=== PATIENT | female | born 1990 | race Caucasian/White ===

== ENCOUNTER 2017-02-01 02:25 | Outpatient (CLI) | payer OTHER | END 2017-02-01 02:26 | disposition critical access hospital (66) | DX: M25.812 Other specified joint disorders, left shoulder (principal); M25.512 Pain in left shoulder | CPT/HCPCS: A0425; A0429 ==

== ENCOUNTER 2017-02-01 02:36 | Emergency (ER) | payer OTHER | END 2017-02-01 07:34 | disposition home or self-care (01) | DX: S49.92XA Unspecified injury of left shoulder and upper arm, initial encounter (principal); W50.0XXA Accidental hit or strike by another person, initial encounter; F10.129 Alcohol abuse with intoxication, unspecified ==

== ENCOUNTER 2017-05-28 21:56 | Outpatient (CLI) | payer OTHER | END 2017-05-28 21:57 | disposition critical access hospital (66) | LOC: EMS 21:56 | PROVIDERS: ATTEND Surgery | DX: R07.9 Chest pain, unspecified (principal); R42 Dizziness and giddiness | CPT/HCPCS: A0425; A0429 ==

== ENCOUNTER 2017-05-28 22:09 | Emergency (ER) | payer OTHER ==
--- NOTE | 2017-05-28 22:13 | ED Physician Documentation ---
PD HPI SYNCOPE - Stated complaint Stated Complaint: NEAR SYNCOPE - History obtained from History obtained from: Patient - History of Present Illness Witnessed: Witnessed Timing - onset: Today Preceding symptoms: Chest pain (she has been having some chest pain, sharp and central/left substernal. Was initially with activity earlier in the day, and then noted it at rest as well. Sharp pain radiating to back. 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 Got feeling very weak. Some dyspnea as well. Brought here to ED for evaluation. Medics noted HR in 40s , but BP was adequate. Patient says her resting HR is typically 45-55.) Associated symptoms: Chest pain, Dyspnea. No: Nausea / vomiting, Abdominal pain Contributing factors: Exertion. No: Recent med change, Decreased PO intake Injury occurred: No: Head injury, Neck injury Treatment RAFTSMAN: Fluids Similar symptoms before: Has not had sx before Recently seen: Not recently seen Review of Systems Constitutional: denies: Fever, Chills Nose: denies: Rhinorrhea / runny nose, Congestion Throat: denies: Sore throat Cardiac: reports: Chest pain / pressure. denies: Palpitations, Pedal edema, Calf pain Respiratory: reports: Dyspnea. 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 : None HEENT: None Psych: None Musculoskeletal: None Derm: None - Past Surgical History Past Surgical History: Yes General: Appendectomy, Other Ortho: Other /BEAM DYER OPERATOR: LEEP (Cervical surgery), Other HEENT: Tonsil/Adenoidectomy - Present Medications Home Medications: Ambulatory Orders Medication Instructions Recorded Confirmed Fluticasone [Flonase] 1 spray NS DAILY 04/17/16 04/17/16 Cetirizine [ZyrTEC] 02/01/17 Cholecalciferol (Vitamin D3) 2,000 unit PO DAILY 05/28/17 05/28/17 [Vitamin D] Epinephrine [Epipen 2-Michael] 0.3 mg IJ .FREQ 05/28/17 05/28/17 Omeprazole [PriLOSEC] 20 mg PO DAILY 05/28/17 05/28/17 Hydrocodone/Acetaminophen [[place] 1 each PO Q6H PRN #15 tablet 05/29/17 5-325 Tablet] Naproxen [Naprosyn] 500 mg PO BID PRN #20 tablet 05/29/17 - Allergies Allergies/Adverse Reactions: Allergies Allergy/AdvReac Type Severity Reaction Status Date / Time Latex, Natural Rubber AdvReac Rash Verified 02/01/17 02:39 sulfamethoxazole AdvReac Hives Verified 02/01/17 02:39 [From Bactrim] trimethoprim [From Bactrim] AdvReac Hives Verified 02/01/17 02:39 - Social History Does the pt smoke?: No Smoking Status: Never smoker Does the pt drink ETOH?: No Does the pt have substance abuse?: No - Family History Family history: denies: Sudden , Aortic aneursym, Aortic dissection - Immunizations Immunizations are current?: Yes - POLST Patient has POLST: No PD ED PE NORMAL - Vitals Vital signs reviewed: Yes - General General: Alert and oriented X 3, No acute distress, Well developed/nourished - HEENT HEENT: Moist mucous membranes, Pharynx benign - Neck Neck: Supple, no meningeal sign, No adenopathy - Cardiac Cardiac: RRR, No murmur - Respiratory Respiratory: No respiratory distress, Clear bilaterally, Other (no chestwall tenderness) - Abdomen Abdomen: Soft, Non tender - Female Female : Deferred - Rectal Rectal: Deferred - Back Back: No CVA TTP - Derm Derm: Normal color, Warm and dry, No rash - Extremities Extremities: No tenderness to palpate, Normal ROM s pain, No edema, No calf tenderness / cord - Neuro Neuro: Alert and oriented X 3, No motor deficit, Normal speech Results - Vitals Vitals: Vital Signs - 24 hr 05/29/17 05/29/17 00:14 01:28 Heart Rate 56 L 49 L Respiratory 16 18 Rate Blood Pressure 111/69 118/68 O2 Saturation 100 100 Oxygen O2 Source Room air - EKG (time done) 22:24 Rate: Rate (enter#) (49) Rhythm: Sinus bradycardia [place]: Normal Intervals: Normal [place] QRS: Normal Ischemia: Normal ST segments. No: ST elevation c/w ischemia, ST depression - Labs Labs: Laboratory Tests 05/28/17 05/28/17 05/28/17 22:37 22:37 22:37 WBC 12.8 H RBC 4.86 Hgb 14.3 Hct 43.2 MCV 89.0 MCH 29.5 MCHC 33.1 RDW 13.0 Plt Count 293 MPV 10.3 Neut # 8.4 H Lymph # 3.5 [place] # 0.6 Eos # 0.2 Baso # 0.2 H Absolute Nucleated RBC 0.00 Nucleated RBCs 0.0 ESR 4 Sodium 139 Potassium 3.5 Chloride 103 Carbon Dioxide 27 Anion Gap 9.0 BUN 12 Creatinine 0.9 Estimated GFR (MDRD) 74 L Glucose 94 Calcium 9.7 Total Bilirubin 0.3 AST 21 ALT 14 Alkaline Phosphatase 76 Troponin I Total Protein 7.5 Albumin 4.6 Globulin 2.9 Albumin/Globulin Ratio 1.6 Lipase 24 Serum HCG, Qual Ur Specific [place] Urine HCG, Qual 05/28/17 05/28/17 05/28/17 22:37 22:37 23:30 WBC RBC Hgb Hct MCV MCH MCHC RDW Plt Count MPV Neut # Lymph # [place] # Eos # Baso # Absolute Nucleated RBC Nucleated RBCs ESR Sodium Potassium Chloride Carbon Dioxide Anion Gap BUN Creatinine Estimated GFR (MDRD) Glucose Calcium Total Bilirubin AST ALT Alkaline Phosphatase Troponin I < 0.04 Total Protein Albumin Globulin Albumin/Globulin Ratio Lipase Serum HCG, Qual NEGATIVE Ur Specific [place] <=1.005 Urine HCG, Qual NEGATIVE - Rads (name of study) chest Radiology: Prelim report reviewed, EMP read contemporaneously (normal) aorta angio Radiology: Prelim report reviewed (normal) PD MEDICAL DECISION MAKING - ED course Complexity details: reviewed results, considered differential (She says her resting heart rate is commonly 45-55, so this is not new. She is having sharp knife-like pain in substernal area to the back and was asssoicated with near- syncope earlier. I felt concern for aortic dissection, violet as pain came on with some exertion. Got CT as well, which was normal. Presume musculoskeletal of some sort. ), d/w patient Departure - Departure Disposition: 01 Home, Self Care Clinical Impression: Near syncope Chest pain Qualifiers: Chest pain type: unspecified Qualified Code(s): R07.9 - Chest pain, unspecified Condition: Stable Record reviewed to determine appropriate education?: Yes Instructions: ED Chest Pain Atypical Unkn Cause Follow-Up: Sharri Muñoz PA-C [Primary Care Provider] - Prescriptions: Naproxen [Naprosyn] 500 mg PO BID PRN #20 tablet PRN Reason: Pain Hydrocodone/Acetaminophen [[place] 5-325 Tablet] 1 each PO Q6H PRN #15 tablet PRN Reason: Pain Forms: Activity restrictions Discharge Date/Time: 05/29/17 01:50
[2017-05-28] MEDS ORDERED: KETOROLAC 60 MG/2 ML VIAL IVP STA (22:24)
[2017-05-28] MEDS ORDERED: SODIUM CHLORIDE 0.9% 1,000 ML IV ONE (22:24)
[2017-05-28] MEDS ORDERED: MORPHINE 10 MG/ML VIAL IVP STA (22:25)
[2017-05-28] MEDS ORDERED: KETOROLAC 30 MG/ML VIAL ONE (22:44)
[2017-05-28 22:45] LABS: BASOPHILS # (AUTO) 0.2 10^3/uL (0.0-0.1); BASOPHILS % (AUTO) 1.3 %; EOSINOPHILS # (AUTO) 0.2 10^3/uL (0.0-0.7); EOSINOPHILS % (AUTO) 1.2 %; HCT - HEMATOCRIT 43.2 % (37.0-47.0); HGB - HEMOGLOBIN 14.3 g/dL (12.0-16.0); LYMPHOCYTES # (AUTO) 3.5 10^3/uL (1.5-3.5); LYMPHOCYTES % (AUTO) 27.3 %; MEAN CORPUSCULAR HEMOGLOBIN 29.5 pg (27.0-31.0); MEAN CORPUSCULAR HGB CONC 33.1 g/dL (32.0-36.0); MEAN PLATELET VOLUME 10.3 fL (7.9-10.8); MONOCYTES # (AUTO) 0.6 10^3/uL (0.0-1.0); MONOCYTES % (AUTO) 4.3 %; NEUTROPHILS # (AUTO) 8.4 10^3/uL (1.5-6.6); NEUTROPHILS % (AUTO) 65.9 %; RED BLOOD COUNT 4.86 10^6/uL (4.20-5.40); UNCORRECTED WHITE BLOOD COUNT 12.8 x10^3/uL; WHITE BLOOD COUNT 12.8 x10^3/uL (4.8-10.8)
[2017-05-28] MEDS ORDERED: MORPHINE 2 MG/ML SYRINGE ONE (22:45)
[2017-05-28] MEDS ORDERED: MORPHINE 10 MG/ML VIAL ONE (22:48)
[2017-05-28] MEDS ORDERED: ONDANSETRON 4 MG/2 ML VIAL IVP STA (22:58)
[2017-05-28] MEDS ORDERED: ONDANSETRON 4 MG/2 ML VIAL ONE (22:59)
[2017-05-28 23:13] LABS: ALBUMIN/GLOBULIN RATIO 1.6 (1.0-2.2); BILIRUBIN,TOTAL 0.3 mg/dL (0.2-1.0); CALCIUM 9.7 mg/dL (8.5-10.3); CREATININE 0.9 mg/dL (0.4-1.0); POTASSIUM 3.5 mmol/L (3.5-5.0); TOTAL PROTEIN 7.5 g/dL (6.7-8.2)
--- NOTE | 2017-05-28 23:28 | XRAY Preliminary Report ---
Exam: XR Chest 2 View PA/LAT IMPRESSION: Normal 2-view chest radiography. [facility] SITE ID: [id number]
--- NOTE | 2017-05-28 23:30 | XRAY Report ---
EXAM: CHEST RADIOGRAPHY EXAM DATE: 05/28/2017 11:20 PM. CLINICAL HISTORY: Anterior chest pain. COMPARISON: 04/17/2016. TECHNIQUE: 2 views. FINDINGS: Lungs/Pleura: No focal opacities evident. No pleural effusion. No pneumothorax. Normal volumes. Mediastinum: Heart and mediastinal contours are unremarkable. Other: None. IMPRESSION: Normal 2-view chest radiography. [facility] Referring Provider Line: [phone] SITE ID: [id number]
[2017-05-28] MEDS ORDERED: HYDROmorphone 1 MG/ML SYRINGE IVP STA (23:46)
[2017-05-29] MEDS ORDERED: HYDROmorphone 1 MG/ML SYRINGE ONE (00:11)
[2017-05-29 00:23] LABS: HCG UR QUAL NEGATIVE
[2017-05-29] MEDS ORDERED: IOPAMIDOL-300 100 ML VIAL IVP ONE (01:08)
--- NOTE | 2017-05-29 01:31 | CT Preliminary Report ---
Exam: CT Chest Angio (AORTA) IMPRESSION: 1. No aortic aneurysm or dissection. 2. No pulmonary emboli. [facility] SITE ID: [id number]
[2017-05-29 01:32] VITALS: BP 118/68
--- NOTE | 2017-05-29 01:34 | CT Report ---
EXAM: CT ANGIOGRAM CHEST EXAM DATE: 05/29/2017 01:07 AM. CLINICAL HISTORY: Chest pain. COMPARISON: None. TECHNIQUE: Routine helical imaging was performed through the chest in the arterial phase. IV contrast : Nonionic. Reconstructions: Coronal, sagittal, and 3D MIP reconstructions of the aorta. In accordance with CT protocol optimization, one or more of the following dose reduction techniques w ere utilized for this exam: automated exposure control, adjustment of mA and/or KV based on patient s ize, or use of iterative reconstructive technique. FINDINGS: Vascular Structures: No aneurysm, dissection, or significant atherosclerotic disease of the thoracic aorta. Arch vessels are unremarkable. Visualized portions of the celiac axis, superior mesenteric art vasile, and bilateral renal arteries are unremarkable. The visualized pulmonary arteries are within norm al limits. Lungs/Pleura: Mild bilateral atelectasis. No pleural effusion. No pneumothorax. Mediastinum: Normal. No cardiac enlargement or adenopathy. Upper Abdomen: Unremarkable. Other: None. IMPRESSION: 1. No aortic aneurysm or dissection. 2. No pulmonary emboli. [facility] Referring Provider Line: [phone] SITE ID: [id number]
[2017-05-29] MEDS ORDERED: HYDROcod/ACET 5/325 Prepack 6 PO ONE (01:47)
== END 2017-05-29 01:50 | disposition home or self-care (01) ==
LOC: EDUNIT# → ED 22:09
DX: R55 Syncope and collapse (principal); R07.9 Chest pain, unspecified; R06.00 Dyspnea, unspecified
CPT/HCPCS: 36415; 71020; 71275; 80053; 81025; 83690; 84484; 84703; 85025; 85651; 93005; 96374; 96375; 99284; J1170; Q9967

== ENCOUNTER 2017-08-22 21:07 | Outpatient (CLI) | payer OTHER | END 2017-08-22 21:08 | disposition short-term general hospital (02) | LOC: EMS 21:07 | PROVIDERS: ATTEND Surgery | DX: R07.9 Chest pain, unspecified (principal) | CPT/HCPCS: A0425; A0427 ==

== ENCOUNTER 2018-02-09 13:48 | Outpatient (CLI) | payer OTHER | END 2018-02-09 13:49 | disposition short-term general hospital (02) | LOC: EMS 13:48 | PROVIDERS: ATTEND Surgery | DX: T78.09XA Anaphylactic reaction due to other food products, initial encounter (principal) | CPT/HCPCS: A0425; A0427 ==

== ENCOUNTER 2018-02-21 19:49 | Emergency (ER) | payer OTHER ==
[2018-02-21] MEDS ORDERED: DEXAMETHASONE 10 MG/ML VIAL IM STA (21:09)
[2018-02-21] MEDS ORDERED: LORATADINE 10 MG TABLET PO STA (21:09)
--- NOTE | 2018-02-21 21:11 | ED Physician Documentation ---
PD HPI SKIN - Stated complaint Stated Complaint: POSS ALLERGIC REACTION - Chief complaint Chief Complaint: Wound - History obtained from History obtained from: Patient, Friend - History of Present Illness Timing - onset: Last night (28-year-old with history of food allergies, specifically wheat. Sounds like she has to use epi-pens fairly frequently. She inadvertently ate some week containing food about 7 PM last night and shortly thereafter developed hives and itching all over with mild shortness of breath. She had 2 EpiPen's last night and also self administered steroids and has been taking Benadryl ever since with occasional recurrences of rash and chest pain.) Review of Systems Constitutional: denies: Fever, Chills Nose: denies: Rhinorrhea / runny nose Cardiac: reports: Chest pain / pressure, Palpitations Respiratory: reports: Dyspnea. 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 : None HEENT: None Psych: None Musculoskeletal: None Derm: None - Past Surgical History Past Surgical History: Yes General: Appendectomy, Other Ortho: Other /BEHAVIORAL HEALTH ASSISTANT: LEEP (Cervical surgery), Other HEENT: Tonsil/Adenoidectomy - Present Medications Home Medications: Ambulatory Orders Medication Instructions Recorded Confirmed Fluticasone [Flonase] 1 spray NS DAILY 04/17/16 04/17/16 Cetirizine [ZyrTEC] 02/01/17 Cholecalciferol (Vitamin D3) 2,000 unit PO DAILY 05/28/17 05/28/17 [Vitamin D] Epinephrine [Epipen 2-Michael] 0.3 mg IJ .FREQ 05/28/17 05/28/17 Omeprazole [PriLOSEC] 20 mg PO DAILY 05/28/17 05/28/17 Hydrocodone/Acetaminophen [[place] 1 each PO Q6H PRN #15 tablet 05/29/17 5-325 Tablet] Naproxen [Naprosyn] 500 mg PO BID PRN #20 tablet 05/29/17 EPINEPHrine [Epinephrine] 0.3 mg IJ ONCE PRN #2 auto.injct 02/21/18 hydrOXYzine PAMOATE [Vistaril] 25 mg PO Q6H PRN #15 capsule 02/21/18 - Allergies Allergies/Adverse Reactions: Allergies Allergy/AdvReac Type Severity Reaction Status Date / Time Latex, Natural Rubber AdvReac Rash Verified 02/21/18 19:59 sulfamethoxazole AdvReac Hives Verified 02/21/18 19:59 [From Bactrim] trimethoprim [From Bactrim] AdvReac Hives Verified 02/21/18 19:59 - Social History Does the pt smoke?: No Smoking Status: Never smoker Does the pt drink ETOH?: No Does the pt have substance abuse?: No - Immunizations Immunizations are current?: Yes - POLST Patient has POLST: No PD ED PE NORMAL - Vitals Vital signs reviewed: Yes - General General: Alert and oriented X 3, No acute distress - HEENT HEENT: PERRL, Pharynx benign - Neck Neck: Supple, no meningeal sign, No bony TTP - Cardiac Cardiac: RRR, No murmur - Respiratory Respiratory: No respiratory distress, Clear bilaterally - Derm Derm: No rash - Neuro Neuro: Alert and oriented X 3, Normal speech Results - Vitals Vitals: Vital Signs - 24 hr 02/21/18 19:57 Temperature 36.0 C L Heart Rate 52 L Respiratory 18 Rate Blood Pressure 119/73 O2 Saturation 100 Oxygen O2 Source Room air - EKG (time done) 2113 Rate: Rate (enter#) (50) Rhythm: NSR [place]: Normal Intervals: Normal [place] QRS: Normal Ischemia: Normal ST segments Computer interpretation: Agree with computer PD MEDICAL DECISION MAKING - ED course ED course: She has symptoms of food allergy but no overt physical signs. I do not think she needs more epinephrine at this juncture, but I did add Pepcid and Claritin to decrease the amount of Benadryl she feels like she needs. Departure - Departure Disposition: 01 Home, Self Care Clinical Impression: Allergic reaction Qualifiers: Encounter type: initial encounter Qualified Code(s): T78.40XA - Allergy, unspecified, initial encounter Condition: Good Record reviewed to determine appropriate education?: Yes Instructions: ED Allergic Reaction General Other Prescriptions: EPINEPHrine [Epinephrine] 0.3 mg IJ ONCE PRN #2 auto.injct PRN Reason: Allergy Symptoms hydrOXYzine PAMOATE [Vistaril] 25 mg PO Q6H PRN #15 capsule PRN Reason: Itching Comments: Continue Pepcid and Claritin which are available [id number] in addition to the antihistamine and steroids. Return if worsening.
[2018-02-21] MEDS: FAMOTIDINE 20 MG TABLET PO STA ×2 (21:15→21:27)
[2018-02-21] MEDS ORDERED: hydrOXYzine PAMOATE 25 MG CAPSULE PO STA (21:19)
[2018-02-21 21:34] VITALS: BP 112/74
== END 2018-02-21 21:34 | disposition home or self-care (01) ==
LOC: ED 19:49
DX: T78.1XXA Other adverse food reactions, not elsewhere classified, initial encounter (principal); X58.XXXA Exposure to other specified factors, initial encounter
CPT/HCPCS: 93005; 96372; 99283; A9270

== ENCOUNTER 2018-08-02 23:16 | Emergency (ER) | payer OTHER ==
[2018-08-02 23:49] LABS: BASOPHILS # (AUTO) 0.1 10^3/uL (0.0-0.1); BASOPHILS % (AUTO) 1.2 %; EOSINOPHILS # (AUTO) 0.2 10^3/uL (0.0-0.7); EOSINOPHILS % (AUTO) 1.9 %; HGB - HEMOGLOBIN 13.8 g/dL (12.0-16.0); LYMPHOCYTES # (AUTO) 3.3 10^3/uL (1.5-3.5); LYMPHOCYTES % (AUTO) 32.9 %; MEAN CORPUSCULAR HEMOGLOBIN 29.9 pg (27.0-31.0); MEAN CORPUSCULAR HGB CONC 33.8 g/dL (32.0-36.0); MEAN CORPUSCULAR VOLUME 88.3 fL (81.0-99.0); MEAN PLATELET VOLUME 10.5 fL (7.9-10.8); MONOCYTES # (AUTO) 0.7 10^3/uL (0.0-1.0); MONOCYTES % (AUTO) 6.6 %; NEUTROPHILS # (AUTO) 5.8 10^3/uL (1.5-6.6); NEUTROPHILS % (AUTO) 57.4 %; PLT - PLATELET COUNT 283 10^3/uL (130-450); RED BLOOD COUNT 4.63 10^6/uL (4.20-5.40); RED CELL DISTRIBUTION WIDTH 13.3 % (12.0-15.0); WHITE BLOOD COUNT 10.2 x10^3/uL (4.8-10.8)
[2018-08-03 00:02] LABS: BILIRUBIN,URINE NEGATIVE (NEGATIVE); GLUCOSE, URINE (UA) NEGATIVE (NEGATIVE); KETONES,URINE (UA) TRACE mg/dL (NEGATIVE); LEUKOCYTE ESTERASE, URINE NEGATIVE (NEGATIVE); NITRITE,URINE NEGATIVE (NEGATIVE); OCCULT BLOOD,URINE NEGATIVE (NEGATIVE); PROTEIN,URINE NEGATIVE (NEGATIVE); UROBILINOGEN,URINE 0.2 (NORMAL) E.U./dL (NORMAL)
[2018-08-03 00:03] LABS: ALBUMIN 4.1 g/dL (3.2-5.5); ALBUMIN/GLOBULIN RATIO 1.4 (1.0-2.2); BILIRUBIN,TOTAL 0.2 mg/dL (0.2-1.0); CREATININE 0.9 mg/dL (0.4-1.0)
[2018-08-03 00:03] LABS: CLARITY,URINE CLEAR (CLEAR)
[2018-08-03 00:04] LABS: HCG UR QUAL NEGATIVE
--- NOTE | 2018-08-03 00:17 | ED Physician Documentation ---
PD HPI CHEST PAIN - Stated complaint Stated Complaint: A FIB,CHEST PAIN - Chief complaint Chief Complaint: Cardiac - History obtained from History obtained from: Patient - History of Present Illness Timing - onset: Today Timing - onset during: Rest Timing - details: Abrupt onset, Now resolved Location: Substernal Associated symptoms: Feeling faint / dizzy. No: Shortness of air, Diaphoresis, Nausea Similar symptoms before: Work up / diagnostics, Treatment Recently seen: Clinic - Additional information Additional information: Patient is a 28 year old female with a history of paroxysmal a fib who is presenting to the emergency department for a fib. patient states that she had to stay up for 24 hours so had been drinking coffee. Patient states that today she had an episode of a fib. Patient monitors it on her watch. patient has seen a drive in theater attendant and had heart rate monitors. patient is due to follow up in about 10 days. Upon initial evaluation in the emergency department patient's symptoms had improved. 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 : None HEENT: None Psych: None Musculoskeletal: None Derm: None - Past Surgical History Past Surgical History: Yes General: Appendectomy, Other Ortho: Other /MARKETING OPERATIONS SPECIALIST: LEEP (Cervical surgery), Other HEENT: Tonsil/Adenoidectomy - Present Medications Home Medications: Ambulatory Orders Medication Instructions Recorded Confirmed Fluticasone [Flonase] 1 spray NS DAILY 04/17/16 04/17/16 Cetirizine [ZyrTEC] 02/01/17 Cholecalciferol (Vitamin D3) 2,000 unit PO DAILY 05/28/17 05/28/17 [Vitamin D] Epinephrine [Epipen 2-Michael] 0.3 mg IJ .FREQ 05/28/17 05/28/17 Omeprazole [PriLOSEC] 20 mg PO DAILY 05/28/17 05/28/17 Hydrocodone/Acetaminophen [[place] 1 each PO Q6H PRN #15 tablet 05/29/17 5-325 Tablet] Naproxen [Naprosyn] 500 mg PO BID PRN #20 tablet 05/29/17 EPINEPHrine [Epinephrine] 0.3 mg IJ ONCE PRN #2 auto.injct 02/21/18 hydrOXYzine PAMOATE [Vistaril] 25 mg PO Q6H PRN #15 capsule 02/21/18 Epinephrine [Epipen 2-Michael] 0.3 mg IJ ONCE #1 auto.injct 08/03/18 - Allergies Allergies/Adverse Reactions: Allergies Allergy/AdvReac Type Severity Reaction Status Date / Time Latex, Natural Rubber AdvReac Rash Verified 08/02/18 23:34 sulfamethoxazole AdvReac Hives Verified 08/02/18 23:34 [From Bactrim] trimethoprim [From Bactrim] AdvReac Hives Verified 08/02/18 23:34 - Social History Does the pt smoke?: No Smoking Status: Never smoker Does the pt drink ETOH?: No Does the pt have substance abuse?: No - Immunizations Immunizations are current?: Yes - POLST Patient has POLST: No PD ED PE NORMAL - Vitals Vital signs reviewed: Yes - General General: Alert and oriented X 3, No acute distress, Well developed/nourished - HEENT HEENT: Atraumatic, Moist mucous membranes - Cardiac Cardiac: RRR, No murmur - Respiratory Respiratory: No respiratory distress, Clear bilaterally - Abdomen Abdomen: Soft, Non tender, Non distended - Derm Derm: Normal color, Warm and dry, No rash - Extremities Extremities: No deformity, No edema - Neuro Neuro: Alert and oriented X 3, No motor deficit, Normal speech Eye Opening: Spontaneous Motor: Obeys Commands Verbal: Oriented GCS Score: 15 Results - Vitals Vitals: Vital Signs - 24 hr 08/02/18 23:33 Heart Rate 67 Respiratory 14 Rate Blood Pressure 109/71 O2 Saturation 100 Oxygen O2 Source Room air - EKG (time done) 2330 Rate: Rate (enter#) (61) Rhythm: NSR [place]: Normal QRS: Normal Compare to prior EKG: Unchanged from prior EKG - Labs Labs: Laboratory Tests 08/02/18 08/02/18 08/02/18 23:00 23:00 23:00 WBC 10.2 RBC 4.63 Hgb 13.8 Hct 40.9 MCV 88.3 MCH 29.9 MCHC 33.8 RDW 13.3 Plt Count 283 MPV 10.5 Neut # (Auto) 5.8 Lymph # (Auto) 3.3 [place] # (Auto) 0.7 Eos # (Auto) 0.2 Baso # (Auto) 0.1 Absolute Nucleated RBC 0.00 Nucleated RBC % 0.0 Sodium 137 Potassium 3.7 Chloride 105 Carbon Dioxide 26 Anion Gap 6.0 BUN 12 Creatinine 0.9 Estimated GFR (MDRD) 74 L Glucose 92 Calcium 9.0 Total Bilirubin 0.2 AST 21 ALT 15 Alkaline Phosphatase 67 Troponin I < 0.04 Total Protein 7.0 Albumin 4.1 Globulin 2.9 Albumin/Globulin Ratio 1.4 Lipase 33 TSH Urine Color Urine Clarity Urine pH Ur Specific [place] Urine Protein Urine Glucose (UA) Urine Ketones Urine Occult Blood Urine Nitrite Urine Bilirubin Urine Urobilinogen Ur Leukocyte Esterase Ur Microscopic Review Urine Culture Comments Urine HCG, Qual 08/02/18 08/02/18 23:00 23:52 WBC RBC Hgb Hct MCV MCH MCHC RDW Plt Count MPV Neut # (Auto) Lymph # (Auto) [place] # (Auto) Eos # (Auto) Baso # (Auto) Absolute Nucleated RBC Nucleated RBC % Sodium Potassium Chloride Carbon Dioxide Anion Gap BUN Creatinine Estimated GFR (MDRD) Glucose Calcium Total Bilirubin AST ALT Alkaline Phosphatase Troponin I Total Protein Albumin Globulin Albumin/Globulin Ratio Lipase TSH 4.60 Urine Color YELLOW Urine Clarity CLEAR Urine pH 7.0 Ur Specific [place] 1.015 Urine Protein NEGATIVE Urine Glucose (UA) NEGATIVE Urine Ketones TRACE Urine Occult Blood NEGATIVE Urine Nitrite NEGATIVE Urine Bilirubin NEGATIVE Urine Urobilinogen 0.2 (NORMAL) Ur Leukocyte Esterase NEGATIVE Ur Microscopic Review NOT INDICATED Urine Culture Comments NOT INDICATED Urine HCG, Qual NEGATIVE PD MEDICAL DECISION MAKING - ED course Complexity details: reviewed old records, reviewed results, re-evaluated patient, considered differential, d/w patient, d/w family ED course: Patient was seen and examined at bedside. ekg was performed and showed a sinus rhythm. patient's labs were drawn and her diagnostics were all within normal limits. patient had no episodes of a-fib while in the emergency department. a discussion was had with the patient about started a beta roberto or calcium channel roberto but her resting heart rate is in the 40s. Patient has close cardiac follow up and was stable for discharge with outpatient follow up. - Sepsis Event Vital Signs: Vital Signs - 24 hr 08/02/18 23:33 Heart Rate 67 Respiratory 14 Rate Blood Pressure 109/71 O2 Saturation 100 Oxygen O2 Source Room air Departure - Departure Disposition: Home, Self Care Clinical Impression: Paroxysmal A-fib Condition: Good Instructions: ED Paroxysmal Atrial Flutter Follow-Up: primary,care provider [Other] - Within 3 Days Prescriptions: Epinephrine [Epipen 2-Michael] 0.3 mg IJ ONCE #1 auto.injct Comments: Your diagnostics today were within normal limits. You are likely going into and out of a fib. As you know you should avoid stressors, caffeine, alcohol or stimulants. You should talk with your doctor on sunday for follow up and definitive care. You may return to the emergency department at any time for new, worsening or uncontrollable symptoms. Forms: Activity restrictions
[2018-08-03 01:03] VITALS: BP 116/67
== END 2018-08-03 01:03 | disposition home or self-care (01) ==
LOC: ED 23:16
DX: I48.0 Paroxysmal atrial fibrillation (principal)
CPT/HCPCS: 36415; 80053; 81001; 81003; 81025; 83690; 84443; 84484; 85025; 87086; 93005; 99283; 99284

== ENCOUNTER 2019-03-25 15:10 | Emergency (ER) | payer OTHER ==
--- NOTE | 2019-03-25 15:25 | ED Physician Documentation ---
PD HPI FEMALE - Stated complaint Stated Complaint: FEMALE - History obtained from History obtained from: Patient - History of Present Illness Timing - onset: How many days ago (3) Timing - duration: Days (3) Timing - details: Gradual onset Pain level max: 4 Pain level max: 3 Associated symptoms: Vaginal bleeding. 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 : None HEENT: None Psych: None Musculoskeletal: None Derm: None - Past Surgical History Past Surgical History: Yes General: Appendectomy, Other Ortho: Other /PASTORAL COUNSELOR: LEEP (Cervical surgery), Other HEENT: Tonsil/Adenoidectomy - Present Medications Home Medications: Ambulatory Orders Medication Instructions Recorded Confirmed Fluticasone [Flonase] 1 spray NS DAILY 04/17/16 04/17/16 Cetirizine [ZyrTEC] 02/01/17 Cholecalciferol (Vitamin D3) 2,000 unit PO DAILY 05/28/17 05/28/17 [Vitamin D] EPINEPHrine [Epipen 2-Michael] 0.3 mg IJ .FREQ 05/28/17 05/28/17 Omeprazole [PriLOSEC] 20 mg PO DAILY 05/28/17 05/28/17 Hydrocodone/Acetaminophen [Mchenry 1 each PO Q6H PRN #15 tablet 05/29/17 5-325 Tablet] Naproxen [Naprosyn] 500 mg PO BID PRN #20 tablet 05/29/17 EPINEPHrine [Epinephrine] 0.3 mg IJ ONCE PRN #2 auto.injct 02/21/18 hydrOXYzine PAMOATE [Vistaril] 25 mg PO Q6H PRN #15 capsule 02/21/18 EPINEPHrine [Epipen 2-Michael] 0.3 mg IJ ONCE #1 auto.injct 08/03/18 Oxycodone HCl/Acetaminophen 1 - 2 each PO Q6H PRN #10 tablet 03/25/19 [Percocet 5-325 mg Tablet] - Allergies Allergies/Adverse Reactions: Allergies Allergy/AdvReac Type Severity Reaction Status Date / Time grass pollen Allergy Anaphylaxis Verified 03/25/19 15:25 wheat Allergy Anaphylaxis Verified 03/25/19 15:25 Latex, Natural Rubber AdvReac Rash Verified 03/25/19 15:25 sulfamethoxazole AdvReac Hives Verified 03/25/19 15:25 [From Bactrim] trimethoprim [From Bactrim] AdvReac Hives Verified 03/25/19 15:25 - Social History Does the pt smoke?: No Smoking Status: Never smoker Does the pt drink ETOH?: No Does the pt have substance abuse?: No - Immunizations Immunizations are current?: Yes - POLST Patient has POLST: No PD ED PE NORMAL - Vitals Vital signs reviewed: Yes - General General: Alert and oriented X 3, No acute distress - HEENT HEENT: Moist mucous membranes - Neck Neck: Supple, no meningeal sign - Cardiac Cardiac: RRR - Respiratory Respiratory: No respiratory distress, Clear bilaterally - Abdomen Abdomen: Soft, Non tender, Non distended - Back Back: No CVA TTP, No spinal TTP - Derm Derm: Warm and dry, No rash - Extremities Extremities: No edema - Neuro Neuro: Alert and oriented X 3 - Psych Psych: Normal mood, Normal affect Results - Vitals Vitals: Vital Signs - 24 hr 03/25/19 03/25/19 03/25/19 15:20 15:24 17:18 Temperature 36.8 C Heart Rate 86 77 52 L Respiratory 17 18 14 Rate Blood Pressure 147/80 H 147/80 H 109/61 O2 Saturation 100 100 98 03/25/19 18:08 Temperature Heart Rate 56 L Respiratory 14 Rate Blood Pressure 99/56 L O2 Saturation 99 Oxygen O2 Source Room air - Labs Labs: Laboratory Tests 03/25/19 03/25/19 03/25/19 15:40 15:40 15:40 WBC 8.8 RBC 4.71 Hgb 13.8 Hct 41.4 MCV 87.8 MCH 29.4 MCHC 33.5 RDW 13.3 Plt Count 271 MPV 10.4 Neut # (Auto) 5.7 Lymph # (Auto) 2.4 [place] # (Auto) 0.6 Eos # (Auto) 0.1 Baso # (Auto) 0.1 Absolute Nucleated RBC 0.00 Nucleated RBC % 0.1 PT 12.8 H INR 1.1 APTT 33.5 H Sodium 137 Potassium 3.9 Chloride 100 L Carbon Dioxide 25 Anion Gap 12.0 BUN 7 Creatinine 0.8 Estimated GFR (MDRD) 84 L Glucose 100 Calcium 9.4 Total Bilirubin 0.7 AST 22 ALT 16 Alkaline Phosphatase 56 Total Protein 7.1 Albumin 4.2 Globulin 2.9 Albumin/Globulin Ratio 1.4 Lipase 27 HCG, Quant Urine Color Urine Clarity Urine pH Ur Specific [place] Urine Protein Urine Glucose (UA) Urine Ketones Urine Occult Blood Urine Nitrite Urine Bilirubin Urine Urobilinogen Ur Leukocyte Esterase Urine RBC Urine WBC Ur Squamous Epith Cells Urine Bacteria Ur Microscopic Review Urine Culture Comments Blood Type Antibody Screen 03/25/19 03/25/19 03/25/19 15:40 15:40 16:13 WBC RBC Hgb Hct MCV MCH MCHC RDW Plt Count MPV Neut # (Auto) Lymph # (Auto) [place] # (Auto) Eos # (Auto) Baso # (Auto) Absolute Nucleated RBC Nucleated RBC % PT INR APTT Sodium Potassium Chloride Carbon Dioxide Anion Gap BUN Creatinine Estimated GFR (MDRD) Glucose Calcium Total Bilirubin AST ALT Alkaline Phosphatase Total Protein Albumin Globulin Albumin/Globulin Ratio Lipase HCG, Quant 60492.00 Urine Color RED/BLOODY Urine Clarity CLEAR Urine pH 7.0 Ur Specific [place] <=1.005 Urine Protein 100 H Urine Glucose (UA) NEGATIVE Urine Ketones NEGATIVE Urine Occult Blood LARGE H Urine Nitrite NEGATIVE Urine Bilirubin NEGATIVE Urine Urobilinogen 0.2 (NORMAL) Ur Leukocyte Esterase TRACE H Urine RBC TNTC H Urine WBC 0-3 Ur Squamous Epith Cells NONE SEEN Urine Bacteria None Seen Ur Microscopic Review INDICATED Urine Culture Comments INDICATED Blood Type O POSITIVE Antibody Screen NEGATIVE - Rads (name of study) OB ultrasound Radiology: Prelim report reviewed, EMP read contemporaneously, See rad report (Possible gestational sac at the lower uterine segment in the endometrium, a mean sac diameter measures 5.5 mm corresponding to 4 weeks 3 days, has irregular contour, could represent spontaneous in progress. See above. No embryo or yolk sac is seen. No definite intrauterine is seen. No evidence for an ectopic . An ectopic is not excluded. Follow-up is recommended. Correlate with serial beta hCGs. Posterior uterine intramural fibroid measuring 1.9 x 1.9 x 1.8 cm) PD MEDICAL DECISION MAKING - ED course Complexity details: reviewed old records, reviewed results, re-evaluated patient, considered differential, d/w patient ED course: Bleeding decreased in the emergency department. She appears to be having a spontaneous . This is consistent with the notes from her OB. Her hCG is stable. Her pain is well controlled. Will prescribe pain medication for home. Discussed the case with Dr. Brooks, OB from [facility] on-call who recommends follow-up with serial hCGs in the clinic. Patient counseled regarding signs and symptoms for which I believe and urgent re-evaluation would be necessary. Patient with good understanding of and agreement to plan and is comfortable going home at this time This document was made in part using voice recognition software. While efforts are made to proofread this document, sound alike and grammatical errors may occur. Departure - Departure Disposition: 01 Home, Self Care Clinical Impression: Spontaneous Condition: Good Instructions: ED Miscarriage Incom Follow-Up: Dylon Brooks MD [Physician No Access] - Within 3 Days Prescriptions: Oxycodone HCl/Acetaminophen [Percocet 5-325 mg Tablet] 1 - 2 each PO Q6H PRN #10 tablet PRN Reason: pain Comments: Follow up with OB within 3 days for serial HCG's. Your ultrasound does not show any evidence of an ectopic tonight. It appears that you are miscarrying. Your blood counts are normal. Your HCG level is 12,900. I spoke with Dr. Cecilia hill. Do not drink alcohol or drive while on narcotic pain medicine. Note that many narcotic pain relievers also contain tylenol/acetaminophen. Please ensure that your total dose of acetaminophen from all sources does not exceed 3 grams (3000mg) per day. You may constipated on this medication, take a stool softener such as "Colace" twice a day while you are on it. Also recommend a [id number] laxative such as senna or MiraLAX any day that you do not have a bowel movement. If you received narcotic pain medication in the emergency department, do not drive or operate machinery for the next 24 hours.
[2019-03-25] MEDS ORDERED: SODIUM CHLORIDE 0.9% 1,000 ML IV ONE ×2 (15:33)
[2019-03-25] MEDS ORDERED: ONDANSETRON 4 MG/2 ML VIAL IVP STA (15:43)
[2019-03-25] MEDS ORDERED: HYDROmorphone 1 MG/ML CARPUJECT IVP STA ×2 (15:43→16:50)
[2019-03-25 15:50] LABS: BASOPHILS # (AUTO) 0.1 10^3/uL (0.0-0.1); BASOPHILS % (AUTO) 0.7 %; EOSINOPHILS # (AUTO) 0.1 10^3/uL (0.0-0.7); EOSINOPHILS % (AUTO) 0.9 %; HGB - HEMOGLOBIN 13.8 g/dL (12.0-16.0); LYMPHOCYTES # (AUTO) 2.4 10^3/uL (1.5-3.5); LYMPHOCYTES % (AUTO) 27.6 %; MEAN CORPUSCULAR HEMOGLOBIN 29.4 pg (27.0-31.0); MEAN CORPUSCULAR HGB CONC 33.5 g/dL (32.0-36.0); MEAN CORPUSCULAR VOLUME 87.8 fL (81.0-99.0); MEAN PLATELET VOLUME 10.4 fL (7.9-10.8); MONOCYTES # (AUTO) 0.6 10^3/uL (0.0-1.0); MONOCYTES % (AUTO) 6.5 %; NEUTROPHILS # (AUTO) 5.7 10^3/uL (1.5-6.6); NEUTROPHILS % (AUTO) 64.3 %; PLT - PLATELET COUNT 271 10^3/uL (130-450); RED BLOOD COUNT 4.71 10^6/uL (4.20-5.40); RED CELL DISTRIBUTION WIDTH 13.3 % (12.0-15.0); WHITE BLOOD COUNT 8.8 x10^3/uL (4.8-10.8)
[2019-03-25 16:01] LABS: INR 1.1 (0.8-1.2); PT - PROTHROMBIN TIME 12.8 secs (9.9-12.6)
[2019-03-25 16:03] LABS: ALBUMIN 4.2 g/dL (3.2-5.5); ALBUMIN/GLOBULIN RATIO 1.4 (1.0-2.2); BILIRUBIN,TOTAL 0.7 mg/dL (0.2-1.0); CALCIUM 9.4 mg/dL (8.5-10.3); CREATININE 0.8 mg/dL (0.4-1.0); TOTAL PROTEIN 7.1 g/dL (6.7-8.2)
[2019-03-25 16:08] LABS: PARTIAL THROMBOPLASTIN TIME 33.5 secs (24.9-33.3)
[2019-03-25 16:20] LABS: BILIRUBIN,URINE NEGATIVE (NEGATIVE); GLUCOSE, URINE (UA) NEGATIVE (NEGATIVE); KETONES,URINE (UA) NEGATIVE (NEGATIVE); LEUKOCYTE ESTERASE, URINE TRACE (NEGATIVE); NITRITE,URINE NEGATIVE (NEGATIVE); OCCULT BLOOD,URINE LARGE (NEGATIVE); PROTEIN,URINE 100 mg/dL (NEGATIVE); UROBILINOGEN,URINE 0.2 (NORMAL) E.U./dL (NORMAL)
[2019-03-25 16:21] LABS: CLARITY,URINE CLEAR (CLEAR)
[2019-03-25 16:34] LABS: BACTERIA,URINE None Seen /HPF (None Seen); RBC,URINE TNTC /HPF (0-5); SQUAMOUS EPITHELIAL CELL,UR NONE SEEN (<= Few)
--- NOTE | 2019-03-25 17:22 | Ultrasound Report ---
Reason: 9 weeks EGA, VB Procedure Date: 03/25/2019 Accession Number: [id number] / [id number] Procedure: US - OB First Trimester CPT Code: FULL RESULT: EXAM: FIRST TRIMESTER OBSTETRIC ULTRASOUND ULTRASOUND OB TRANSVAGINAL (Less than 11 weeks) EXAM DATE: 03/25/2019 03:53 PM. CLINICAL HISTORY: 9 weeks EGA, vaginal bleeding. Positive hCG. Left lower quadrant pain. Heavy bleeding. LMP: 01/17/2019, EGA 9 weeks 4 days, GEETA 10/24/2019. COMPARISONS: None. TECHNIQUE: Transabdominal and transvaginal ultrasound examination with static image documentation. ASSESSMENT: Possible gestational sac at the lower uterine segment in the endometrium, a mean sac diameter measures 5.5 mm corresponding to 4 weeks 3 days, has irregular contour, could represent spontaneous in progress. No embryo or yolk sac is seen. No definite intrauterine is seen. The uterus was anteverted. Posterior uterine intramural fibroid measuring 1.9 x 1.9 x 1.8 cm. The cervix appears open with blood clots within it. The right ovary measures 2.8 x 1.3 x 2.4 cm, volume of 4.6 cc. Left ovary measures 2.9 x 1.3 x 2.6 cm with a volume of 5.1 cc. Both ovaries appear within normal limits. No adnexal mass is seen. No free fluid is seen. IMPRESSION: 1.Possible gestational sac at the lower uterine segment in the endometrium, a mean sac diameter measures 5.5 mm corresponding to 4 weeks 3 days, has irregular contour, could represent spontaneous in progress. See above. No embryo or yolk sac is seen. No definite intrauterine is seen. No evidence for an ectopic . An ectopic is not excluded. Follow-up is recommended. Correlate with serial beta hCGs. 2. Posterior uterine intramural fibroid measuring 1.9 x 1.9 x 1.8 cm. RADIA
--- NOTE | 2019-03-25 17:23 | Ultrasound Report ---
Reason: 9 weeks EGA, VB Procedure Date: 03/25/2019 Accession Number: [id number] / [id number] Procedure: US - OB Transvaginal CPT Code: FULL RESULT: EXAM: FIRST TRIMESTER OBSTETRIC ULTRASOUND ULTRASOUND OB TRANSVAGINAL (Less than 11 weeks) EXAM DATE: 03/25/2019 03:53 PM. CLINICAL HISTORY: 9 weeks EGA, vaginal bleeding. Positive hCG. Left lower quadrant pain. Heavy bleeding. LMP: 01/17/2019, EGA 9 weeks 4 days, GEETA 10/24/2019. COMPARISONS: None. TECHNIQUE: Transabdominal and transvaginal ultrasound examination with static image documentation. ASSESSMENT: Possible gestational sac at the lower uterine segment in the endometrium, a mean sac diameter measures 5.5 mm corresponding to 4 weeks 3 days, has irregular contour, could represent spontaneous in progress. No embryo or yolk sac is seen. No definite intrauterine is seen. The uterus was anteverted. Posterior uterine intramural fibroid measuring 1.9 x 1.9 x 1.8 cm. The cervix appears open with blood clots within it. The right ovary measures 2.8 x 1.3 x 2.4 cm, volume of 4.6 cc. Left ovary measures 2.9 x 1.3 x 2.6 cm with a volume of 5.1 cc. Both ovaries appear within normal limits. No adnexal mass is seen. No free fluid is seen. IMPRESSION: 1.Possible gestational sac at the lower uterine segment in the endometrium, a mean sac diameter measures 5.5 mm corresponding to 4 weeks 3 days, has irregular contour, could represent spontaneous in progress. See above. No embryo or yolk sac is seen. No definite intrauterine is seen. No evidence for an ectopic . An ectopic is not excluded. Follow-up is recommended. Correlate with serial beta hCGs. 2. Posterior uterine intramural fibroid measuring 1.9 x 1.9 x 1.8 cm. RADIA
[2019-03-25 18:09] VITALS: BP 99/56
== END 2019-03-25 18:45 | disposition home or self-care (01) ==
LOC: ED 15:10
DX: O20.0 Threatened abortion (principal); O34.11 Maternal care for benign tumor of corpus uteri, first trimester; D25.1 Intramural leiomyoma of uterus; Z3A.09 9 weeks gestation of pregnancy
CPT/HCPCS: 76801; 76817; 80053; 81001; 83690; 84702; 85025; 85610; 85730; 86850; 86900; 86901; 87086; 96361; 96374; 96376; 99283; 99284; J1170; 81003

== ENCOUNTER 2019-09-24 22:22 | Emergency (ER) | payer OTHER ==
--- NOTE | 2019-09-24 23:11 | ED Physician Documentation ---
PD HPI CHEST PAIN - Stated complaint Stated Complaint: CP/DIZZY - Chief complaint Chief Complaint: Cardiac - History obtained from History obtained from: Patient - History of Present Illness Timing - onset: Today Timing - onset during: Rest Timing - duration: Hours Timing - details: Gradual onset, Still present, Waxing and waning Quality: Sharp, Pain Location: Left chest Radiation: No: Jaw, Neck, Back, Abdominal, Left upper extremity, Right upper ext remity Improved by: Nothing Worsened by: Palpation Similar symptoms before: Has not had sx before Recently seen: Not recently seen - Additional information Additional information: 29-year-old female with a prior history of recurrent spontaneous has de veloped some pain in her anterior chest today over the past several hours it is been waxing and waning maximum pain of 8 now 5 and she has not had these symptoms previously. She does have some tenderness to her chest wall she denies any sobbing at night she denies any asthma symptoms. She denies any increase in her pain with exertion and she denies any radiation of the pain. Review of Systems Constitutional: denies: Fever Eyes: denies: Decreased vision Ears: denies: Ear pain Nose: denies: Rhinorrhea / runny nose, Congestion Throat: denies: Sore throat Cardiac: reports: Chest pain / pressure, Palpitations Respiratory: denies: Dyspnea, Cough GI: reports: Nausea Skin: denies: Rash Musculoskeletal: denies: Neck pain, Back pain Neurologic: denies: Generalized weakness, Focal weakness, Numbness PD PAST MEDICAL HISTORY - Past Medical History Past Medical History: Yes Cardiovascular: Atrial fibrillation, Other Respiratory: None Neuro: None Endocrine/Autoimmune: None GI: None 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 : None HEENT: None Psych: None Musculoskeletal: None Derm: None - Past Surgical History Past Surgical History: Yes General: Appendectomy, Other Ortho: Other /SENIOR QUALITATIVE RESEARCHER: LEEP (Cervical surgery), Other HEENT: Tonsil/Adenoidectomy - Present Medications Home Medications: Ambulatory Orders Medication Instructions Recorded Confirmed Fluticasone [Flonase] 1 spray NS DAILY 04/17/16 09/25/19 Cholecalciferol (Vitamin D3) 2,000 unit PO DAILY 05/28/17 09/25/19 [Vitamin D] EPINEPHrine [Epipen 2-Michael] 0.3 mg IJ ONCE #1 auto.injct 08/03/18 09/25/19 Esomeprazole Magnesium [Nexium] 20 mg PO DAILY 09/25/19 09/25/19 Propafenone HCl [Propafenone HCl 225 mg PO BID 09/25/19 09/25/19 ER] - Allergies Allergies/Adverse Reactions: Allergies Allergy/AdvReac Type Severity Reaction Status Date / Time bee venom protein (honey bee) Allergy Anaphylaxis Verified 09/24/19 22:27 grass pollen Allergy Anaphylaxis Verified 03/25/19 15:25 wheat Allergy Anaphylaxis Verified 03/25/19 15:25 Latex, Natural Rubber AdvReac Rash Verified 03/25/19 15:25 sulfamethoxazole AdvReac Hives Verified 03/25/19 15:25 [From Bactrim] trimethoprim [From Bactrim] AdvReac Hives Verified 03/25/19 15:25 - Social History Does the pt smoke?: No Smoking Status: Never smoker Does the pt drink ETOH?: No Does the pt have substance abuse?: No - Immunizations Immunizations are current?: Yes - POLST Patient has POLST: No PD ED PE NORMAL - Vitals Vital signs reviewed: Yes (hypertensive ) - General General: Alert and oriented X 3, No acute distress, Well developed/nourished - HEENT HEENT: Atraumatic, PERRL, EOMI - Neck Neck: Supple, no meningeal sign, No bony TTP - Cardiac Cardiac: RRR, No murmur - Respiratory Respiratory: No respiratory distress, Clear bilaterally, Other (There is tenderness to the anterior chest wall that reproduces the symptoms the patient is having) - Abdomen Abdomen: Soft, Non tender, No organomegaly - Back Back: No CVA TTP, No spinal TTP - Derm Derm: Normal color, Warm and dry, No rash - Extremities Extremities: No deformity, No edema - Neuro Neuro: Alert and oriented X 3, 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, No motor deficit, No sensory deficit, Normal speech Eye Opening: Spontaneous Motor: Obeys Commands Verbal: Oriented GCS Score: 15 - Psych Psych: Normal mood, Normal affect Results - Vitals Vitals: Oxygen O2 Source Room air - EKG (time done) 2229 Rate: Rate (enter#) (58) Rhythm: NSR Intervals: Prolonged MI QRS: Low voltage Compare to prior EKG: Unchanged from prior EKG (SPT 08-02-2018 no changes) Computer interpretation: Agree with computer - Labs Labs: Laboratory Tests 09/24/19 09/24/19 09/24/19 23:05 23:20 23:20 WBC 10.9 H RBC 4.76 Hgb 14.0 Hct 42.2 MCV 88.7 MCH 29.4 MCHC 33.2 RDW 12.5 Plt Count 301 MPV 11.7 H Neut # (Auto) 6.4 Lymph # (Auto) 3.5 [place] # (Auto) 0.7 Eos # (Auto) 0.2 Baso # (Auto) 0.1 Absolute Nucleated RBC 0.00 Nucleated RBC % 0.0 Sodium 139 Potassium 3.9 Chloride 104 Carbon Dioxide 27 Anion Gap 8.0 BUN 18 Creatinine 0.9 Estimated GFR (MDRD) 73 L Glucose 92 Calcium 9.2 Total Bilirubin 0.6 AST 18 ALT 15 Alkaline Phosphatase 66 Troponin I High Sens Total Protein 7.1 Albumin 4.3 Globulin 2.8 Albumin/Globulin Ratio 1.5 Lipase 29 Urine Color YELLOW Urine Clarity CLEAR Urine pH 6.5 Ur Specific [place] <=1.005 Urine Protein NEGATIVE Urine Glucose (UA) NEGATIVE Urine Ketones NEGATIVE Urine Occult Blood NEGATIVE Urine Nitrite NEGATIVE Urine Bilirubin NEGATIVE Urine Urobilinogen 0.2 (NORMAL) Ur Leukocyte Esterase NEGATIVE Ur Microscopic Review NOT INDICATED Urine Culture Comments NOT INDICATED Urine HCG, Qual NEGATIVE 09/24/19 23:20 WBC RBC Hgb Hct MCV MCH MCHC RDW Plt Count MPV Neut # (Auto) Lymph # (Auto) [place] # (Auto) Eos # (Auto) Baso # (Auto) Absolute Nucleated RBC Nucleated RBC % Sodium Potassium Chloride Carbon Dioxide Anion Gap BUN Creatinine Estimated GFR (MDRD) Glucose Calcium Total Bilirubin AST ALT Alkaline Phosphatase Troponin I High Sens < 2.3 L Total Protein Albumin Globulin Albumin/Globulin Ratio Lipase Urine Color Urine Clarity Urine pH Ur Specific [place] Urine Protein Urine Glucose (UA) Urine Ketones Urine Occult Blood Urine Nitrite Urine Bilirubin Urine Urobilinogen Ur Leukocyte Esterase Ur Microscopic Review Urine Culture Comments Urine HCG, Qual - Rads (name of study) chest Radiology: Prelim report reviewed (Impression: Normal two-view chest radiography.), EMP read indepedently, See rad report PD MEDICAL DECISION MAKING - ED course Complexity details: reviewed old records, reviewed results, re-evaluated patient, considered differential, d/w patient, d/w family ED course: 29-year-old female with left-sided parasternal chest pain on palpation has a negative diagnostic work-up including x-ray of the chest electrocardiogram and troponin. There are no other physical exam findings with the exception of the tenderness to the left parasternal area consistent with costochondritis. She indicates that she has had a prior rib injury to this area. I find no other signs of infection. The patient is treated with dexamethasone 10 mg orally and we will encourage the use of ibuprofen for treatment. Departure - Departure Disposition: 01 Home, Self Care Clinical Impression: Costochondritis, acute Condition: Stable Instructions: ED Chest Pain Costochondritis Follow-Up: ALEXSANDRA Morin [Provider Group] Discharge Date/Time: 09/25/19 00:18
[2019-09-24 23:22] LABS: BILIRUBIN,URINE NEGATIVE (NEGATIVE); GLUCOSE, URINE (UA) NEGATIVE (NEGATIVE); KETONES,URINE (UA) NEGATIVE (NEGATIVE); LEUKOCYTE ESTERASE, URINE NEGATIVE (NEGATIVE); NITRITE,URINE NEGATIVE (NEGATIVE); OCCULT BLOOD,URINE NEGATIVE (NEGATIVE); PH,URINE 6.5 PH (5.0-7.5); PROTEIN,URINE NEGATIVE (NEGATIVE); UROBILINOGEN,URINE 0.2 (NORMAL) E.U./dL (NORMAL)
[2019-09-24 23:24] LABS: CLARITY,URINE CLEAR (CLEAR); HCG UR QUAL NEGATIVE
[2019-09-24 23:29] LABS: BASOPHILS # (AUTO) 0.1 10^3/uL (0.0-0.1); EOSINOPHILS # (AUTO) 0.2 10^3/uL (0.0-0.7); EOSINOPHILS % (AUTO) 1.7 %; LYMPHOCYTES # (AUTO) 3.5 10^3/uL (1.5-3.5); LYMPHOCYTES % (AUTO) 32.1 %; MEAN CORPUSCULAR HEMOGLOBIN 29.4 pg (27.0-31.0); MEAN CORPUSCULAR HGB CONC 33.2 g/dL (32.0-36.0); MEAN CORPUSCULAR VOLUME 88.7 fL (81.0-99.0); MEAN PLATELET VOLUME 11.7 fL (7.9-10.8); MONOCYTES # (AUTO) 0.7 10^3/uL (0.0-1.0); MONOCYTES % (AUTO) 6.3 %; NEUTROPHILS # (AUTO) 6.4 10^3/uL (1.5-6.6); NEUTROPHILS % (AUTO) 58.5 %; PLT - PLATELET COUNT 301 10^3/uL (130-450); RED BLOOD COUNT 4.76 10^6/uL (4.20-5.40); RED CELL DISTRIBUTION WIDTH 12.5 % (12.0-15.0); WHITE BLOOD COUNT 10.9 x10^3/uL (4.8-10.8)
[2019-09-24] MEDS ORDERED: DEXAMETHASONE 10 MG/ML VIAL PO STA (23:31)
[2019-09-24] MEDS ORDERED: CHERRY SYRUP 10 ML UDC PO ONE (23:31)
[2019-09-24 23:40] LABS: ALBUMIN 4.3 g/dL (3.2-5.5); ALBUMIN/GLOBULIN RATIO 1.5 (1.0-2.2); BILIRUBIN,TOTAL 0.6 mg/dL (0.2-1.0); CALCIUM 9.2 mg/dL (8.5-10.3); CREATININE 0.9 mg/dL (0.4-1.0); TOTAL PROTEIN 7.1 g/dL (6.7-8.2)
[2019-09-25 00:12] VITALS: BP 98/63
--- NOTE | 2019-09-25 00:23 | XRAY Report ---
Reason: L chest pain Procedure Date: 09/24/2019 Accession Number: [id number] / [id number] Procedure: XR - Chest 2 View X-Ray CPT Code: 09209 Final Report FULL RESULT: EXAM: CHEST RADIOGRAPHY EXAM DATE: 09/24/2019 11:40 PM. CLINICAL HISTORY: L chest pain. COMPARISON: CHEST 2 VIEW PA/LAT 05/28/2017 10:43 PM. TECHNIQUE: 2 views. FINDINGS: Lungs/Pleura: No focal opacities evident. No pleural effusion. No pneumothorax. Normal volumes. Mediastinum: Heart and mediastinal contours are unremarkable. Other: None. IMPRESSION: Normal 2-view chest radiography. RADIA
== END 2019-09-25 00:18 | disposition home or self-care (01) ==
LOC: ED 22:22
DX: M94.0 Chondrocostal junction syndrome [Tietze] (principal)
CPT/HCPCS: 36415; 71046; 80053; 81003; 81025; 83690; 84484; 85025; 93005; 99284; A9270; 81001; 87086

== ENCOUNTER 2019-10-05 17:38 | Emergency (ER) | payer OTHER ==
--- NOTE | 2019-10-05 17:49 | ED Physician Documentation ---
PD HPI ABD PAIN - Stated complaint Stated Complaint: FGU - Chief complaint Chief Complaint: Abd Pain - History obtained from History obtained from: Patient (This is a G7, P0 with frequent miscarriages. She is at 5 weeks by dates and developed heavy vaginal bleeding. Minimal pain. 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 : None HEENT: None Psych: None Musculoskeletal: None Derm: None - Past Surgical History Past Surgical History: Yes General: Appendectomy, Other Ortho: Other /LOCK CORNER MACHINE OPERATOR: LEEP (Cervical surgery), Other HEENT: Tonsil/Adenoidectomy - Present Medications Home Medications: Ambulatory Orders Medication Instructions Recorded Confirmed Fluticasone [Flonase] 1 spray NS DAILY 04/17/16 09/25/19 Cholecalciferol (Vitamin D3) 2,000 unit PO DAILY 05/28/17 09/25/19 [Vitamin D] EPINEPHrine [Epipen 2-Michael] 0.3 mg IJ ONCE #1 auto.injct 08/03/18 09/25/19 Esomeprazole Magnesium [Nexium] 20 mg PO DAILY 09/25/19 09/25/19 Propafenone HCl [Propafenone HCl 225 mg PO BID 09/25/19 09/25/19 ER] Calcium Carbonate [Calcium] 600 mg PO 10/05/19 10/05/19 - Allergies Allergies/Adverse Reactions: Allergies Allergy/AdvReac Type Severity Reaction Status Date / Time bee venom protein (honey bee) Allergy Anaphylaxis Verified 10/05/19 17:42 grass pollen Allergy Anaphylaxis Verified 10/05/19 17:42 wheat Allergy Anaphylaxis Verified 10/05/19 17:42 Latex, Natural Rubber AdvReac Rash Verified 03/25/19 15:25 sulfamethoxazole AdvReac Hives Verified 10/05/19 17:42 [From Bactrim] trimethoprim [From Bactrim] AdvReac Hives Verified 03/25/19 15:25 - Social History Does the pt smoke?: No Smoking Status: Never smoker Does the pt drink ETOH?: No Does the pt have substance abuse?: No - Immunizations Immunizations are current?: Yes - POLST Patient has POLST: No PD ED PE NORMAL - Vitals Vital signs reviewed: Yes - General General: Alert and oriented X 3, No acute distress - Abdomen Abdomen: Soft, Non tender - Neuro Neuro: Alert and oriented X 3, Normal speech - Psych Psych: Normal mood, Normal affect Results - Vitals Vitals: Vital Signs - 24 hr 10/05/19 10/05/19 17:40 18:07 Temperature 37.1 C Heart Rate 58 L 77 Respiratory 18 18 Rate Blood Pressure 132/95 H 151/95 H O2 Saturation 100 98 Oxygen O2 Source Room air - Labs Labs: Laboratory Tests 10/05/19 10/05/19 10/05/19 18:00 18:00 18:00 WBC 9.4 RBC 4.49 Hgb 12.8 Hct 40.2 MCV 89.5 MCH 28.5 MCHC 31.8 L RDW 12.9 Plt Count 281 MPV 12.0 H Neut # (Auto) 6.1 Lymph # (Auto) 2.5 [place] # (Auto) 0.5 Eos # (Auto) 0.1 Baso # (Auto) 0.1 Absolute Nucleated RBC 0.00 Nucleated RBC % 0.0 Sodium 141 Potassium 4.1 Chloride 109 Carbon Dioxide 25 Anion Gap 7.0 BUN 14 Creatinine 1.0 Estimated GFR (MDRD) 65 L Glucose 106 H Calcium 8.9 Total Bilirubin 0.5 AST 18 ALT 14 Alkaline Phosphatase 54 Total Protein 6.9 Albumin 3.9 Globulin 3.0 Albumin/Globulin Ratio 1.3 Lipase 27 HCG, Quant 1.37 PD MEDICAL DECISION MAKING - ED course ED course: She presents with vaginal bleeding in early , however her test on the last visit was negative and serum hCG tonight is negative. Suspect her home test was false positive and she is now having a menses. Departure - Departure Disposition: 01 Home, Self Care Clinical Impression: Vagina bleeding Condition: Good Record reviewed to determine appropriate education?: Yes Instructions: ED Bleed Irregular Vaginal Discharge Date/Time: 10/05/19 19:03
[2019-10-05 18:08] VITALS: BP 151/95
[2019-10-05 18:21] LABS: BASOPHILS # (AUTO) 0.1 10^3/uL (0.0-0.1); BASOPHILS % (AUTO) 1.1 %; EOSINOPHILS # (AUTO) 0.1 10^3/uL (0.0-0.7); EOSINOPHILS % (AUTO) 1.5 %; HGB - HEMOGLOBIN 12.8 g/dL (12.0-16.0); LYMPHOCYTES # (AUTO) 2.5 10^3/uL (1.5-3.5); LYMPHOCYTES % (AUTO) 26.7 %; MEAN CORPUSCULAR HEMOGLOBIN 28.5 pg (27.0-31.0); MEAN CORPUSCULAR HGB CONC 31.8 g/dL (32.0-36.0); MEAN CORPUSCULAR VOLUME 89.5 fL (81.0-99.0); MONOCYTES # (AUTO) 0.5 10^3/uL (0.0-1.0); MONOCYTES % (AUTO) 5.4 %; NEUTROPHILS # (AUTO) 6.1 10^3/uL (1.5-6.6); PLT - PLATELET COUNT 281 10^3/uL (130-450); RED BLOOD COUNT 4.49 10^6/uL (4.20-5.40); RED CELL DISTRIBUTION WIDTH 12.9 % (12.0-15.0); WHITE BLOOD COUNT 9.4 x10^3/uL (4.8-10.8)
[2019-10-05 18:35] LABS: ALBUMIN 3.9 g/dL (3.2-5.5); ALBUMIN/GLOBULIN RATIO 1.3 (1.0-2.2); BILIRUBIN,TOTAL 0.5 mg/dL (0.2-1.0); CALCIUM 8.9 mg/dL (8.5-10.3); TOTAL PROTEIN 6.9 g/dL (6.7-8.2)
== END 2019-10-05 19:03 | disposition home or self-care (01) ==
LOC: ED 17:38
DX: N93.9 Abnormal uterine and vaginal bleeding, unspecified (principal); Z87.59 Personal history of other complications of pregnancy, childbirth and the puerperium; Z32.02 Encounter for pregnancy test, result negative
CPT/HCPCS: 36415; 80053; 83690; 84702; 85025; 99282; 99284

== ENCOUNTER 2019-11-05 19:02 | Emergency (ER) | payer OTHER ==
[2019-11-05 19:07] VITALS: BP 125/80
[2019-11-05] MEDS ORDERED: predniSONE 20 MG TABLET PO STA (19:29)
--- NOTE | 2019-11-05 19:29 | ED Physician Documentation ---
History of Present Illness - Stated complaint Stated Complaint: ALLERGIC REACTION - Chief complaint Chief Complaint: Allergic Rx - History obtained from History obtained from: Patient - History of Present Illness Timing: Today Pain level max: 0 Pain level now: 0 - Additonal information Additional information: 29-year-old female presents to the emergency department stating that she blew her nose, using a Kleenex and feels itching and a rash starting on the left side of her face. She has multiple allergies. Took Benadryl prior to arrival. No difficulty breathing, no tongue swelling. 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 : None HEENT: None Psych: None Musculoskeletal: None Derm: None - Past Surgical History Past Surgical History: Yes General: Appendectomy, Other Ortho: Other /HOME HEALTH BILLING SPECIALIST: LEEP (Cervical surgery), Other HEENT: Tonsil/Adenoidectomy - Present Medications Home Medications: Ambulatory Orders Medication Instructions Recorded Confirmed Fluticasone [Flonase] 1 spray NS DAILY 04/17/16 09/25/19 Cholecalciferol (Vitamin D3) 2,000 unit PO DAILY 05/28/17 09/25/19 [Vitamin D] EPINEPHrine [Epipen 2-Michael] 0.3 mg IJ ONCE #1 auto.injct 08/03/18 09/25/19 Esomeprazole Magnesium [Nexium] 20 mg PO DAILY 09/25/19 09/25/19 Propafenone HCl [Propafenone HCl 225 mg PO BID 09/25/19 09/25/19 ER] Calcium Carbonate [Calcium] 600 mg PO 10/05/19 10/05/19 - Allergies Allergies/Adverse Reactions: Allergies Allergy/AdvReac Type Severity Reaction Status Date / Time bee venom protein (honey bee) Allergy Anaphylaxis Verified 11/05/19 19:05 grass pollen Allergy Anaphylaxis Verified 11/05/19 19:05 wheat Allergy Anaphylaxis Verified 11/05/19 19:05 Latex, Natural Rubber AdvReac Rash Verified 11/05/19 19:05 sulfamethoxazole AdvReac Hives Verified 11/05/19 19:05 [From Bactrim] trimethoprim [From Bactrim] AdvReac Hives Verified 11/05/19 19:05 - Social History Does the pt smoke?: No Smoking Status: Never smoker Does the pt drink ETOH?: No Does the pt have substance abuse?: No - Immunizations Immunizations are current?: Yes - POLST Patient has POLST: No PD ED PE NORMAL - Vitals Vital signs reviewed: Yes - General General: Alert and oriented X 3, No acute distress - HEENT HEENT: PERRL, Ears normal, Moist mucous membranes, Pharynx benign, Other (No facial swelling. No visible rash. No angioedema) - Neck Neck: Supple, no meningeal sign - Cardiac Cardiac: RRR - Respiratory Respiratory: No respiratory distress, Clear bilaterally, Other (No stridor or wheezing) - Derm Derm: Warm and dry, No rash - Neuro Neuro: Alert and oriented X 3 - Psych Psych: Normal mood, Normal affect Results - Vitals Vitals: Vital Signs - 24 hr 11/05/19 19:05 Temperature 36.8 C Heart Rate 75 Respiratory 18 Rate Blood Pressure 125/80 O2 Saturation 100 Oxygen O2 Source Room air PD MEDICAL DECISION MAKING - ED course Complexity details: considered differential, d/w patient ED course: Patient with what appears to be a contact reaction to something, possibly on the Kleenex? She took Benadryl prior to arrival. We will give a dose of steroids here. Patient counseled regarding signs and symptoms for which I believe and urgent re-evaluation would be necessary. Patient with good understanding of and agreement to plan and is comfortable going home at this time This document was made in part using voice recognition software. While efforts are made to proofread this document, sound alike and grammatical errors may occur. Departure - Departure Disposition: 01 Home, Self Care Clinical Impression: Allergic reaction Qualifiers: Encounter type: initial encounter Qualified Code(s): T78.40XA - Allergy, unspecified, initial encounter Condition: Good Instructions: ED Allergic Reaction Local Other Follow-Up: Dylon Brooks MD [Physician No Access] - As Needed Comments: Return if you worsen. Follow-up with your doctor for further care. The cause of the allergic reaction is unclear today. Discharge Date/Time: 11/05/19 19:35
== END 2019-11-05 19:35 | disposition home or self-care (01) ==
LOC: ED 19:02
DX: T78.40XA Allergy, unspecified, initial encounter (principal); X58.XXXA Exposure to other specified factors, initial encounter
CPT/HCPCS: 99282; 99284; J7512

== ENCOUNTER 2019-12-09 20:26 | Emergency (ER) | payer BC, OTHER ==
[2019-12-09 20:48] LABS: BASOPHILS # (AUTO) 0.1 10^3/uL (0.0-0.1); BASOPHILS % (AUTO) 0.7 %; EOSINOPHILS # (AUTO) 0.1 10^3/uL (0.0-0.7); EOSINOPHILS % (AUTO) 0.8 %; HGB - HEMOGLOBIN 12.7 g/dL (12.0-16.0); LYMPHOCYTES % (AUTO) 29.3 %; MEAN CORPUSCULAR HEMOGLOBIN 29.4 pg (27.0-31.0); MEAN CORPUSCULAR HGB CONC 33.5 g/dL (32.0-36.0); MEAN CORPUSCULAR VOLUME 87.7 fL (81.0-99.0); MEAN PLATELET VOLUME 11.2 fL (7.9-10.8); MONOCYTES # (AUTO) 0.7 10^3/uL (0.0-1.0); MONOCYTES % (AUTO) 6.7 %; NEUTROPHILS # (AUTO) 6.3 10^3/uL (1.5-6.6); NEUTROPHILS % (AUTO) 62.2 %; PLT - PLATELET COUNT 273 10^3/uL (130-450); RED BLOOD COUNT 4.32 10^6/uL (4.20-5.40); RED CELL DISTRIBUTION WIDTH 12.9 % (12.0-15.0); WHITE BLOOD COUNT 10.1 x10^3/uL (4.8-10.8)
[2019-12-09 20:54] LABS: BILIRUBIN,URINE NEGATIVE (NEGATIVE); GLUCOSE, URINE (UA) NEGATIVE (NEGATIVE); KETONES,URINE (UA) NEGATIVE (NEGATIVE); LEUKOCYTE ESTERASE, URINE NEGATIVE (NEGATIVE); NITRITE,URINE NEGATIVE (NEGATIVE); OCCULT BLOOD,URINE NEGATIVE (NEGATIVE); PROTEIN,URINE NEGATIVE (NEGATIVE); UROBILINOGEN,URINE 0.2 (NORMAL) E.U./dL (NORMAL)
[2019-12-09 20:55] LABS: CLARITY,URINE CLEAR (CLEAR); HCG UR QUAL POSITIVE
--- NOTE | 2019-12-09 20:55 | ED Physician Documentation ---
PD HPI CHEST PAIN - Stated complaint Stated Complaint: CP - Chief complaint Chief Complaint: Cardiac - History obtained from History obtained from: Patient - History of Present Illness Timing - onset: Today (had feeling of lightheaded and flushed, with feeling of fast heart rate earlier. [place] c/w atrial fib she has had in the past. Feeling improved here. Having some mild pain in chest with movement. No change with eating. No cough, dyspnea, edema.) Timing - onset during: Light activity Timing - details: Abrupt onset, Now resolved (not feeling lightheaded, but still with mild chest pain feeling.). No: Still present Quality: Aching. No: Pressure, Tightness Location: Substernal, Epigastric Radiation: No: Neck, Back Improved by: Rest Worsened by: Movement. No: Inspiration, Eating, Palpation Associated symptoms: Shortness of air, Feeling faint / dizzy, Palpitations. No: Nausea, Vomiting, Cough Similar symptoms before: Diagnosis (had intermittent atrial fib in the past. Has had GERD as well, though feels different in the past.) Recently seen: Clinic (seen by SPANISH SPEAKING NANNY with normal U/S for IUP. Also saw Energy Infrastructure Engineer and was off Rhythmol due to . Not Rx beta roberto as yet.) Review of Systems Constitutional: denies: Fever, Chills Nose: denies: Rhinorrhea / runny nose, Congestion Throat: denies: Sore throat Cardiac: denies: Pedal edema, Calf pain Respiratory: denies: Dyspnea, Cough GI: reports: Nausea. 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: Endometriosis : None HEENT: None Psych: None Musculoskeletal: None Derm: None - Past Surgical History Past Surgical History: Yes General: Appendectomy, Other Ortho: Other /ENVIRONMENTAL SCIENCE PROFESSOR: LEEP (Cervical surgery), Other HEENT: Tonsil/Adenoidectomy - Present Medications Home Medications: Ambulatory Orders Medication Instructions Recorded Confirmed Fluticasone [Flonase] 1 spray NS DAILY 04/17/16 09/25/19 Cholecalciferol (Vitamin D3) 2,000 unit PO DAILY 05/28/17 09/25/19 [Vitamin D] EPINEPHrine [Epipen 2-Michael] 0.3 mg IJ ONCE #1 auto.injct 08/03/18 09/25/19 Esomeprazole Magnesium [Nexium] 20 mg PO DAILY 09/25/19 09/25/19 Propafenone HCl [Propafenone HCl 225 mg PO BID 09/25/19 09/25/19 ER] Calcium Carbonate [Calcium] 600 mg PO 10/05/19 10/05/19 Meclizine HCl [Motion Sickness 25 mg PO Q6H PRN #25 tablet 12/09/19 Relief] Metoprolol Tartrate [Lopressor] 12.5 mg PO DAILY #10 tablet 12/09/19 Naproxen 375 mg PO BID #20 tablet 12/09/19 Ondansetron Odt [Zofran] 4 mg TL Q6H PRN #20 tablet 12/09/19 Pyridoxine HCl (Vitamin B6) 25 mg PO BID #40 tablet 12/09/19 [Vitamin B-6] dexAMETHasone [Decadron] 4 mg PO DAILY #7 tablet 12/09/19 - Allergies Allergies/Adverse Reactions: Allergies Allergy/AdvReac Type Severity Reaction Status Date / Time bee venom protein (honey bee) Allergy Anaphylaxis Verified 12/09/19 20:32 grass pollen Allergy Anaphylaxis Verified 12/09/19 20:32 wheat Allergy Anaphylaxis Verified 12/09/19 20:32 adhesive AdvReac Rash Verified 12/09/19 20:32 Latex, Natural Rubber AdvReac Rash Verified 12/09/19 20:32 sulfamethoxazole AdvReac Hives Verified 12/09/19 20:32 [From Bactrim] trimethoprim [From Bactrim] AdvReac Hives Verified 12/09/19 20:32 - Social History Does the pt smoke?: No Smoking Status: Never smoker Does the pt drink ETOH?: No Does the pt have substance abuse?: No - Immunizations Immunizations are current?: Yes - POLST Patient has POLST: No PD ED PE NORMAL - Vitals Vital signs reviewed: Yes - General General: Alert and oriented X 3, No acute distress, Well developed/nourished - HEENT HEENT: Moist mucous membranes, Pharynx benign - Neck Neck: Supple, no meningeal sign, No adenopathy - Cardiac Cardiac: RRR, No murmur - Respiratory Respiratory: Clear bilaterally, Other (no chestwall tenderness. ) - Abdomen Abdomen: Normal bowel sounds, Soft, Non tender, Non distended - Derm Derm: Normal color, Warm and dry - Extremities Extremities: No tenderness to palpate, Normal ROM s pain, No edema, No calf tenderness / cord - Neuro Neuro: Alert and oriented X 3, No motor deficit, Normal speech Results - Vitals Vitals: Vital Signs - 24 hr 12/09/19 12/09/19 12/09/19 20:29 21:00 21:18 Temperature 36.5 C Heart Rate 58 L 71 Respiratory 17 16 16 Rate Blood Pressure 126/73 132/75 H O2 Saturation 100 100 12/09/19 12/09/19 12/09/19 22:01 22:15 22:38 Temperature Heart Rate 65 52 L Respiratory 16 17 17 Rate Blood Pressure 115/72 113/72 O2 Saturation 100 97 12/09/19 12/09/19 12/09/19 22:49 23:21 23:30 Temperature Heart Rate 55 L 55 L Respiratory 18 16 12 Rate Blood Pressure 120/67 O2 Saturation 100 100 Oxygen O2 Source Room air - EKG (time done) 20:20 Rate: Rate (enter#) (58) Rhythm: NSR Jessie: Normal Intervals: Normal [place] QRS: Normal Ischemia: Normal ST segments. No: ST elevation c/w ischemia, ST depression - Labs Labs: Laboratory Tests 12/09/19 12/09/19 12/09/19 20:39 20:39 20:39 WBC RBC Hgb Hct MCV MCH MCHC RDW Plt Count MPV Neut # (Auto) Lymph # (Auto) [place] # (Auto) Eos # (Auto) Baso # (Auto) Absolute Nucleated RBC Nucleated RBC % Sodium Potassium Chloride Carbon Dioxide Anion Gap BUN Creatinine Estimated GFR (MDRD) Glucose Calcium Magnesium 2.2 Total Bilirubin AST ALT Alkaline Phosphatase Troponin I High Sens Total Protein Albumin Globulin Albumin/Globulin Ratio Lipase TSH 1.33 Urine Color YELLOW Urine Clarity CLEAR Urine pH 6.0 Ur Specific [place] <=1.005 Urine Protein NEGATIVE Urine Glucose (UA) NEGATIVE Urine Ketones NEGATIVE Urine Occult Blood NEGATIVE Urine Nitrite NEGATIVE Urine Bilirubin NEGATIVE Urine Urobilinogen 0.2 (NORMAL) Ur Leukocyte Esterase NEGATIVE Ur Microscopic Review NOT INDICATED Urine Culture Comments NOT INDICATED Urine HCG, Qual POSITIVE 12/09/19 12/09/19 12/09/19 20:46 20:46 20:46 WBC 10.1 RBC 4.32 Hgb 12.7 Hct 37.9 MCV 87.7 MCH 29.4 MCHC 33.5 RDW 12.9 Plt Count 273 MPV 11.2 H Neut # (Auto) 6.3 Lymph # (Auto) 3.0 [place] # (Auto) 0.7 Eos # (Auto) 0.1 Baso # (Auto) 0.1 Absolute Nucleated RBC 0.00 Nucleated RBC % 0.0 Sodium 136 Potassium 3.4 L Chloride 102 Carbon Dioxide 24 Anion Gap 10.0 BUN 8 Creatinine 0.9 Estimated GFR (MDRD) 73 L Glucose 83 Calcium 8.7 Magnesium Total Bilirubin 0.4 AST 21 ALT 20 Alkaline Phosphatase 57 Troponin I High Sens 3.0 Total Protein 6.6 L Albumin 3.4 Globulin 3.2 Albumin/Globulin Ratio 1.1 Lipase 31 TSH Urine Color Urine Clarity Urine pH Ur Specific [place] Urine Protein Urine Glucose (UA) Urine Ketones Urine Occult Blood Urine Nitrite Urine Bilirubin Urine Urobilinogen Ur Leukocyte Esterase Ur Microscopic Review Urine Culture Comments Urine HCG, Qual PD MEDICAL DECISION MAKING - ED course Complexity details: reviewed results, re-evaluated patient (no change in discomfort with GI cocktail. Seems more likely musculoskeletal. ), considered differential (normal heart rhythm now. Symptoms could be c/w intermittent fib or fast heart rate. She says her OB and Cardiology had said she might need to be on beta blockers since off her Rhythmol due to . ), d/w patient Departure - Departure Disposition: 01 Home, Self Care Clinical Impression: Nausea, Dizziness Qualifiers: Weeks of gestation: 10 weeks Qualified Code(s): Z3A.10 - 10 weeks gestation of Chest pain Qualifiers: Chest pain type: unspecified Qualified Code(s): R07.9 - Chest pain, unspecified Condition: Stable Record reviewed to determine appropriate education?: Yes Instructions: ED Chest Pain Atypical Unkn Cause, ED Dizziness UKO Follow-Up: ROLANDO BROWN ARNP [Primary Care Provider] - Prescriptions: dexAMETHasone [Decadron] 4 mg PO DAILY #7 tablet Meclizine HCl [Motion Sickness Relief] 25 mg PO Q6H PRN #25 tablet PRN Reason: Vertigo Metoprolol Tartrate [Lopressor] 12.5 mg PO DAILY #10 tablet Naproxen 375 mg PO BID #20 tablet Ondansetron Odt [Zofran] 4 mg TL Q6H PRN #20 tablet PRN Reason: Nausea / Vomiting Pyridoxine HCl (Vitamin B6) [Vitamin B-6] 25 mg PO BID #40 tablet Comments: Continue current medications. Use Decadron daily for the next week. This can help with nausea and hopefully with any inner ear inflammation as well. Add meclizine every 6-8 hours if needed for dizziness or nausea. All you can still use these ondansetron for nausea as well as needed. Naproxen anti-inflammatory twice daily for the next 5 to 10 days to help with pains. Follow-up with your SPANISH SPEAKING NANNY and cardiology over the next few days. Call to talk with them. Return if worsening symptoms. Stay well-hydrated. Discharge Date/Time: 12/09/19 23:44
[2019-12-09 21:02] LABS: ALBUMIN 3.4 g/dL (3.2-5.5); ALBUMIN/GLOBULIN RATIO 1.1 (1.0-2.2); BILIRUBIN,TOTAL 0.4 mg/dL (0.2-1.0); CALCIUM 8.7 mg/dL (8.5-10.3); CREATININE 0.9 mg/dL (0.4-1.0); TOTAL PROTEIN 6.6 g/dL (6.7-8.2)
[2019-12-09] MEDS ORDERED: MAG HYDROX/AL HYDROX/SIMETH 30 ML UDC PO STA (21:31)
[2019-12-09] MEDS ORDERED: LIDOCAINE VISCOUS 2% 15 ML UDC MM STA (21:31)
[2019-12-09] MEDS ORDERED: METOPROLOL TARTRATE 50 MG TABLET PO STA (21:32)
[2019-12-09] MEDS ORDERED: METOPROLOL TARTRATE 25 MG TABLET ONE (21:41)
[2019-12-09] MEDS ORDERED: DEXAMETHASONE 10 MG/ML VIAL IVP STA (21:59)
[2019-12-09] MEDS ORDERED: DEXAMETHASONE 10 MG/ML VIAL PO STA (22:17)
[2019-12-09] MEDS ORDERED: CHERRY SYRUP 10 ML UDC PO ONE (22:17)
[2019-12-09] MEDS ORDERED: IBUPROFEN 600 MG TABLET PO STA (22:50)
[2019-12-09 23:39] VITALS: BP 120/67
== END 2019-12-09 23:44 | disposition home or self-care (01) ==
LOC: ED 20:26
DX: O99.89 Other specified diseases and conditions complicating pregnancy, childbirth and the puerperium (principal); R07.89 Other chest pain; R42 Dizziness and giddiness; R11.0 Nausea; Z3A.10 10 weeks gestation of pregnancy
CPT/HCPCS: 36415; 81003; 81025; 83690; 83735; 84484; 93005; 99284; 99285; A9270; 80053; 81001; 84443; 85025; 87086

== ENCOUNTER 2019-12-16 14:43 | Emergency (ER) | payer BC, OTHER ==
[2019-12-16 15:09] LABS: BASOPHILS # (AUTO) 0.1 10^3/uL (0.0-0.1); BASOPHILS % (AUTO) 0.6 %; EOSINOPHILS # (AUTO) 0.1 10^3/uL (0.0-0.7); EOSINOPHILS % (AUTO) 1.4 %; HGB - HEMOGLOBIN 13.2 g/dL (12.0-16.0); LYMPHOCYTES # (AUTO) 2.6 10^3/uL (1.5-3.5); LYMPHOCYTES % (AUTO) 24.9 %; MEAN CORPUSCULAR HEMOGLOBIN 29.5 pg (27.0-31.0); MEAN CORPUSCULAR HGB CONC 33.5 g/dL (32.0-36.0); MEAN CORPUSCULAR VOLUME 88.1 fL (81.0-99.0); MEAN PLATELET VOLUME 11.5 fL (7.9-10.8); MONOCYTES # (AUTO) 0.6 10^3/uL (0.0-1.0); NEUTROPHILS # (AUTO) 6.8 10^3/uL (1.5-6.6); NEUTROPHILS % (AUTO) 66.6 %; PLT - PLATELET COUNT 277 10^3/uL (130-450); RED BLOOD COUNT 4.47 10^6/uL (4.20-5.40); RED CELL DISTRIBUTION WIDTH 13.2 % (12.0-15.0); WHITE BLOOD COUNT 10.2 x10^3/uL (4.8-10.8)
[2019-12-16 15:21] LABS: BILIRUBIN,URINE NEGATIVE (NEGATIVE); GLUCOSE, URINE (UA) NEGATIVE (NEGATIVE); KETONES,URINE (UA) NEGATIVE (NEGATIVE); LEUKOCYTE ESTERASE, URINE NEGATIVE (NEGATIVE); NITRITE,URINE NEGATIVE (NEGATIVE); OCCULT BLOOD,URINE NEGATIVE (NEGATIVE); PH,URINE 6.5 PH (5.0-7.5); PROTEIN,URINE NEGATIVE (NEGATIVE); UROBILINOGEN,URINE 0.2 (NORMAL) E.U./dL (NORMAL)
[2019-12-16 15:22] LABS: CLARITY,URINE CLEAR (CLEAR)
[2019-12-16 15:22] LABS: ALBUMIN 3.5 g/dL (3.2-5.5); ALBUMIN/GLOBULIN RATIO 1.1 (1.0-2.2); BILIRUBIN,TOTAL 0.2 mg/dL (0.2-1.0); CREATININE 0.7 mg/dL (0.4-1.0); TOTAL PROTEIN 6.7 g/dL (6.7-8.2)
--- NOTE | 2019-12-16 16:57 | ED Physician Documentation ---
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 She is coming to the emergency department for evaluation. 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 : None HEENT: None Psych: None Musculoskeletal: None Derm: None - Past Surgical History Past Surgical History: Yes General: Appendectomy, Other Ortho: Other /SAIL MAKER: LEEP (Cervical surgery), Other HEENT: Tonsil/Adenoidectomy - Present Medications Home Medications: Ambulatory Orders Medication Instructions Recorded Confirmed Fluticasone [Flonase] 1 spray NS DAILY 04/17/16 09/25/19 Cholecalciferol (Vitamin D3) 2,000 unit PO DAILY 05/28/17 09/25/19 [Vitamin D] EPINEPHrine [Epipen 2-Michael] 0.3 mg IJ ONCE #1 auto.injct 08/03/18 09/25/19 Esomeprazole Magnesium [Nexium] 20 mg PO DAILY 09/25/19 09/25/19 Propafenone HCl [Propafenone HCl 225 mg PO BID 09/25/19 09/25/19 ER] Calcium Carbonate [Calcium] 600 mg PO 10/05/19 10/05/19 Meclizine HCl [Motion Sickness 25 mg PO Q6H PRN #25 tablet 12/09/19 Relief] Metoprolol Tartrate [Lopressor] 12.5 mg PO DAILY #10 tablet 12/09/19 Naproxen 375 mg PO BID #20 tablet 12/09/19 Ondansetron Odt [Zofran] 4 mg TL Q6H PRN #20 tablet 12/09/19 Pyridoxine HCl (Vitamin B6) 25 mg PO BID #40 tablet 12/09/19 [Vitamin B-6] dexAMETHasone [Decadron] 4 mg PO DAILY #7 tablet 12/09/19 - Allergies Allergies/Adverse Reactions: Allergies Allergy/AdvReac Type Severity Reaction Status Date / Time bee venom protein (honey bee) Allergy Anaphylaxis Verified 12/16/19 14:51 grass pollen Allergy Anaphylaxis Verified 12/16/19 14:51 wheat Allergy Anaphylaxis Verified 12/16/19 14:51 adhesive AdvReac Rash Verified 12/16/19 14:51 Latex, Natural Rubber AdvReac Rash Verified 12/16/19 14:51 sulfamethoxazole AdvReac Hives Verified 12/16/19 14:51 [From Bactrim] trimethoprim [From Bactrim] AdvReac Hives Verified 12/16/19 14:51 - Social History Does the pt smoke?: No Smoking Status: Never smoker Does the pt drink ETOH?: No Does the pt have substance abuse?: No - Immunizations Immunizations are current?: Yes - POLST Patient has POLST: No PD ED PE NORMAL - Vitals Vital signs reviewed: Yes (hypertnesive ) - General General: Alert and oriented X 3, No acute distress, Well developed/nourished - HEENT HEENT: Atraumatic, PERRL, EOMI - Neck Neck: Supple, no meningeal sign, No bony TTP - Cardiac Cardiac: RRR, No murmur - Respiratory Respiratory: No respiratory distress, Clear bilaterally - Abdomen Abdomen: Normal bowel sounds, Soft, Non distended, No organomegaly, Other (mild suprapubic tenderness) - Back Back: No CVA TTP, No spinal TTP - Derm Derm: Normal color, Warm and dry, No rash - Extremities Extremities: No deformity, No edema - Neuro Neuro: Alert and oriented X 3, cargo worker 2-12 intact, No motor deficit, No sensory deficit, Normal speech Eye Opening: Spontaneous Motor: Obeys Commands Verbal: Oriented GCS Score: 15 - Psych Psych: Normal mood, Normal affect Results - Vitals Vitals: Vital Signs - 24 hr 12/16/19 12/16/19 14:47 17:51 Temperature 36.2 C L 36.6 C Heart Rate 75 76 Respiratory 16 16 Rate Blood Pressure 141/93 H 112/77 O2 Saturation 99 99 Oxygen O2 Source Room air - Labs Labs: Laboratory Tests 12/16/19 12/16/19 12/16/19 14:55 15:02 15:02 WBC 10.2 RBC 4.47 Hgb 13.2 Hct 39.4 MCV 88.1 MCH 29.5 MCHC 33.5 RDW 13.2 Plt Count 277 MPV 11.5 H Neut # (Auto) 6.8 H Lymph # (Auto) 2.6 [place] # (Auto) 0.6 Eos # (Auto) 0.1 Baso # (Auto) 0.1 Absolute Nucleated RBC 0.00 Nucleated RBC % 0.0 Sodium 136 Potassium 3.4 L Chloride 102 Carbon Dioxide 22 Anion Gap 12.0 BUN 10 Creatinine 0.7 Estimated GFR (MDRD) 98 Glucose 106 H Calcium 9.0 Total Bilirubin 0.2 AST 18 ALT 19 Alkaline Phosphatase 56 Total Protein 6.7 Albumin 3.5 Globulin 3.2 Albumin/Globulin Ratio 1.1 Lipase 29 HCG, Quant Urine Color YELLOW Urine Clarity CLEAR Urine pH 6.5 Ur Specific [place] 1.010 Urine Protein NEGATIVE Urine Glucose (UA) NEGATIVE Urine Ketones NEGATIVE Urine Occult Blood NEGATIVE Urine Nitrite NEGATIVE Urine Bilirubin NEGATIVE Urine Urobilinogen 0.2 (NORMAL) Ur Leukocyte Esterase NEGATIVE Ur Microscopic Review NOT INDICATED Urine Culture Comments NOT INDICATED Blood Type 12/16/19 12/16/19 15:02 15:02 WBC RBC Hgb Hct MCV MCH MCHC RDW Plt Count MPV Neut # (Auto) Lymph # (Auto) [place] # (Auto) Eos # (Auto) Baso # (Auto) Absolute Nucleated RBC Nucleated RBC % Sodium Potassium Chloride Carbon Dioxide Anion Gap BUN Creatinine Estimated GFR (MDRD) Glucose Calcium Total Bilirubin AST ALT Alkaline Phosphatase Total Protein Albumin Globulin Albumin/Globulin Ratio Lipase HCG, Quant 728941.00 Urine Color Urine Clarity Urine pH Ur Specific [place] Urine Protein Urine Glucose (UA) Urine Ketones Urine Occult Blood Urine Nitrite Urine Bilirubin Urine Urobilinogen Ur Leukocyte Esterase Ur Microscopic Review Urine Culture Comments Blood Type O POSITIVE - Rads (name of study) u/s ob Radiology: Prelim report reviewed (Impression: 1. Single living intrauterine . 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 There is a small lewis-gestational bleed. She is at risk for miscarriage. Departure - Departure Disposition: 01 Home, Self Care Clinical Impression: Threatened miscarriage in early Condition: Stable Instructions: ED Miscarriage Poss Follow-Up: ROLANDO BROWN ARNP [Primary Care Provider] - Discharge Date/Time: 12/16/19 18:03
--- NOTE | 2019-12-16 17:01 | Ultrasound Report ---
Reason: pelvic pain, spotting Procedure Date: 12/16/2019 Accession Number: [id number] / [id number] Procedure: US - OB First Trimester CPT Code: Final Report FULL RESULT: EXAM: FIRST TRIMESTER OBSTETRIC ULTRASOUND (Less than 11 weeks) ULTRASOUND OB TRANSVAGINAL EXAM DATE: 12/16/2019 04:11 PM. CLINICAL HISTORY: Pelvic pain, spotting. COMPARISONS: None. TECHNIQUE: Transabdominal and transvaginal ultrasound examination with static image documentation. CLINICAL DATES: EGA 10 weeks 5 days with GEETA 07/08/2020 according to the patient. ASSESSMENT: Gestational Sac: Single intrauterine. Mean gestational sac diameter: 48 mm = EGA 10 weeks 3 days. Embryo: CRL (crown-rump length) 40 mm = EGA 10 weeks 6 days, GEETA 07/07/2020. Cardiac activity: 166 beats per minute. Yolk sac: 6 mm. Amniotic fluid: Not accurately assessed at this gestational age. Early placenta: Posterior. Low lying placenta. Other: Small lewis-gestational bleed seen at the inferior aspect measuring 1.3 x 1.3 cm. MATERNAL STRUCTURES: Uterus: Anteverted. Unremarkable. Cervix: Closed. Right Ovary/Adnexa: The ovary measures 2.6 x 2.4 x 3.1 cm, volume 10.2 cc. Unremarkable. Left Ovary/Adnexa: The ovary measures 2.4 x 1.5 x 1.9 cm, volume 3.4 cc. Unremarkable. Free Fluid: None. Limited visualization of the bilateral adnexal regions. IMPRESSION: 1. Single living intrauterine . Embryo: CRL (crown-rump length) 40 mm = EGA 10 weeks 6 days, GEETA 07/07/2020, concordant with dates. 2. Small lewis-gestational bleed seen at the inferior aspect measuring 1.3 x 1.3 cm. 3. See above. RADIA
[2019-12-16 17:51] VITALS: BP 112/77
== END 2019-12-16 18:03 | disposition home or self-care (01) ==
LOC: ED 14:43
DX: O20.0 Threatened abortion (principal); O09.291 Supervision of pregnancy with other poor reproductive or obstetric history, first trimester; Z3A.10 10 weeks gestation of pregnancy
CPT/HCPCS: 36415; 76801; 76817; 80053; 81001; 81003; 83690; 84702; 85025; 86900; 86901; 87086; 99284

== ENCOUNTER 2019-12-24 16:39 | Emergency (ER) | payer BC, OTHER ==
[2019-12-24 17:18] LABS: BILIRUBIN,URINE NEGATIVE (NEGATIVE); GLUCOSE, URINE (UA) NEGATIVE (NEGATIVE); KETONES,URINE (UA) 40 mg/dL (NEGATIVE); LEUKOCYTE ESTERASE, URINE NEGATIVE (NEGATIVE); NITRITE,URINE NEGATIVE (NEGATIVE); OCCULT BLOOD,URINE NEGATIVE (NEGATIVE); PROTEIN,URINE NEGATIVE (NEGATIVE); UROBILINOGEN,URINE 0.2 (NORMAL) E.U./dL (NORMAL)
[2019-12-24 17:20] LABS: CLARITY,URINE HAZY (CLEAR)
[2019-12-24 17:37] LABS: BACTERIA,URINE Rare /HPF (None Seen); RBC,URINE 0-5 /HPF (0-5); SQUAMOUS EPITHELIAL CELL,UR FEW Squamous (<= Few)
[2019-12-24 17:57] LABS: BASOPHILS % (AUTO) 0.2 %; EOSINOPHILS % (AUTO) 0.3 %; HGB - HEMOGLOBIN 13.3 g/dL (12.0-16.0); LYMPHOCYTES # (AUTO) 0.6 10^3/uL (1.5-3.5); LYMPHOCYTES % (AUTO) 6.5 %; MEAN CORPUSCULAR HEMOGLOBIN 29.6 pg (27.0-31.0); MEAN CORPUSCULAR HGB CONC 33.8 g/dL (32.0-36.0); MEAN CORPUSCULAR VOLUME 87.8 fL (81.0-99.0); MONOCYTES # (AUTO) 0.3 10^3/uL (0.0-1.0); MONOCYTES % (AUTO) 2.8 %; NEUTROPHILS # (AUTO) 7.9 10^3/uL (1.5-6.6); NEUTROPHILS % (AUTO) 89.7 %; PLT - PLATELET COUNT 239 10^3/uL (130-450); RED BLOOD COUNT 4.49 10^6/uL (4.20-5.40); RED CELL DISTRIBUTION WIDTH 13.1 % (12.0-15.0); WHITE BLOOD COUNT 8.8 x10^3/uL (4.8-10.8)
[2019-12-24] MEDS ORDERED: SODIUM CHLORIDE 0.9% 2,000 ML IV ONE (18:06)
[2019-12-24] MEDS ORDERED: METOCLOPRAMIDE 10 MG/2 ML VIAL IVP STA (18:07)
--- NOTE | 2019-12-24 18:11 | ED Physician Documentation ---
History of Present Illness - Stated complaint Stated Complaint: FEVER/CRAMPING/VOMITING - Chief complaint Chief Complaint: General - History obtained from History obtained from: Patient, Family - History of Present Illness Timing: Today Pain level max: 3 Pain level now: 2 - Additonal information Additional information: 29-year-old female states that she is approximately 13 weeks . She states that she had nausea and vomiting this morning. No vaginal bleeding. Occasional low back cramping. Took Zofran without relief. She states that her OB told her to come in for evaluation. No recent travel. No recent antibiotics. Subjective fevers at home. Worse with eating and drinking. Nothing makes it better. She spent all day yesterday in [place]. Review of Systems Ten Systems: 10 systems reviewed and negative Constitutional: reports: Fever. 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: Endometriosis : None HEENT: None Psych: None Musculoskeletal: None Derm: None - Past Surgical History Past Surgical History: Yes General: Appendectomy, Other Ortho: Other /FILTER TENDER JELLY: LEEP (Cervical surgery), Other HEENT: Tonsil/Adenoidectomy - Present Medications Home Medications: Ambulatory Orders Medication Instructions Recorded Confirmed Fluticasone [Flonase] 1 spray NS DAILY 04/17/16 09/25/19 Cholecalciferol (Vitamin D3) 2,000 unit PO DAILY 05/28/17 09/25/19 [Vitamin D] EPINEPHrine [Epipen 2-Michael] 0.3 mg IJ ONCE #1 auto.injct 08/03/18 09/25/19 Esomeprazole Magnesium [Nexium] 20 mg PO DAILY 09/25/19 09/25/19 Propafenone HCl [Propafenone HCl 225 mg PO BID 09/25/19 09/25/19 ER] Calcium Carbonate [Calcium] 600 mg PO 10/05/19 10/05/19 Meclizine HCl [Motion Sickness 25 mg PO Q6H PRN #25 tablet 01/21/20 Relief] Metoprolol Tartrate [Lopressor] 12.5 mg PO DAILY #10 tablet 12/09/19 Naproxen 375 mg PO BID #20 tablet 12/09/19 Ondansetron Odt [Zofran] 4 mg TL Q6H PRN #20 tablet 12/09/19 Pyridoxine HCl (Vitamin B6) 25 mg PO BID #40 tablet 12/09/19 [Vitamin B-6] dexAMETHasone [Decadron] 4 mg PO DAILY #7 tablet 12/09/19 Metoclopramide [Reglan] 10 mg PO Q6H PRN #20 tablet 12/24/19 - Allergies Allergies/Adverse Reactions: Allergies Allergy/AdvReac Type Severity Reaction Status Date / Time bee venom protein (honey bee) Allergy Anaphylaxis Verified 12/16/19 14:51 grass pollen Allergy Anaphylaxis Verified 12/16/19 14:51 wheat Allergy Anaphylaxis Verified 12/16/19 14:51 adhesive AdvReac Rash Verified 12/16/19 14:51 Latex, Natural Rubber AdvReac Rash Verified 12/16/19 14:51 sulfamethoxazole AdvReac Hives Verified 12/16/19 14:51 [From Bactrim] trimethoprim [From Bactrim] AdvReac Hives Verified 12/16/19 14:51 - Social History Does the pt smoke?: No Smoking Status: Never smoker Does the pt drink ETOH?: No Does the pt have substance abuse?: No - Immunizations Immunizations are current?: Yes - POLST Patient has POLST: No PD ED PE NORMAL - Vitals Vital signs reviewed: Yes - General General: Alert and oriented X 3, No acute distress - HEENT HEENT: PERRL, Ears normal, Moist mucous membranes, Pharynx benign - Neck Neck: Supple, no meningeal sign, No adenopathy - Cardiac Cardiac: RRR - Respiratory Respiratory: No respiratory distress, Clear bilaterally - Abdomen Abdomen: Soft, Non tender, Non distended - Back Back: No CVA TTP, No spinal TTP - Derm Derm: Warm and dry - Extremities Extremities: No edema - Neuro Neuro: Alert and oriented X 3 - Psych Psych: Normal mood, Normal affect Results - Vitals Vitals: Vital Signs - 24 hr 12/24/19 12/24/19 12/24/19 16:47 18:44 19:36 Temperature 37.6 C H Heart Rate 121 H 103 H 96 Respiratory 17 18 18 Rate Blood Pressure 114/69 126/67 111/61 O2 Saturation 98 96 95 Oxygen O2 Source Room air - Labs Labs: Laboratory Tests 12/24/19 12/24/19 12/24/19 17:00 17:53 17:53 WBC 8.8 RBC 4.49 Hgb 13.3 Hct 39.4 MCV 87.8 MCH 29.6 MCHC 33.8 RDW 13.1 Plt Count 239 MPV 11.0 H Neut # (Auto) 7.9 H Lymph # (Auto) 0.6 L [place] # (Auto) 0.3 Eos # (Auto) 0.0 Baso # (Auto) 0.0 Absolute Nucleated RBC 0.00 Nucleated RBC % 0.0 Sodium 137 Potassium 3.7 Chloride 103 Carbon Dioxide 22 Anion Gap 12.0 BUN 10 Creatinine 0.7 Estimated GFR (MDRD) 98 Glucose 109 H Calcium 8.6 Total Bilirubin 0.5 AST 18 ALT 16 Alkaline Phosphatase 48 Total Protein 6.3 L Albumin 3.2 Globulin 3.1 Albumin/Globulin Ratio 1.0 Lipase 20 L HCG, Quant Urine Color YELLOW Urine Clarity HAZY Urine pH 6.0 Ur Specific [place] 1.025 Urine Protein NEGATIVE Urine Glucose (UA) NEGATIVE Urine Ketones 40 H Urine Occult Blood NEGATIVE Urine Nitrite NEGATIVE Urine Bilirubin NEGATIVE Urine Urobilinogen 0.2 (NORMAL) Ur Leukocyte Esterase NEGATIVE Urine RBC 0-5 Urine WBC 0-3 Ur Squamous Epith Cells FEW Squamous Urine Bacteria Rare Ur Microscopic Review INDICATED Urine Culture Comments NOT INDICATED Influenza A (Rapid) Influenza B (Rapid) 12/24/19 12/24/19 17:53 18:00 WBC RBC Hgb Hct MCV MCH MCHC RDW Plt Count MPV Neut # (Auto) Lymph # (Auto) [place] # (Auto) Eos # (Auto) Baso # (Auto) Absolute Nucleated RBC Nucleated RBC % Sodium Potassium Chloride Carbon Dioxide Anion Gap BUN Creatinine Estimated GFR (MDRD) Glucose Calcium Total Bilirubin AST ALT Alkaline Phosphatase Total Protein Albumin Globulin Albumin/Globulin Ratio Lipase HCG, Quant 30937.00 Urine Color Urine Clarity Urine pH Ur Specific [place] Urine Protein Urine Glucose (UA) Urine Ketones Urine Occult Blood Urine Nitrite Urine Bilirubin Urine Urobilinogen Ur Leukocyte Esterase Urine RBC Urine WBC Ur Squamous Epith Cells Urine Bacteria Ur Microscopic Review Urine Culture Comments Influenza A (Rapid) Negative Influenza B (Rapid) Negative PD MEDICAL DECISION MAKING - ED course Complexity details: reviewed old records, reviewed results, re-evaluated patient, considered differential, d/w patient, d/w family ED course: Bedside ultrasound reveals an intrauterine with a heart rate of 171 bpm. Images were shown to the patient. movement present. Patient feels much better after IV fluids and Reglan. Likely viral syndrome. Tolerating p.o. without difficulty. We will have her follow-up with her doctor for further care. Abdomen is soft, nontender nondistended on serial exam. Patient counseled regarding signs and symptoms for which I believe and urgent re-evaluation would be necessary. Patient with good understanding of and agreement to plan and is comfortable going home at this time This document was made in part using voice recognition software. While efforts are made to proofread this document, sound alike and grammatical errors may occur. Departure - Departure Disposition: 01 Home, Self Care Clinical Impression: Viral syndrome Condition: Good Instructions: ED Viral Syndrome Follow-Up: ROLANDO BROWN ARNP [Primary Care Provider] - Within 3 Days Prescriptions: Metoclopramide [Reglan] 10 mg PO Q6H PRN #20 tablet PRN Reason: Nausea / Vomiting Comments: Drink plenty of fluids. Return if you worsen. Discharge Date/Time: 12/24/19 19:36
[2019-12-24 18:12] LABS: ALBUMIN 3.2 g/dL (3.2-5.5); BILIRUBIN,TOTAL 0.5 mg/dL (0.2-1.0); CALCIUM 8.6 mg/dL (8.5-10.3); CREATININE 0.7 mg/dL (0.4-1.0); TOTAL PROTEIN 6.3 g/dL (6.7-8.2)
[2019-12-24] MEDS ORDERED: ACETAMINOPHEN 325 MG TABLET PO STA (18:12)
[2019-12-24 19:37] VITALS: BP 111/61
== END 2019-12-24 19:36 | disposition home or self-care (01) ==
LOC: ED 16:39
DX: O98.511 Other viral diseases complicating pregnancy, first trimester (principal); B34.9 Viral infection, unspecified; Z3A.13 13 weeks gestation of pregnancy
CPT/HCPCS: 36415; 80053; 81001; 83690; 84702; 85025; 87275; 87276; 96374; 99283; 99284; A9270; J2765; 81003; 87086

== ENCOUNTER 2020-01-03 21:38 | Emergency (ER) | payer BC, OTHER ==
--- NOTE | 2020-01-03 21:54 | ED Physician Documentation ---
History of Present Illness - Stated complaint Stated Complaint: BLEED/CRAMPING - Chief complaint Chief Complaint: Abd Pain - History obtained from History obtained from: Patient (The patient is a 29-year-old female who states that she is approximately 14 weeks she started having vaginal cramping without bleeding today. She reports she is a G7, P0 at 14 weeks by last menstrual period.She reports her blood type is O+.She denies any dysuria or hematuria or flank pain or any fevers. She has had 3 previous D&Cs from 3 of her other miscarriages. she has had a total of 6 miscarriages. she is not on any fertility treatment she is followed by a high school biology teacher specialist.) Review of Systems Constitutional: reports: Reviewed and negative Eyes: reports: Reviewed and negative Ears: reports: Reviewed and negative Nose: reports: Reviewed and negative Throat: reports: Reviewed and negative Cardiac: reports: Reviewed and negative Respiratory: reports: Reviewed and negative GI: reports: Reviewed and negative : reports: Vaginal bleeding Skin: reports: Reviewed and negative Musculoskeletal: reports: Reviewed and negative Neurologic: reports: Reviewed and negative Psychiatric: reports: Reviewed and negative Endocrine: reports: Reviewed and negative Immunocompromised: reports: Reviewed and negative PD PAST MEDICAL HISTORY - Past Medical History Past Medical History: Yes Cardiovascular: Atrial fibrillation, Other Respiratory: None Neuro: None Endocrine/Autoimmune: None GI: None 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 : None HEENT: None Psych: None Musculoskeletal: None Derm: None - Past Surgical History Past Surgical History: Yes General: Appendectomy, Other Ortho: Other /TRANSFORMATION COACH: LEEP (Cervical surgery), Other HEENT: Tonsil/Adenoidectomy - Present Medications Home Medications: Ambulatory Orders Medication Instructions Recorded Confirmed Fluticasone [Flonase] 1 spray NS DAILY 04/17/16 09/25/19 Cholecalciferol (Vitamin D3) 2,000 unit PO DAILY 05/28/17 09/25/19 [Vitamin D] EPINEPHrine [Epipen 2-Michael] 0.3 mg IJ ONCE #1 auto.injct 08/03/18 09/25/19 Esomeprazole Magnesium [Nexium] 20 mg PO DAILY 09/25/19 09/25/19 Propafenone HCl [Propafenone HCl 225 mg PO BID 09/25/19 09/25/19 ER] Calcium Carbonate [Calcium] 600 mg PO 10/05/19 10/05/19 Meclizine HCl [Motion Sickness 25 mg PO Q6H PRN #25 tablet 12/09/19 Relief] Metoprolol Tartrate [Lopressor] 12.5 mg PO DAILY #10 tablet 12/09/19 Naproxen 375 mg PO BID #20 tablet 12/09/19 Ondansetron Odt [Zofran] 4 mg TL Q6H PRN #20 tablet 12/09/19 Pyridoxine HCl (Vitamin B6) 25 mg PO BID #40 tablet 12/09/19 [Vitamin B-6] dexAMETHasone [Decadron] 4 mg PO DAILY #7 tablet 12/09/19 Metoclopramide [Reglan] 10 mg PO Q6H PRN #20 tablet 12/24/19 - Allergies Allergies/Adverse Reactions: Allergies Allergy/AdvReac Type Severity Reaction Status Date / Time bee venom protein (honey bee) Allergy Anaphylaxis Verified 01/03/20 21:44 grass pollen Allergy Anaphylaxis Verified 01/03/20 21:44 wheat Allergy Anaphylaxis Verified 01/03/20 21:44 adhesive AdvReac Rash Verified 01/03/20 21:44 Latex, Natural Rubber AdvReac Rash Verified 01/03/20 21:44 sulfamethoxazole AdvReac Hives Verified 01/03/20 21:44 [From Bactrim] trimethoprim [From Bactrim] AdvReac Hives Verified 01/03/20 21:44 - Social History Does the pt smoke?: No Smoking Status: Never smoker Does the pt drink ETOH?: No Does the pt have substance abuse?: No - Immunizations Immunizations are current?: Yes - POLST Patient has POLST: No PD ED PE NORMAL - Vitals Vital signs reviewed: Yes - General General: Alert and oriented X 3, No acute distress - HEENT HEENT: PERRL - Neck Neck: Supple, no meningeal sign - Cardiac Cardiac: RRR, No murmur - Respiratory Respiratory: No respiratory distress, Clear bilaterally - Abdomen Abdomen: Normal bowel sounds, Soft, Non tender, Non distended - Female Female : Deferred - Rectal Rectal: Deferred - Derm Derm: Warm and dry - Extremities Extremities: No deformity - Neuro Neuro: Alert and oriented X 3 - Psych Psych: Normal mood, Normal affect Results - Vitals Vitals: Vital Signs - 24 hr 01/03/20 01/04/20 21:40 00:23 Temperature 37.1 C 37.1 C Heart Rate 70 50 L Respiratory 18 18 Rate Blood Pressure 121/64 115/60 O2 Saturation 100 100 Oxygen O2 Source Room air - Labs Labs: Laboratory Tests 01/03/20 01/03/20 01/03/20 21:55 22:15 22:15 WBC 9.9 RBC 4.20 Hgb 12.4 Hct 37.4 MCV 89.0 MCH 29.5 MCHC 33.2 RDW 13.1 Plt Count 287 MPV 11.1 H Neut # (Auto) 5.9 Lymph # (Auto) 3.0 [place] # (Auto) 0.7 Eos # (Auto) 0.2 Baso # (Auto) 0.1 Absolute Nucleated RBC 0.00 Nucleated RBC % 0.0 Sodium 139 Potassium 3.6 Chloride 105 Carbon Dioxide 25 Anion Gap 9.0 BUN 8 Creatinine 0.7 Estimated GFR (MDRD) 98 Glucose 81 Calcium 9.0 Total Bilirubin 0.3 AST 19 ALT 25 Alkaline Phosphatase 49 Total Protein 6.1 L Albumin 3.2 Globulin 2.9 Albumin/Globulin Ratio 1.1 Lipase 37 HCG, Quant Urine Color YELLOW Urine Clarity CLEAR Urine pH 6.5 Ur Specific [place] <=1.005 Urine Protein NEGATIVE Urine Glucose (UA) NEGATIVE Urine Ketones NEGATIVE Urine Occult Blood NEGATIVE Urine Nitrite NEGATIVE Urine Bilirubin NEGATIVE Urine Urobilinogen 0.2 (NORMAL) Ur Leukocyte Esterase NEGATIVE Ur Microscopic Review NOT INDICATED Urine Culture Comments NOT INDICATED 01/03/20 22:15 WBC RBC Hgb Hct MCV MCH MCHC RDW Plt Count MPV Neut # (Auto) Lymph # (Auto) [place] # (Auto) Eos # (Auto) Baso # (Auto) Absolute Nucleated RBC Nucleated RBC % Sodium Potassium Chloride Carbon Dioxide Anion Gap BUN Creatinine Estimated GFR (MDRD) Glucose Calcium Total Bilirubin AST ALT Alkaline Phosphatase Total Protein Albumin Globulin Albumin/Globulin Ratio Lipase HCG, Quant 73619.00 Urine Color Urine Clarity Urine pH Ur Specific [place] Urine Protein Urine Glucose (UA) Urine Ketones Urine Occult Blood Urine Nitrite Urine Bilirubin Urine Urobilinogen Ur Leukocyte Esterase Ur Microscopic Review Urine Culture Comments PD MEDICAL DECISION MAKING - ED course Complexity details: other (ultrasound is reassuring shows a single live IUP at 13 weeks 5 days. patient and updated. will have close f/u next week with OB provider, return to ed w any concerns. ) Departure - Departure Disposition: 01 Home, Self Care Clinical Impression: , high-risk Qualifiers: Trimester: second trimester Qualified Code(s): O09.92 - Supervision of high risk , unspecified, second trimester Qualifiers: Weeks of gestation: 13 weeks Qualified Code(s): Z3A.13 - 13 weeks gestation of Condition: Good Instructions: Care Follow-Up: ROLANDO BROWN ARNP [Primary Care Provider] - Comments: follow up with your OB provider this week. Discharge Date/Time: 01/04/20 01:04
[2020-01-03 22:03] LABS: BILIRUBIN,URINE NEGATIVE (NEGATIVE); GLUCOSE, URINE (UA) NEGATIVE (NEGATIVE); KETONES,URINE (UA) NEGATIVE (NEGATIVE); LEUKOCYTE ESTERASE, URINE NEGATIVE (NEGATIVE); NITRITE,URINE NEGATIVE (NEGATIVE); OCCULT BLOOD,URINE NEGATIVE (NEGATIVE); PH,URINE 6.5 PH (5.0-7.5); PROTEIN,URINE NEGATIVE (NEGATIVE); UROBILINOGEN,URINE 0.2 (NORMAL) E.U./dL (NORMAL)
[2020-01-03 22:05] LABS: CLARITY,URINE CLEAR (CLEAR)
[2020-01-03] MEDS ORDERED: fentaNYL 100 MCG/2 ML VIAL IVP STA (22:20)
[2020-01-03] MEDS ORDERED: ONDANSETRON 4 MG/2 ML VIAL IVP STA (22:20)
[2020-01-03 22:29] LABS: BASOPHILS # (AUTO) 0.1 10^3/uL (0.0-0.1); BASOPHILS % (AUTO) 0.6 %; EOSINOPHILS # (AUTO) 0.2 10^3/uL (0.0-0.7); EOSINOPHILS % (AUTO) 1.5 %; HGB - HEMOGLOBIN 12.4 g/dL (12.0-16.0); LYMPHOCYTES % (AUTO) 30.7 %; MEAN CORPUSCULAR HEMOGLOBIN 29.5 pg (27.0-31.0); MEAN CORPUSCULAR HGB CONC 33.2 g/dL (32.0-36.0); MEAN PLATELET VOLUME 11.1 fL (7.9-10.8); MONOCYTES # (AUTO) 0.7 10^3/uL (0.0-1.0); MONOCYTES % (AUTO) 7.1 %; NEUTROPHILS # (AUTO) 5.9 10^3/uL (1.5-6.6); NEUTROPHILS % (AUTO) 59.3 %; PLT - PLATELET COUNT 287 10^3/uL (130-450); RED CELL DISTRIBUTION WIDTH 13.1 % (12.0-15.0); WHITE BLOOD COUNT 9.9 x10^3/uL (4.8-10.8)
[2020-01-03 22:46] LABS: ALBUMIN 3.2 g/dL (3.2-5.5); ALBUMIN/GLOBULIN RATIO 1.1 (1.0-2.2); BILIRUBIN,TOTAL 0.3 mg/dL (0.2-1.0); CREATININE 0.7 mg/dL (0.4-1.0); TOTAL PROTEIN 6.1 g/dL (6.7-8.2)
--- NOTE | 2020-01-03 23:56 | Ultrasound Report ---
Reason: 14 weeks preg, vag bleed Procedure Date: 01/03/2020 Accession Number: [id number] / [id number] Procedure: US - OB First Trimester CPT Code: Final Report FULL RESULT: EXAM: FIRST TRIMESTER OBSTETRIC ULTRASOUND (Less than 11 weeks) EXAM DATE: 01/03/2020 11:04 PM. CLINICAL HISTORY: 14 weeks preg, vag bleed. LMP: Unknown. COMPARISONS: OB FIRST TRIMESTER 12/16/2019 4:11 PM. TECHNIQUE: Transabdominal and transvaginal ultrasound examination with static image documentation. CLINICAL DATES: EGA 13 weeks and 3 days with GEETA 07/07/2020 based on prior ultrasound. ASSESSMENT: Gestational Sac: Single intrauterine. Mean gestational sac diameter: 73 mm = 14 weeks and 1 day. Embryo: CRL (crown-rump length) 77 mm = 13 weeks and 5 days. Cardiac activity: 155 beats per minute. Yolk sac: Not seen. Amniotic fluid: Not accurately assessed at this gestational age. Early placenta: Posterior. Other: No perigestational fluid collection demonstrated. MATERNAL STRUCTURES: Uterus: Anteverted. Unremarkable. Cervix: Closed. Right Ovary/Adnexa: The ovary measures 3.4 x 2.5 x 1.7 cm, volume 7.6 cc. Unremarkable. Left Ovary/Adnexa:Left ovary is not seen. The left adnexa is unremarkable. Free Fluid: None. Other: None. IMPRESSION: 1. Single viable intrauterine at EGA 13 weeks and 5 days with GEETA 07/07/2020 based on crown-rump length, which is concordant with clinical dates. RADIA
[2020-01-04 00:23] VITALS: BP 115/60
== END 2020-01-04 01:04 | disposition home or self-care (01) ==
LOC: ED 21:38
DX: O99.89 Other specified diseases and conditions complicating pregnancy, childbirth and the puerperium (principal); R10.2 Pelvic and perineal pain; Z3A.13 13 weeks gestation of pregnancy
CPT/HCPCS: 36415; 76801; 76817; 80053; 81001; 81003; 83690; 84702; 85025; 87086; 96374; 99284

== ENCOUNTER 2020-01-13 14:17 | Emergency (ER) | payer BC, OTHER ==
--- NOTE | 2020-01-13 15:48 | ED Physician Documentation ---
PD HPI SKIN - Stated complaint Stated Complaint: ALLERGIC REACTION - Chief complaint Chief Complaint: Allergic Rx - History obtained from History obtained from: Patient - History of Present Illness Timing - onset: How many hours ago (2) Timing - duration: Minutes Timing - details: Gradual onset. No: Still present (improving after having taken Benadryl 1/2 hour ago.) Location: [place] Quality / character: Itchy Improved by: Benadryl Associated symptoms: Myalgias. 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 She took first tab (same mg) today and about 1 1/2-2 hours after, noted onset of hives/itching and feeling lightheaded with nausea. Symptoms similar to other allergic reactions to other things in the past.) Similar symptoms before: Diagnosis (allergic reactions to other things felt similar.) Recently seen: Clinic Review of Systems Constitutional: denies: Fever Nose: denies: Rhinorrhea / runny nose, Congestion Throat: denies: Oral lesions / sores, Sore throat Respiratory: denies: Cough GI: reports: Nausea. denies: Abdominal Pain, Vomiting, Diarrhea : denies: Dysuria, Frequency Skin: reports: Rash Musculoskeletal: denies: Extremity swelling Neurologic: reports: Generalized weakness. 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 : None HEENT: None Psych: None Musculoskeletal: None Derm: None - Past Surgical History Past Surgical History: Yes General: Appendectomy, Other Ortho: Other /MEAT LUGGER: LEEP (Cervical surgery), Other HEENT: Tonsil/Adenoidectomy - Present Medications Home Medications: Ambulatory Orders Medication Instructions Recorded Confirmed Fluticasone [Flonase] 1 spray NS DAILY 04/17/16 09/25/19 Cholecalciferol (Vitamin D3) 2,000 unit PO DAILY 05/28/17 09/25/19 [Vitamin D] EPINEPHrine [Epipen 2-Michael] 0.3 mg IJ ONCE #1 auto.injct 08/03/18 09/25/19 Esomeprazole Magnesium [Nexium] 20 mg PO DAILY 09/25/19 09/25/19 Propafenone HCl [Propafenone HCl 225 mg PO BID 09/25/19 09/25/19 ER] Calcium Carbonate [Calcium] 600 mg PO 10/05/19 10/05/19 Meclizine HCl [Motion Sickness 25 mg PO Q6H PRN #25 tablet 12/09/19 Relief] Metoprolol Tartrate [Lopressor] 12.5 mg PO DAILY #10 tablet 12/09/19 Naproxen 375 mg PO BID #20 tablet 12/09/19 Ondansetron Odt [Zofran] 4 mg TL Q6H PRN #20 tablet 12/09/19 Pyridoxine HCl (Vitamin B6) 25 mg PO BID #40 tablet 12/09/19 [Vitamin B-6] dexAMETHasone [Decadron] 4 mg PO DAILY #7 tablet 12/09/19 Metoclopramide [Reglan] 10 mg PO Q6H PRN #20 tablet 12/24/19 Cetirizine [ZyrTEC] 10 mg PO DAILY #15 tablet 01/13/20 Naproxen 375 mg PO BID #20 tablet 01/13/20 - Allergies Allergies/Adverse Reactions: Allergies Allergy/AdvReac Type Severity Reaction Status Date / Time bee venom protein (honey bee) Allergy Anaphylaxis Verified 01/13/20 14:20 grass pollen Allergy Anaphylaxis Verified 01/13/20 14:20 wheat Allergy Anaphylaxis Verified 01/13/20 14:20 adhesive AdvReac Rash Verified 01/13/20 14:20 Latex, Natural Rubber AdvReac Rash Verified 01/13/20 14:20 sulfamethoxazole AdvReac Hives Verified 01/13/20 14:20 [From Bactrim] trimethoprim [From Bactrim] AdvReac Hives Verified 01/13/20 14:20 - Social History Does the pt smoke?: No Smoking Status: Never smoker Does the pt drink ETOH?: No Does the pt have substance abuse?: No - Immunizations Immunizations are current?: Yes - POLST Patient has POLST: No PD ED PE NORMAL - Vitals Vital signs reviewed: Yes - General General: Alert and oriented X 3, No acute distress, Well developed/nourished - HEENT HEENT: Ears normal, Moist mucous membranes, Pharynx benign (no noted edema) - Neck Neck: Supple, no meningeal sign, No adenopathy - Cardiac Cardiac: RRR, No murmur - Respiratory Respiratory: Clear bilaterally - Derm Derm: Normal color, Warm and dry - Extremities Extremities: Normal ROM s pain, No edema, No calf tenderness / cord - Neuro Neuro: Alert and oriented X 3, No motor deficit, Normal speech Results - Vitals Vitals: Vital Signs - 24 hr 01/13/20 01/13/20 01/13/20 14:20 16:01 16:44 Temperature 36.5 C 36.7 C 36.5 C Heart Rate 60 67 59 L Respiratory 14 16 16 Rate Blood Pressure 128/88 H 116/76 124/60 O2 Saturation 100 98 99 Oxygen O2 Source Room air - Labs Labs: Laboratory Tests 01/13/20 16:40 POC Whole Bld Glucose 66 L PD MEDICAL DECISION MAKING - ED course Complexity details: reviewed results, considered differential (symptoms of some itching/hives, lightheaded and aches, onset couple hours after new medication, seems most likely causative. ), d/w patient Departure - Departure Disposition: Home, Self Care Clinical Impression: Allergic reaction to drug Qualifiers: Encounter type: initial encounter Qualified Code(s): T78.40XA - Allergy, unspecified, initial encounter Condition: Stable Record reviewed to determine appropriate education?: Yes Instructions: ED Drug React Allergic Follow-Up: ROLANDO BROWN ARNP [Primary Care Provider] - Prescriptions: Cetirizine [ZyrTEC] 10 mg PO DAILY #15 tablet Naproxen 375 mg PO BID #20 tablet Comments: For now we will presume your symptoms are related to the new medication. Resume your prior metoprolol medication instead. Stay well-hydrated. Use cetirizine antihistamine daily for the next several days to week. Add Benadryl if needed for itchiness or hives. You could use naproxen anti-inflammatory twice daily for pains. Add Tylenol if needed. Recheck if not improved over the next couple of days and return sooner if worsening. Tomorrow call your garbage worker about the symptoms and to discuss the medication regimens. Discharge Date/Time: 01/13/20 17:21
[2020-01-13] MEDS ORDERED: IBUPROFEN 600 MG TABLET PO STA (16:11)
[2020-01-13] MEDS ORDERED: CHERRY SYRUP 10 ML UDC PO ONE (16:13)
[2020-01-13] MEDS ORDERED: DEXAMETHASONE 10 MG/ML VIAL PO STA (16:13)
[2020-01-13] MEDS ORDERED: CETIRIZINE 10 MG TABLET PO STA (16:13)
[2020-01-13] MEDS ORDERED: IBUPROFEN 600 MG TABLET PO ONE (16:38)
[2020-01-13 16:46] VITALS: BP 124/60
== END 2020-01-13 17:21 | disposition home or self-care (01) ==
LOC: ED 14:17
DX: O99.89 Other specified diseases and conditions complicating pregnancy, childbirth and the puerperium (principal); L50.0 Allergic urticaria; R11.0 Nausea; R42 Dizziness and giddiness; T44.7X5A Adverse effect of beta-adrenoreceptor antagonists, initial encounter; Z3A.00 Weeks of gestation of pregnancy not specified
CPT/HCPCS: 93005; 99283; 99284; A9270

== ENCOUNTER 2020-01-27 10:26 | Emergency (ER) | payer BC, OTHER ==
[2020-01-27] MEDS ORDERED: ALBUTEROL NEB 2.5 MG/3 ML INH STA (12:28)
--- NOTE | 2020-01-27 12:34 | ED Physician Documentation ---
PD HPI URI - Stated complaint Stated Complaint: THAI EAR PX, SOA - Chief complaint Chief Complaint: Resp - History obtained from History obtained from: Patient (30 yr old daryl, 17 weeks gestation first , comes in today with complaints of bilateral ear pain and shortness of breath. onset two days now, she has tried to use her albuterol MDI at home this morning with some releif of the shortness of breath, but she continues to have m id chest burning sensation. she denies having GERD from her . she denies fevers, chills, nausea, vomiting, diarrhea, headache. she did have a sick coworker who was not seen nor treated for any illness and did not miss any work. The pt suspects this is how she obtained her illness. She deneis any other sick contacts. She has tried no ibuprofen or tylenol for pain control.) Review of Systems Constitutional: reports: Fatigue. denies: Fever, Chills, Myalgias Ears: reports: Ear pain. denies: Loss of hearing, Drainage/discharge, Tinnitus/ringing Nose: reports: Reviewed and negative Throat: reports: Sore throat. 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: Endometriosis : None HEENT: None Psych: None Musculoskeletal: None Derm: None - Past Surgical History Past Surgical History: Yes General: Appendectomy, Other Ortho: Other /INDEPENDENT TRADER: LEEP (Cervical surgery), Other HEENT: Tonsil/Adenoidectomy - Present Medications Home Medications: Ambulatory Orders Medication Instructions Recorded Confirmed Fluticasone [Flonase] 1 spray NS DAILY 04/17/16 09/25/19 Cholecalciferol (Vitamin D3) 2,000 unit PO DAILY 05/28/17 09/25/19 [Vitamin D] EPINEPHrine [Epipen 2-Michael] 0.3 mg IJ ONCE #1 auto.injct 08/03/18 09/25/19 Esomeprazole Magnesium [Nexium] 20 mg PO DAILY 09/25/19 09/25/19 Propafenone HCl [Propafenone HCl 225 mg PO BID 09/25/19 09/25/19 ER] Calcium Carbonate [Calcium] 600 mg PO 10/05/19 10/05/19 Meclizine HCl [Motion Sickness 25 mg PO Q6H PRN #25 tablet 12/09/19 Relief] Metoprolol Tartrate [Lopressor] 12.5 mg PO DAILY #10 tablet 12/09/19 Naproxen 375 mg PO BID #20 tablet 12/09/19 Ondansetron Odt [Zofran] 4 mg TL Q6H PRN #20 tablet 12/09/19 Pyridoxine HCl (Vitamin B6) 25 mg PO BID #40 tablet 12/09/19 [Vitamin B-6] dexAMETHasone [Decadron] 4 mg PO DAILY #7 tablet 12/09/19 Metoclopramide [Reglan] 10 mg PO Q6H PRN #20 tablet 12/24/19 Cetirizine [ZyrTEC] 10 mg PO DAILY #15 tablet 01/13/20 Naproxen 375 mg PO BID #20 tablet 01/13/20 - Allergies Allergies/Adverse Reactions: Allergies Allergy/AdvReac Type Severity Reaction Status Date / Time bee venom protein (honey bee) Allergy Anaphylaxis Verified 01/27/20 10:46 grass pollen Allergy Anaphylaxis Verified 01/27/20 10:46 wheat Allergy Anaphylaxis Verified 01/27/20 10:46 adhesive AdvReac Rash Verified 01/27/20 10:46 Latex, Natural Rubber AdvReac Rash Verified 01/27/20 10:46 sulfamethoxazole AdvReac Hives Verified 01/27/20 10:46 [From Bactrim] trimethoprim [From Bactrim] AdvReac Hives Verified 01/27/20 10:46 - Living Situation Living Situation: reports: With spouse/s.o. - Social History Does the pt smoke?: No Smoking Status: Never smoker Does the pt drink ETOH?: No Does the pt have substance abuse?: No - Immunizations Immunizations are current?: Yes - POLST Patient has POLST: No PD ED PE NORMAL - General General: Alert and oriented X 3 - HEENT HEENT: PERRL, EOMI, Ears normal, Moist mucous membranes, Pharynx benign - Neck Neck: No adenopathy - Cardiac Cardiac: RRR, No murmur - Respiratory Respiratory: Other (slight wheezing noted) - Female Female : Deferred - Psych Psych: Normal mood, Normal affect Results - Vitals Vitals: Vital Signs - 24 hr 01/27/20 01/27/20 01/27/20 10:46 12:14 12:28 Temperature 37.4 C 36.3 C L Heart Rate 98 76 86 Respiratory 22 16 20 Rate Blood Pressure 118/74 112/65 O2 Saturation 99 99 01/27/20 13:38 Temperature 36.7 C Heart Rate 72 Respiratory 16 Rate Blood Pressure 112/60 O2 Saturation 98 Oxygen O2 Source Room air PD MEDICAL DECISION MAKING - ED course Complexity details: reviewed old records, d/w patient Departure - Departure Disposition: Home, Self Care Clinical Impression: Upper respiratory tract infection Qualifiers: URI type: unspecified URI Qualified Code(s): J06.9 - Acute upper respiratory infection, unspecified Condition: Good Instructions: ED Viral Syndrome Comments: Suspect viral URI symptoms, expect the illness to last 3-5 days. The patient is encouraged to continue using her Albuterol MDI PRN for shortness of breath. You can take tylenol or ibuprofen for ear pain. Encourage plenty of clear fluids intake. follow up with her PCP in 3-5 days if no signs of improvement. Forms: Activity restrictions Discharge Date/Time: 01/27/20 13:39
[2020-01-27 13:39] VITALS: BP 112/60
== END 2020-01-27 13:39 | disposition home or self-care (01) ==
LOC: ED 10:26
DX: O99.512 Diseases of the respiratory system complicating pregnancy, second trimester (principal); J06.9 Acute upper respiratory infection, unspecified; Z3A.17 17 weeks gestation of pregnancy
CPT/HCPCS: 99283; 99284

== ENCOUNTER 2020-02-07 13:15 | Emergency (ER) | payer BC, OTHER ==
--- NOTE | 2020-02-07 13:40 | ED Physician Documentation ---
PD HPI DYSPNEA - Stated complaint Stated Complaint: SOA,RASH - Chief complaint Chief Complaint: Resp - History obtained from History obtained from: Patient - History of Present Illness Timing - onset: Today Timing - onset during: Other (At work) Timing - duration: Minutes Timing - details: Abrupt onset Inciting event(s): Allergic rxn/anaphylaxis Improved by: Inhaler/neb, Benadryl Associated symptoms: Cough, Chest pain / discomfort. 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 She started work approximately an hour and a half prior to presentation and suddenly got onset of tightness across her chest felt short of breath and broke out in a rash on her chest and her arms and legs.It seems similar to allergic reactions that she has had in the past but she cannot think of anything that she was exposed to today. She did eat a brownie that she had made at home on her way to work and she has a wheat allergy with anaphylaxis but she says she used a gluten-free flour that she has baked with in the past. There were no nuts. She also ate steak and [place] sprouts this morning that she made at home. She not really feeling itchy. She developed a bit of a cough. She immediately took 50 mg of Benadryl and used her inhaler and is feeling little bit better although she is lightheaded. She is having sharp chest pain in the middle of her chest. Is not radiating to her back. She does not have any nausea or vomiting. She is 19 weeks seen at the electrical high tension tester at [facility] because she is 7 para 0 with 6 prior miscarriages 1 at 26 weeks. She did have some vaginal bleeding early in this at 10 weeks and she has been having some cramping through this week but no associated vaginal spotting. She is O+. She has been having a headache but she is lightheaded has not passed out. No nausea or vomiting. No fever. No history of diabetes. She did have a dry cough last week but that seems to be resolving and she did not take any medications for it. She was seen here in the emergency department for that was given a nebulizer treatment but not placed on any steroid medications. She has her next OB appointment on 10 days from now. Denies history of blood clots. Review of Systems Constitutional: denies: Fever Nose: denies: Rhinorrhea / runny nose, Congestion Throat: denies: Sore throat Cardiac: reports: Chest pain / pressure Respiratory: reports: Dyspnea, Cough GI: denies: Abdominal Pain, Nausea, Vomiting : reports: Now EGA (19 weeks). 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 : None HEENT: None Psych: None Musculoskeletal: None Derm: None - Past Surgical History Past Surgical History: Yes General: Appendectomy, Other Ortho: Other /STRAW BOSS: LEEP (Cervical surgery), Other HEENT: Tonsil/Adenoidectomy - Present Medications Home Medications: Ambulatory Orders Medication Instructions Recorded Confirmed Fluticasone [Flonase] 1 spray NS DAILY 04/17/16 09/25/19 Cholecalciferol (Vitamin D3) 2,000 unit PO DAILY 05/28/17 09/25/19 [Vitamin D] EPINEPHrine [Epipen 2-Michael] 0.3 mg IJ ONCE #1 auto.injct 08/03/18 09/25/19 Esomeprazole Magnesium [Nexium] 20 mg PO DAILY 09/25/19 09/25/19 Propafenone HCl [Propafenone HCl 225 mg PO BID 09/25/19 09/25/19 ER] Calcium Carbonate [Calcium] 600 mg PO 10/05/19 10/05/19 Meclizine HCl [Motion Sickness 25 mg PO Q6H PRN #25 tablet 12/09/19 Relief] Metoprolol Tartrate [Lopressor] 12.5 mg PO DAILY #10 tablet 12/09/19 Naproxen 375 mg PO BID #20 tablet 12/09/19 Ondansetron Odt [Zofran] 4 mg TL Q6H PRN #20 tablet 12/09/19 Pyridoxine HCl (Vitamin B6) 25 mg PO BID #40 tablet 12/09/19 [Vitamin B-6] dexAMETHasone [Decadron] 4 mg PO DAILY #7 tablet 12/09/19 Metoclopramide [Reglan] 10 mg PO Q6H PRN #20 tablet 12/24/19 Cetirizine [ZyrTEC] 10 mg PO DAILY #15 tablet 01/13/20 Naproxen 375 mg PO BID #20 tablet 01/13/20 predniSONE [Prednisone] 60 mg PO DAILY #9 tablet 02/07/20 - Allergies Allergies/Adverse Reactions: Allergies Allergy/AdvReac Type Severity Reaction Status Date / Time bee venom protein (honey bee) Allergy Anaphylaxis Verified 02/07/20 13:21 grass pollen Allergy Anaphylaxis Verified 02/07/20 13:21 wheat Allergy Anaphylaxis Verified 02/07/20 13:21 adhesive AdvReac Rash Verified 02/07/20 13:21 Latex, Natural Rubber AdvReac Rash Verified 02/07/20 13:21 metoprolol AdvReac Rash Verified 02/07/20 13:30 sulfamethoxazole AdvReac Hives Verified 02/07/20 13:21 [From Bactrim] trimethoprim [From Bactrim] AdvReac Hives Verified 02/07/20 13:21 - Social History Does the pt smoke?: No Smoking Status: Never smoker Does the pt drink ETOH?: No Does the pt have substance abuse?: No - Immunizations Immunizations are current?: Yes - POLST Patient has POLST: No PD ED PE NORMAL - Vitals Vital signs reviewed: Yes - General General: Alert and oriented X 3, No acute distress, Well developed/nourished - HEENT HEENT: Atraumatic, PERRL, EOMI, Moist mucous membranes, Other (No intraoral edema) - Neck Neck: No adenopathy, Thyroid normal - Cardiac Cardiac: RRR, No murmur, Strong equal pulses - Respiratory Respiratory: No respiratory distress, Clear bilaterally - Abdomen Abdomen: Normal bowel sounds, Soft, Non tender - Female Female : Other ( heart tones 144-153) - Derm Derm: Normal color, Warm and dry, Other (There was some blotchy areas of erythema on her chest and scattered on her upper extremities when I initially went in the room but by the end of the exam I looked again and these had resolved except for 1 or 2 on her left arm.) - Extremities Extremities: No edema - Neuro Neuro: Alert and oriented X 3, No motor deficit, No sensory deficit, Normal speech Results - Vitals Vitals: Vital Signs - 24 hr 02/07/20 02/07/20 02/07/20 13:21 13:24 14:23 Temperature 36.6 C Heart Rate 64 65 62 Respiratory 20 16 16 Rate Blood Pressure 120/68 120/70 132/72 H O2 Saturation 99 99 99 Oxygen O2 Source Room air PD MEDICAL DECISION MAKING - ED course Complexity details: re-evaluated patient, d/w patient ED course: 1420: Patient had an IV started she was given Pepcid 10 mg and Solu-Medrol 125 mg IV. On reevaluation she looked like she was breathing much easier. All of the red spots that I had initially seen when I examined her are gone. She has an EpiPen at home. We discussed again what could have set this off and whether there was some cross-contamination when she ate the brownie. She said it is possible that she even had something on her hands because she did wash her hands before she ate it. She will be discharged with 3 days of prednisone 60 mg. Continue with the Benadryl at home and add Pepcid twice daily. She does have an EpiPen at home if needed. Follow-up with the OB as scheduled and return to the emergency department if she has any worsening symptoms, vaginal bleeding or increasing abdominal cramping. Departure - Departure Disposition: Home, Self Care Clinical Impression: Hives Allergic reaction Qualifiers: Encounter type: initial encounter Qualified Code(s): T78.40XA - Allergy, unspecified, initial encounter Condition: Good Instructions: ED Urticaria Follow-Up: ROLANDO BROWN ARNP [Primary Care Provider] - ,electrical high tension tester [Other] Prescriptions: predniSONE [Prednisone] 60 mg PO DAILY #9 tablet Comments: Take Benadryl every 4-6 hours for the next 2 to 3 days. Take Pepcid twice a day for the next 3 days. Take the prednisone 60 mg daily for the next 3 days. You should start the prednisone tonight. Make sure you have access to your EpiPen in case you have worsening symptoms. Follow-up with the OB as scheduled in 10 days. Return to the emergency department if the rash is worsening, you develop or shortness of breath, increased pelvic cramping or vaginal bleeding. Forms: Activity restrictions Discharge Date/Time: 02/07/20 14:38
[2020-02-07] MEDS ORDERED: methylPREDNISolone SUCCINATE 125 MG/2 ML VIAL IVP STA (13:41)
[2020-02-07] MEDS ORDERED: FAMOTIDINE 20 MG/2 ML VIAL IVP STA (13:41)
[2020-02-07 14:24] VITALS: BP 132/72
== END 2020-02-07 14:38 | disposition home or self-care (01) ==
LOC: ED 13:15
DX: O99.89 Other specified diseases and conditions complicating pregnancy, childbirth and the puerperium (principal); T78.40XA Allergy, unspecified, initial encounter; Z3A.19 19 weeks gestation of pregnancy
CPT/HCPCS: 96374; 99284

== ENCOUNTER 2020-02-26 13:38 | Emergency (ER) | payer BC, OTHER ==
--- NOTE | 2020-02-26 14:02 | ED Physician Documentation ---
PD HPI CHEST PAIN - Stated complaint Stated Complaint: DIZZY/HEART RACING - Chief complaint Chief Complaint: Cardiac - History obtained from History obtained from: Patient (Clotilde is a 30 yo F @ 21+4 who presents with a brief episode of chest pain and dyspnea. 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 She takes metoprolol daily and she took 2 nitro after sx started. Sx lasted a few minutes and resolved after nitro. She is currently asymptomatic. + movement, no lof/vb. No abd pain, n/v, dysuria.) Review of Systems Constitutional: reports: Reviewed and negative Eyes: reports: Reviewed and negative Ears: reports: Reviewed and negative Throat: reports: Reviewed and negative Cardiac: reports: Chest pain / pressure, Palpitations. denies: Pedal edema, Calf pain Respiratory: reports: Dyspnea. denies: Cough, Hemoptysis, Wheezing GI: reports: Reviewed and negative : reports: Reviewed and negative Neurologic: reports: Reviewed and negative PD PAST MEDICAL HISTORY - Past Medical History Cardiovascular: Atrial fibrillation, Other Respiratory: None Neuro: None Endocrine/Autoimmune: None GI: None [employer]: Endometriosis : None HEENT: None Psych: None Musculoskeletal: None Derm: None - Past Surgical History Past Surgical History: Yes General: Appendectomy, Other Ortho: Other /[employer]: LEEP (Cervical surgery), Other HEENT: Tonsil/Adenoidectomy - Present Medications Home Medications: Ambulatory Orders Medication Instructions Recorded Confirmed Fluticasone [Flonase] 1 spray NS DAILY 04/17/16 09/25/19 Cholecalciferol (Vitamin D3) 2,000 unit PO DAILY 05/28/17 09/25/19 [Vitamin D] EPINEPHrine [Epipen 2-Michael] 0.3 mg IJ ONCE #1 auto.injct 08/03/18 09/25/19 Esomeprazole Magnesium [Nexium] 20 mg PO DAILY 09/25/19 09/25/19 Propafenone HCl [Propafenone HCl 225 mg PO BID 09/25/19 09/25/19 ER] Calcium Carbonate [Calcium] 600 mg PO 10/05/19 10/05/19 Meclizine HCl [Motion Sickness 25 mg PO Q6H PRN #25 tablet 12/09/19 Relief] Metoprolol Tartrate [Lopressor] 12.5 mg PO DAILY #10 tablet 12/09/19 Naproxen 375 mg PO BID #20 tablet 12/09/19 Ondansetron Odt [Zofran] 4 mg TL Q6H PRN #20 tablet 12/09/19 Pyridoxine HCl (Vitamin B6) 25 mg PO BID #40 tablet 12/09/19 [Vitamin B-6] dexAMETHasone [Decadron] 4 mg PO DAILY #7 tablet 12/09/19 Metoclopramide [Reglan] 10 mg PO Q6H PRN #20 tablet 12/24/19 Cetirizine [ZyrTEC] 10 mg PO DAILY #15 tablet 01/13/20 Naproxen 375 mg PO BID #20 tablet 01/13/20 predniSONE [Prednisone] 60 mg PO DAILY #9 tablet 02/07/20 - Allergies Allergies/Adverse Reactions: Allergies Allergy/AdvReac Type Severity Reaction Status Date / Time bee venom protein (honey bee) Allergy Anaphylaxis Verified 02/07/20 13:21 grass pollen Allergy Anaphylaxis Verified 02/07/20 13:21 wheat Allergy Anaphylaxis Verified 02/07/20 13:21 adhesive AdvReac Rash Verified 02/07/20 13:21 Latex, Natural Rubber AdvReac Rash Verified 02/07/20 13:21 metoprolol AdvReac Rash Verified 02/07/20 13:30 sulfamethoxazole AdvReac Hives Verified 02/07/20 13:21 [From Bactrim] trimethoprim [From Bactrim] AdvReac Hives Verified 02/07/20 13:21 - Social History Does the pt smoke?: No Smoking Status: Never smoker Does the pt drink ETOH?: No Does the pt have substance abuse?: No - Immunizations Immunizations are current?: Yes - POLST Patient has POLST: No PD ED PE NORMAL - Vitals Vital signs reviewed: Yes - General General: Alert and oriented X 3, No acute distress, Well developed/nourished - HEENT HEENT: Atraumatic, Moist mucous membranes, Pharynx benign - Cardiac Cardiac: RRR, No murmur, No gallop, No rub, Strong equal pulses - Respiratory Respiratory: No respiratory distress, Clear bilaterally - Abdomen Abdomen: Normal bowel sounds, Soft, Non tender, Non distended, Other (Gravid abdomen, fundus 2cm above the umbilicus. active heart tones at 147 bpm per doppler. ) - Female Female : Deferred - Derm Derm: Normal color, Warm and dry - Neuro Neuro: Alert and oriented X 3 Eye Opening: Spontaneous Motor: Obeys Commands Verbal: Oriented GCS Score: 15 - Psych Psych: Normal mood, Normal affect Results - Vitals Vitals: Vital Signs - 24 hr 02/26/20 02/26/20 02/26/20 13:46 14:03 15:08 Temperature 36.7 C 37.2 C Heart Rate 70 69 60 Respiratory 16 15 14 Rate Blood Pressure 113/73 106/72 121/60 O2 Saturation 99 100 100 Oxygen O2 Source Room air - Labs Labs: Laboratory Tests 02/26/20 02/26/20 02/26/20 14:11 14:11 14:11 WBC 9.6 RBC 3.92 L Hgb 11.6 L Hct 34.9 L MCV 89.0 MCH 29.6 MCHC 33.2 RDW 13.6 Plt Count 258 MPV 11.2 H Neut # (Auto) 6.7 H Lymph # (Auto) 2.2 [place] # (Auto) 0.5 Eos # (Auto) 0.1 Baso # (Auto) 0.1 Absolute Nucleated RBC 0.00 Nucleated RBC % 0.0 Sodium 134 L Potassium 3.7 Chloride 105 Carbon Dioxide 20 L Anion Gap 9.0 BUN 6 Creatinine 0.6 Estimated GFR (MDRD) 116 Glucose 121 H Calcium 9.0 Total Bilirubin 0.3 AST 22 ALT 29 Alkaline Phosphatase 59 Troponin I High Sens < 2.3 L Total Protein 6.3 L Albumin 2.9 L Globulin 3.4 Albumin/Globulin Ratio 0.9 L Lipase 24 Urine Color Urine Clarity Urine pH Ur Specific [place] Urine Protein Urine Glucose (UA) Urine Ketones Urine Occult Blood Urine Nitrite Urine Bilirubin Urine Urobilinogen Ur Leukocyte Esterase Ur Microscopic Review Urine Culture Comments 02/26/20 15:20 WBC RBC Hgb Hct MCV MCH MCHC RDW Plt Count MPV Neut # (Auto) Lymph # (Auto) [place] # (Auto) Eos # (Auto) Baso # (Auto) Absolute Nucleated RBC Nucleated RBC % Sodium Potassium Chloride Carbon Dioxide Anion Gap BUN Creatinine Estimated GFR (MDRD) Glucose Calcium Total Bilirubin AST ALT Alkaline Phosphatase Troponin I High Sens Total Protein Albumin Globulin Albumin/Globulin Ratio Lipase Urine Color YELLOW Urine Clarity CLEAR Urine pH 7.0 Ur Specific [place] <=1.005 Urine Protein NEGATIVE Urine Glucose (UA) NEGATIVE Urine Ketones NEGATIVE Urine Occult Blood NEGATIVE Urine Nitrite NEGATIVE Urine Bilirubin NEGATIVE Urine Urobilinogen 0.2 (NORMAL) Ur Leukocyte Esterase NEGATIVE Ur Microscopic Review NOT INDICATED Urine Culture Comments NOT INDICATED Departure - Departure Disposition: 01 Home, Self Care Clinical Impression: Atypical chest pain Dyspnea Qualifiers: Dyspnea type: shortness of breath Qualified Code(s): R06.02 - Shortness of breath; R06.00 - Dyspnea, unspecified; R06.01 - Orthopnea Condition: Good Instructions: ED Dyspnea Shortness of Breath, ED Chest Pain Atypical Unkn Cause Comments: Please continue your regular medication and follow ups w/ cardiology and high- risk OB. Return if you have worsening symptoms or not relieved with your regular medications. Stay well hydrated. Return at anytime if you have abdominal cramping, vaginal bleeding or water leakage, or decreased movement.
[2020-02-26 14:19] LABS: BASOPHILS # (AUTO) 0.1 10^3/uL (0.0-0.1); BASOPHILS % (AUTO) 0.5 %; EOSINOPHILS # (AUTO) 0.1 10^3/uL (0.0-0.7); EOSINOPHILS % (AUTO) 1.1 %; HGB - HEMOGLOBIN 11.6 g/dL (12.0-16.0); LYMPHOCYTES # (AUTO) 2.2 10^3/uL (1.5-3.5); LYMPHOCYTES % (AUTO) 22.5 %; MEAN CORPUSCULAR HEMOGLOBIN 29.6 pg (27.0-31.0); MEAN CORPUSCULAR HGB CONC 33.2 g/dL (32.0-36.0); MEAN PLATELET VOLUME 11.2 fL (7.9-10.8); MONOCYTES # (AUTO) 0.5 10^3/uL (0.0-1.0); MONOCYTES % (AUTO) 5.3 %; NEUTROPHILS # (AUTO) 6.7 10^3/uL (1.5-6.6); NEUTROPHILS % (AUTO) 69.9 %; PLT - PLATELET COUNT 258 10^3/uL (130-450); RED BLOOD COUNT 3.92 10^6/uL (4.20-5.40); RED CELL DISTRIBUTION WIDTH 13.6 % (12.0-15.0); WHITE BLOOD COUNT 9.6 x10^3/uL (4.8-10.8)
[2020-02-26 14:30] LABS: ALBUMIN 2.9 g/dL (3.2-5.5); ALBUMIN/GLOBULIN RATIO 0.9 (1.0-2.2); BILIRUBIN,TOTAL 0.3 mg/dL (0.2-1.0); CREATININE 0.6 mg/dL (0.4-1.0); TOTAL PROTEIN 6.3 g/dL (6.7-8.2)
[2020-02-26 15:33] LABS: BILIRUBIN,URINE NEGATIVE (NEGATIVE); GLUCOSE, URINE (UA) NEGATIVE (NEGATIVE); KETONES,URINE (UA) NEGATIVE (NEGATIVE); LEUKOCYTE ESTERASE, URINE NEGATIVE (NEGATIVE); NITRITE,URINE NEGATIVE (NEGATIVE); OCCULT BLOOD,URINE NEGATIVE (NEGATIVE); PROTEIN,URINE NEGATIVE (NEGATIVE); UROBILINOGEN,URINE 0.2 (NORMAL) E.U./dL (NORMAL)
[2020-02-26 15:36] LABS: CLARITY,URINE CLEAR (CLEAR)
[2020-02-26 15:49] VITALS: BP 125/71
== END 2020-02-26 16:17 | disposition home or self-care (01) ==
LOC: ED 13:38
DX: O99.89 Other specified diseases and conditions complicating pregnancy, childbirth and the puerperium (principal); R07.89 Other chest pain; R06.01 Orthopnea
CPT/HCPCS: 36415; 80053; 81001; 81003; 83690; 84484; 85025; 87086; 93005; 99284

== ENCOUNTER 2020-03-18 18:40 | Emergency (ER) | payer BC, OTHER ==
[2020-03-18 19:06] LABS: BASOPHILS # (AUTO) 0.1 10^3/uL (0.0-0.1); BASOPHILS % (AUTO) 0.4 %; EOSINOPHILS # (AUTO) 0.1 10^3/uL (0.0-0.7); EOSINOPHILS % (AUTO) 0.9 %; HGB - HEMOGLOBIN 11.5 g/dL (12.0-16.0); LYMPHOCYTES # (AUTO) 2.6 10^3/uL (1.5-3.5); MEAN CORPUSCULAR HEMOGLOBIN 29.7 pg (27.0-31.0); MEAN CORPUSCULAR HGB CONC 33.1 g/dL (32.0-36.0); MEAN CORPUSCULAR VOLUME 89.7 fL (81.0-99.0); MEAN PLATELET VOLUME 11.1 fL (7.9-10.8); MONOCYTES # (AUTO) 0.6 10^3/uL (0.0-1.0); MONOCYTES % (AUTO) 5.4 %; NEUTROPHILS # (AUTO) 7.8 10^3/uL (1.5-6.6); NEUTROPHILS % (AUTO) 69.7 %; PLT - PLATELET COUNT 259 10^3/uL (130-450); RED BLOOD COUNT 3.87 10^6/uL (4.20-5.40); RED CELL DISTRIBUTION WIDTH 14.3 % (12.0-15.0); WHITE BLOOD COUNT 11.2 x10^3/uL (4.8-10.8)
--- NOTE | 2020-03-18 19:07 | ED Physician Documentation ---
PD HPI CHEST PAIN - Stated complaint Stated Complaint: HEART Palpitations - Chief complaint Chief Complaint: Cardiac - History obtained from History obtained from: Patient (Pt is a 30 yo at 25 wga who has a hx/o heart palpitations and chest pain. She is followed by cardiology and has a visit tomorrow. She is on metoprolol. Today after work she felt an episode of heart palpitations and contacted her OB who advised her to be evaluated in the ED. She had no chest pain or dyspnea with this episode. She denies any fever/chills, cough or URI sx, abd pain, n/v/d. No vaginal bleeding or loss of fluid. Feeling baby move regularly. Reports having some caffeinated beverages today but not more so than normal. No new meds. No new stressors. Feeling well otherwise.) Review of Systems Constitutional: reports: Reviewed and negative Eyes: reports: Reviewed and negative Ears: reports: Reviewed and negative Throat: reports: Reviewed and negative Cardiac: reports: Palpitations, Pedal edema. denies: Chest pain / pressure, Calf pain Respiratory: denies: Dyspnea, Cough, Hemoptysis, Wheezing GI: reports: Hematemesis. 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 : None HEENT: None Psych: None Musculoskeletal: None Derm: None - Past Surgical History Past Surgical History: Yes General: Appendectomy, Other Ortho: Other /HOSPITAL INSURANCE REPRESENTATIVE: LEEP (Cervical surgery), Other HEENT: Tonsil/Adenoidectomy - Present Medications Home Medications: Ambulatory Orders Medication Instructions Recorded Confirmed Fluticasone [Flonase] 1 spray NS DAILY 04/17/16 09/25/19 Cholecalciferol (Vitamin D3) 2,000 unit PO DAILY 05/28/17 09/25/19 [Vitamin D] EPINEPHrine [Epipen 2-Michael] 0.3 mg IJ ONCE #1 auto.injct 08/03/18 09/25/19 Esomeprazole Magnesium [Nexium] 20 mg PO DAILY 09/25/19 09/25/19 Propafenone HCl [Propafenone HCl 225 mg PO BID 09/25/19 09/25/19 ER] Calcium Carbonate [Calcium] 600 mg PO 10/05/19 10/05/19 Meclizine HCl [Motion Sickness 25 mg PO Q6H PRN #25 tablet 12/09/19 Relief] Metoprolol Tartrate [Lopressor] 12.5 mg PO DAILY #10 tablet 12/09/19 Naproxen 375 mg PO BID #20 tablet 12/09/19 Ondansetron Odt [Zofran] 4 mg TL Q6H PRN #20 tablet 12/09/19 Pyridoxine HCl (Vitamin B6) 25 mg PO BID #40 tablet 12/09/19 [Vitamin B-6] dexAMETHasone [Decadron] 4 mg PO DAILY #7 tablet 12/09/19 Metoclopramide [Reglan] 10 mg PO Q6H PRN #20 tablet 12/24/19 Cetirizine [ZyrTEC] 10 mg PO DAILY #15 tablet 01/13/20 Naproxen 375 mg PO BID #20 tablet 01/13/20 predniSONE [Prednisone] 60 mg PO DAILY #9 tablet 02/07/20 - Allergies Allergies/Adverse Reactions: Allergies Allergy/AdvReac Type Severity Reaction Status Date / Time bee venom protein (honey bee) Allergy Anaphylaxis Verified 03/18/20 18:48 grass pollen Allergy Anaphylaxis Verified 03/18/20 18:48 wheat Allergy Anaphylaxis Verified 03/18/20 18:48 adhesive AdvReac Rash Verified 03/18/20 18:48 Latex, Natural Rubber AdvReac Rash Verified 03/18/20 18:48 metoprolol AdvReac Rash Verified 03/18/20 18:48 sulfamethoxazole AdvReac Hives Verified 03/18/20 18:48 [From Bactrim] trimethoprim [From Bactrim] AdvReac Hives Verified 03/18/20 18:48 - Social History Does the pt smoke?: No Smoking Status: Never smoker Does the pt drink ETOH?: No Does the pt have substance abuse?: No - Immunizations Immunizations are current?: Yes - POLST Patient has POLST: No PD ED PE NORMAL - Vitals Vital signs reviewed: Yes - General General: Alert and oriented X 3, No acute distress, Well developed/nourished - HEENT HEENT: Atraumatic, Moist mucous membranes, Pharynx benign - Neck Neck: Supple, no meningeal sign, No JVD - Cardiac Cardiac: RRR, No murmur, No gallop, No rub, Strong equal pulses - Respiratory Respiratory: No respiratory distress, Clear bilaterally - Abdomen Abdomen: Normal bowel sounds, Soft, Non tender, Non distended, Other (gravid abdomen) - Derm Derm: Normal color, Warm and dry, No rash - Extremities Extremities: No deformity, Other (moderate pedeal edema bilat, no calf pain or fullness. no erythema. ) - Neuro Neuro: Alert and oriented X 3 Eye Opening: Spontaneous Motor: Obeys Commands Verbal: Oriented GCS Score: 15 - Psych Psych: Normal mood, Normal affect Results - Vitals Vitals: Vital Signs - 24 hr 03/18/20 03/18/20 18:48 19:49 Temperature 36.8 C 98.2 C H Heart Rate 75 73 Respiratory 16 15 Rate Blood Pressure 142/79 H 113/72 O2 Saturation 100 97 Oxygen O2 Source Room air - Labs Labs: Laboratory Tests 03/18/20 03/18/20 03/18/20 18:59 18:59 18:59 WBC 11.2 H RBC 3.87 L Hgb 11.5 L Hct 34.7 L MCV 89.7 MCH 29.7 MCHC 33.1 RDW 14.3 Plt Count 259 MPV 11.1 H Neut # (Auto) 7.8 H Lymph # (Auto) 2.6 Moore # (Auto) 0.6 Eos # (Auto) 0.1 Baso # (Auto) 0.1 Absolute Nucleated RBC 0.00 Nucleated RBC % 0.0 Sodium 136 Potassium 3.6 Chloride 106 Carbon Dioxide 22 Anion Gap 8.0 BUN 7 Creatinine 0.7 Estimated GFR (MDRD) 97 Glucose 115 H Calcium 8.8 Total Bilirubin 0.3 AST 27 ALT 24 Alkaline Phosphatase 64 Troponin I High Sens < 2.3 L Total Protein 6.3 L Albumin 3.1 L Globulin 3.2 Albumin/Globulin Ratio 1.0 Lipase 28 PD MEDICAL DECISION MAKING - ED course Complexity details: reviewed results, re-evaluated patient, considered differential, d/w patient ED course: Pt has a hx/o heart palpitations and presented today with an episode of heart palpitations. EKG showed a sinus arrythmia which she has had in the past, no acute st/t changes. Her rate remained in the 70s throughout her ER stay. Her triage BP was slightly elevated for but subsequent BPs within normal range. She had no chest pain or dyspnea. Feels regular baby movement and has not had dysuria, lof, or vaginal bleeding. She does have some pedal edema bilat which has been present the last few weeks. Improves with elevation. No headaches or vision changes, no RUQ pain to suggest concern for pre-eclampsia. 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 Continue to keep feet elevated, return to the ER or fup with OB if swelling worsens or develops neural sx. Departure - Departure Disposition: 01 Home, Self Care Clinical Impression: Sinus arrhythmia Condition: Good Instructions: ED Dysrhythmia Unspecified Comments: You presented today with heart palpitations. Your heart rhythm here has been normal and there are no acute findings on the EKG. Your labs are reassuring and there are no electrolyte abnormalities or evidence of heart damage. Please cont inue your medication as prescribed and discuss with your subwarehouse supervisor tomorrow during scheduled visit. Return at anytime if worsening symptoms. Discharge Date/Time: 03/18/20 19:48
[2020-03-18 19:20] LABS: ALBUMIN 3.1 g/dL (3.2-5.5); BILIRUBIN,TOTAL 0.3 mg/dL (0.2-1.0); CALCIUM 8.8 mg/dL (8.5-10.3); CREATININE 0.7 mg/dL (0.4-1.0); TOTAL PROTEIN 6.3 g/dL (6.7-8.2)
[2020-03-18 19:53] VITALS: BP 113/72
== END 2020-03-18 19:48 | disposition home or self-care (01) ==
LOC: ED 18:40
DX: O99.89 Other specified diseases and conditions complicating pregnancy, childbirth and the puerperium (principal); I49.8 Other specified cardiac arrhythmias; Z3A.25 25 weeks gestation of pregnancy
CPT/HCPCS: 36415; 80053; 83690; 84484; 85025; 93005; 99283; 99284

== ENCOUNTER 2020-03-21 15:30 | Outpatient (CLI) | payer BC, OTHER ==
[2020-03-21 16:15] LABS: BILIRUBIN,URINE NEGATIVE (NEGATIVE); GLUCOSE, URINE (UA) NEGATIVE (NEGATIVE); KETONES,URINE (UA) NEGATIVE (NEGATIVE); LEUKOCYTE ESTERASE, URINE NEGATIVE (NEGATIVE); NITRITE,URINE NEGATIVE (NEGATIVE); OCCULT BLOOD,URINE NEGATIVE (NEGATIVE); PROTEIN,URINE NEGATIVE (NEGATIVE); UROBILINOGEN,URINE 0.2 (NORMAL) E.U./dL (NORMAL)
[2020-03-21 16:27] LABS: BACTERIA,URINE None Seen /HPF (None Seen); CLARITY,URINE CLEAR (CLEAR); RBC,URINE None Seen /HPF (0-5); SQUAMOUS EPITHELIAL CELL,UR RARE Squamous (<= Few)
[2020-03-21 16:40] LABS: RUPTURE OF MEMBRANES PLUS NEGATIVE (NEGATIVE)
[2020-03-21 16:43] VITALS: BP 115/58
--- NOTE | 2020-03-21 17:23 | PROVIDER PROGRESS NOTE ---
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 Patient reports that she was at work when she experienced a small gush of fluid. No VB. Endorses FM. Feels some cramping that localizes to the left side.) Current : Current EDU 07/06/20 Gestation 24 Weeks and 5 Days 7 Para 1 Vital Signs Heart Rate 67 03/21/20 15:48 Respiratory Rate 18 03/21/20 15:48 Blood Pressure 115/58 L 03/21/20 15:48 O2 Saturation 100 03/21/20 15:48 Temperature 98.6 F 03/21/20 16:41 Heart Rate 64 03/21/20 16:41 Respiratory Rate 18 03/21/20 16:41 Blood Pressure 115/58 L 03/21/20 15:48 O2 Saturation 100 03/21/20 15:48 - Exam GEN: NAD CV: RR RESP: nl effort ABD: gravid, S&NT SSE: visually long and closed per RN report EXT: WWP EFM - Procedures OB Procedure Performed: NST NST Procedure: 140 mod danielle 10x10 accels occ decels--> AGA TOCO: quiet Service Date of procedure: 03/21/20 Findings: FFN neg ROM+ Neg TVCL 6.9 cm DEIRDRE 11.3 GCCT/vaginitis panel pending UA wnl - Plan Plan: 30 yo at 24+5 here with gush of fluid Neg ROM+ Reassuring exam TVCL 6.9 cm FFN neg EFM AGA/reassuring TOCO: no sgins of labor Remaining labs pending Patient reassured regarding PPROM/early labor Warning wigns reviewed Counseled to obtain helicopter insurance. FU with primary OB
--- NOTE | 2020-03-21 17:23 | Ultrasound Report ---
Reason: Cramping, Possible PROM, GEETA 07/06/2020 Procedure Date: 03/21/2020 Accession Number: [id number] / [id number] Procedure: US - OB Limited CPT Code: Final Report FULL RESULT: EXAM: LIMITED OBSTETRICAL ULTRASOUND EXAM DATE: 03/21/2020 04:16 PM. CLINICAL HISTORY: Cramping, possible PROM, GEETA 07/06/2020. COMPARISON: None. TECHNIQUE: Real-time sonographic evaluation of the fetus performed by the medical physicist. Multiple residential sales representative static images were saved for review. Additional transvaginal imaging to more accurately evaluate cervical length/placental position/etc. DATING: Established EGA 24 weeks 5 days with GEETA 07/06/2020. GENERAL EVALUATION Matthews . Cardiac activity: 146 bpm. Presentation: Cephalic. Placenta: Posterior fundal position. No previa or abruption. Amniotic fluid: DEIRDRE 11.3 cm. MVP 3.7 cm. MATERNAL STRUCTURES The maternal cervix is closed measuring 6.9 cm in length. IMPRESSION: 1. Matthews live intrauterine with gestational age 24 weeks 5 days based on established EGA. 2. DEIRDRE 11.3 cm. 3. The cervix is closed measuring 6.9 cm in length. RADIA
[2020-03-21 18:04] LABS: CANDIDA GROUP DNA NEGATIVE (NEGATIVE); CANDIDA KRUSEI DNA NEGATIVE (NEGATIVE); TRICHOMONAS VAGINALIS DNA NEGATIVE (NEGATIVE)
[2020-03-21 19:25] LABS: TRICHOMONAS VAGINALIS DNA NEGATIVE (NEGATIVE)
== END 2020-03-21 16:20 | disposition home or self-care (01) ==
LOC: WFO 15:30 → FBP 15:32 → WFO 16:20
PROVIDERS: ATTEND Obstetrics & Gynecology
DX: O09.292 Supervision of pregnancy with other poor reproductive or obstetric history, second trimester (principal); Z3A.24 24 weeks gestation of pregnancy
CPT/HCPCS: 76815; 76817; 81001; 82731; 84112; 87086; 87491; 87591; 87661; 87797; 87801; 99214

== ENCOUNTER 2020-04-23 22:19 | Outpatient (CLI) | payer BC, OTHER ==
[2020-04-23 22:45] VITALS: BP 112/65
[2020-04-23 23:01] LABS: BILIRUBIN,URINE NEGATIVE (NEGATIVE); GLUCOSE, URINE (UA) NEGATIVE (NEGATIVE); KETONES,URINE (UA) NEGATIVE (NEGATIVE); LEUKOCYTE ESTERASE, URINE NEGATIVE (NEGATIVE); NITRITE,URINE NEGATIVE (NEGATIVE); OCCULT BLOOD,URINE NEGATIVE (NEGATIVE); PROTEIN,URINE NEGATIVE (NEGATIVE); UROBILINOGEN,URINE 0.2 (NORMAL) E.U./dL (NORMAL)
[2020-04-23 23:20] LABS: BACTERIA,URINE None Seen /HPF (None Seen); CLARITY,URINE CLEAR (CLEAR); RBC,URINE None Seen /HPF (0-5); SQUAMOUS EPITHELIAL CELL,UR RARE Squamous (<= Few)
--- NOTE | 2020-04-24 02:57 | HISTORY & PHYSICAL EXAMINATION ---
DATE OF SERVICE: 04/23/2020 Physician: Dylon Owens MD IDENTIFICATION: A 30-year-old G7, P 1, AB5 female with no surviving infants. She is currently due 07/06/2020. She is 29 weeks EGA. CHIEF COMPLAINT: Contractions. HISTORY OF PRESENT ILLNESS: The patient roughly 7:00 after work developed contractions which were occurring every 15 minutes. She has a history of having early deliveries and thus was very concerned. She had some intercourse this morning. 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 PAST MEDICAL HISTORY: Supraventricular tachycardia, atrial fibrillation, endometriosis, cervical dysplasia. PAST SURGICAL HISTORY: LEEP in 2005, tonsillectomy, wisdom teeth, appendectomy, laparoscopy x3 for endometriosis as well as 1 left ovarian cyst. HABITS: The patient denies use of alcohol, tobacco, street or addictive drugs. ALLERGIES: SULFA. CURRENT MEDICATIONS 1. Metoprolol. 2. vitamins. 3. Zyrtec. HABITS: The patient is to active [employer]. 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 PHYSICAL EXAMINATION GENERAL: Well-developed, well-nourished white female in no acute distress. She is not showing any contractions on the monitor strip at this time. HEENT: Pupils are equal, round. Extraocular muscles are intact. Thyroid is not palpably enlarged. HEART: Regular rate and rhythm without murmurs. LUNGS: Lung rankin are clear without rales or wheezes. BACK: No spinal or CVA tenderness. ABDOMEN: Uterus is nontender. PELVIC: Speculum examination, FFN was obtained. Digital exam shows a cervix which is long and closed, presenting part is high. if this is positive, we will attribute it to the recent intercourse. IMPRESSION: A 30-year-old G7, P1 with no living infants at 29 weeks EGA with poor obstetrical history. She does not show evidence of any cervical change. She is currently not radha and she has a reactive nonstress test. PLAN: At this particular time, we will send the patient home and have her restrict her activities as needed. She is instructed that should contractions return, she should come back again. She is also encouraged to continue to follow up with her OB appointment with [facility]. TD: 04/23/2020 23:48 [facility]
== END 2020-04-23 23:44 | disposition home or self-care (01) ==
LOC: WFO 22:19 → FBP 22:22 → WFO 23:44
PROVIDERS: ATTEND Obstetrics & Gynecology
DX: O09.293 Supervision of pregnancy with other poor reproductive or obstetric history, third trimester (principal); O99.413 Diseases of the circulatory system complicating pregnancy, third trimester; I48.91 Unspecified atrial fibrillation; I47.1 Supraventricular tachycardia; Z79.899 Other long term (current) drug therapy; Z3A.29 29 weeks gestation of pregnancy
CPT/HCPCS: 59025; 81001; 82731; 87086; 99213

== ENCOUNTER 2020-05-10 20:56 | Outpatient (CLI) | payer BC, OTHER ==
[2020-05-10 21:14] VITALS: BP 119/68
--- NOTE | 2020-05-12 15:45 | PROVIDER PROGRESS NOTE ---
- HPI Chief Complaint: Other Current : Current EDU 07/06/20 Gestation 31 Weeks and 6 Days 7 Para 0 Vital Signs Temperature 97.8 F 05/10/20 21:12 Heart Rate 77 05/10/20 21:12 Respiratory Rate 16 05/10/20 21:12 Blood Pressure 119/68 05/10/20 21:12 O2 Saturation 100 05/10/20 21:12 Temperature 97.8 F 05/10/20 21:12 Heart Rate 77 05/10/20 21:12 Respiratory Rate 16 05/10/20 21:12 Blood Pressure 119/68 05/10/20 21:12 O2 Saturation 100 05/10/20 21:12 - Exam 30 yo at 31+6 wgapresented with abdominal pain and then noted substernal chest pain with known hx of arrythmia. NST was performed to confirm lack of contractions EFM 135 mod danielle 15x15 accels no decels TOCO: quiet - Procedures OB Procedure Performed: NST NST Procedure: NST Procedure Start Time 22:34 Stop Time 23:20 Service Date of procedure: 05/10/20 Procedure Details: Cat I tracing - Plan Plan: Cat I tracing [place] quiet, low concern for labor Sent to ER for CP evaluation
== END 2020-05-10 21:30 | disposition home or self-care (01) ==
LOC: WFO 20:56 → FBP 20:57 → WFO 21:30
PROVIDERS: ATTEND Obstetrics & Gynecology
DX: O99.89 Other specified diseases and conditions complicating pregnancy, childbirth and the puerperium (principal); R10.9 Unspecified abdominal pain; R07.2 Precordial pain; Z86.79 Personal history of other diseases of the circulatory system; Z3A.31 31 weeks gestation of pregnancy
CPT/HCPCS: 99212

== ENCOUNTER 2020-05-10 21:32 | Emergency (ER) | payer BC, OTHER ==
--- NOTE | 2020-05-10 22:11 | ED Physician Documentation ---
PD HPI CHEST PAIN - Stated complaint Stated Complaint: CP/32WK PREG - Chief complaint Chief Complaint: Cardiac - History obtained from History obtained from: Patient - History of Present Illness Timing - onset: How many hours ago (2) Timing - onset during: Rest Timing - duration: Hours (2) Timing - details: Gradual onset, Now resolved Pain level max: 8 Pain level now: 0 Quality: Pressure Location: Substernal Radiation: No: Jaw, Neck, Back, Abdominal, Left upper extremity, Right upper extremity Improved by: Rest Associated symptoms: Nausea, Other (bernie nunez contractions). No: Shortness of air, Diaphoresis, Vomiting, Feeling faint / dizzy, General Weakness, Palpitations, Cough Similar symptoms before: Diagnosis (SVT) Recently seen: Other - Additional information Additional information: 30 y/o female who is 32 weeks began to experience frequent contractions today and was seen in the obstetrical unit with Bernie Nunez contractions and these resolved. She developed chest pain while she was there and she has been sent to the emergency department for evaluation of her chest pain. She states that she has had this similar chest pain previously with SVT. She noted that today the highest her heart rate got to was 100. She has had more heartburn than usual and her symptoms have now resolved. Review of Systems Constitutional: denies: Fever, Myalgias, Fatigue Eyes: denies: Decreased vision Ears: denies: Ear pain Nose: denies: Rhinorrhea / runny nose, Congestion Throat: denies: Sore throat Cardiac: reports: Chest pain / pressure. denies: Palpitations, Pedal edema, Calf pain Respiratory: denies: Dyspnea, Cough GI: reports: Abdominal Pain, Nausea. denies: Vomiting, Constipation, Diarrhea : reports: Frequency. 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 : None HEENT: None Psych: None Musculoskeletal: None Derm: None Other Past Medical History: SVT - Past Surgical History Past Surgical History: Yes General: Appendectomy, Other Ortho: Other /INTERNATIONAL EDITORIAL PRODUCER: LEEP (Cervical surgery), Other HEENT: Tonsil/Adenoidectomy - Present Medications Home Medications: Ambulatory Orders Medication Instructions Recorded Confirmed Fluticasone [Flonase] 1 spray NS DAILY 04/17/16 09/25/19 EPINEPHrine [Epipen 2-Michael] 0.3 mg IJ ONCE #1 auto.injct 08/03/18 09/25/19 Esomeprazole Magnesium [Nexium] 20 mg PO DAILY 09/25/19 09/25/19 Metoprolol Tartrate [Lopressor] 25 mg PO BID 05/10/20 No122/Iron/Folic Acid 1 each PO DAILY 05/10/20 05/10/20 [ Multi Tablet] - Allergies Allergies/Adverse Reactions: Allergies Allergy/AdvReac Type Severity Reaction Status Date / Time bee venom protein (honey bee) Allergy Anaphylaxis Verified 05/10/20 21:52 grass pollen Allergy Anaphylaxis Verified 05/10/20 21:52 wheat Allergy Anaphylaxis Verified 05/10/20 21:52 adhesive AdvReac Rash Verified 05/10/20 21:52 Latex, Natural Rubber AdvReac Rash Verified 05/10/20 21:52 metoprolol AdvReac Rash Verified 05/10/20 21:52 sulfamethoxazole AdvReac Hives Verified 05/10/20 21:52 [From Bactrim] trimethoprim [From Bactrim] AdvReac Hives Verified 05/10/20 21:52 - Social History Does the pt smoke?: No Smoking Status: Never smoker Does the pt drink ETOH?: No Does the pt have substance abuse?: No - Immunizations Immunizations are current?: Yes - POLST Patient has POLST: No PD ED PE NORMAL - Vitals Vital signs reviewed: Yes (normal ) - General General: Alert and oriented X 3, No acute distress, Well developed/nourished - HEENT HEENT: Atraumatic, PERRL, EOMI - Neck Neck: Supple, no meningeal sign, No bony TTP - Cardiac Cardiac: RRR, No murmur - Respiratory Respiratory: No respiratory distress, Clear bilaterally - Abdomen Abdomen: Soft, Non tender, Other (gravid uterus one hand breath below xyphoid) - Back Back: No CVA TTP, No spinal TTP - Derm Derm: Normal color, Warm and dry, No rash - Extremities Extremities: No deformity, No edema - Neuro Neuro: Alert and oriented X 3, 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, No motor deficit, No sensory deficit, Normal speech Eye Opening: Spontaneous Motor: Obeys Commands Verbal: Oriented GCS Score: 15 - Psych Psych: Normal mood, Normal affect Results - Vitals Vitals: Vital Signs - 24 hr 05/10/20 05/10/20 21:35 22:00 Temperature 36.6 C Heart Rate 77 81 Respiratory 16 17 Rate Blood Pressure 110/72 113/74 O2 Saturation 97 97 Oxygen O2 Source Room air - EKG (time done) 7 Rate: Rate (enter#) (69) Rhythm: NSR Ischemia: Normal ST segments Compare to prior EKG: Unchanged from prior EKG (SPT 03-18-2020 no changes) Computer interpretation: Agree with computer - Labs Labs: Laboratory Tests 05/10/20 05/10/20 05/10/20 22:12 22:15 22:15 WBC 12.1 H RBC 3.69 L Hgb 10.7 L Hct 32.3 L MCV 87.5 MCH 29.0 MCHC 33.1 RDW 14.2 Plt Count 282 MPV 11.2 H Neut # (Auto) 8.2 H Lymph # (Auto) 2.8 Wilbarger # (Auto) 0.7 Eos # (Auto) 0.2 Baso # (Auto) 0.1 Absolute Nucleated RBC 0.00 Nucleated RBC % 0.0 Sodium 137 Potassium 3.6 Chloride 105 Carbon Dioxide 22 Anion Gap 10.0 BUN 9 Creatinine 0.6 Estimated GFR (MDRD) 116 Glucose 93 Calcium 9.2 Total Bilirubin 0.4 AST 19 ALT 19 Alkaline Phosphatase 75 Troponin I High Sens Total Protein 6.2 L Albumin 2.8 L Globulin 3.4 Albumin/Globulin Ratio 0.8 L Lipase 30 Urine Color YELLOW Urine Clarity CLEAR Urine pH 7.0 Ur Specific Booker 1.010 Urine Protein NEGATIVE Urine Glucose (UA) NEGATIVE Urine Ketones NEGATIVE Urine Occult Blood NEGATIVE Urine Nitrite NEGATIVE Urine Bilirubin NEGATIVE Urine Urobilinogen 0.2 (NORMAL) Ur Leukocyte Esterase NEGATIVE Ur Microscopic Review NOT INDICATED Urine Culture Comments NOT INDICATED 05/10/20 22:15 WBC RBC Hgb Hct MCV MCH MCHC RDW Plt Count MPV Neut # (Auto) Lymph # (Auto) Wilbarger # (Auto) Eos # (Auto) Baso # (Auto) Absolute Nucleated RBC Nucleated RBC % Sodium Potassium Chloride Carbon Dioxide Anion Gap BUN Creatinine Estimated GFR (MDRD) Glucose Calcium Total Bilirubin AST ALT Alkaline Phosphatase Troponin I High Sens 2.7 Total Protein Albumin Globulin Albumin/Globulin Ratio Lipase Urine Color Urine Clarity Urine pH Ur Specific Booker Urine Protein Urine Glucose (UA) Urine Ketones Urine Occult Blood Urine Nitrite Urine Bilirubin Urine Urobilinogen Ur Leukocyte Esterase Ur Microscopic Review Urine Culture Comments PD MEDICAL DECISION MAKING - ED course Complexity details: reviewed old records, reviewed results, re-evaluated patient, considered differential, d/w patient ED course: 28-year-old female with excessive Bernie Nunez contractions today has developed some chest pain while she was undergoing evaluation for the contractions. This occurred without elevated heart rate and the patient was asked to come to the emergency department for evaluation. The patient herself did not seem concerned about the pain in her chest and after arrival to the emergency department her pain resolved. We were unable to interrogate it with the use of a GI cocktail her electrocardiogram was normal and unchanged from prior troponin was negative and the remainder of her work-up was unremarkable with the exception of leukocytosis with a white blood cell count 12.1.The patient felt that the work- up of chest pain was unnecessary to begin with and asked to go home. 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 Departure - Departure Disposition: 01 Home, Self Care Clinical Impression: Atypical chest pain Condition: Stable Instructions: ED Chest Pain Atypical Unkn Cause Follow-Up: ROLANDO BROWN ARNP [Primary Care Provider] -
[2020-05-10 22:22] LABS: BILIRUBIN,URINE NEGATIVE (NEGATIVE); GLUCOSE, URINE (UA) NEGATIVE (NEGATIVE); KETONES,URINE (UA) NEGATIVE (NEGATIVE); LEUKOCYTE ESTERASE, URINE NEGATIVE (NEGATIVE); NITRITE,URINE NEGATIVE (NEGATIVE); OCCULT BLOOD,URINE NEGATIVE (NEGATIVE); PROTEIN,URINE NEGATIVE (NEGATIVE); UROBILINOGEN,URINE 0.2 (NORMAL) E.U./dL (NORMAL)
[2020-05-10 22:23] LABS: BASOPHILS # (AUTO) 0.1 10^3/uL (0.0-0.1); BASOPHILS % (AUTO) 0.6 %; EOSINOPHILS # (AUTO) 0.2 10^3/uL (0.0-0.7); EOSINOPHILS % (AUTO) 1.3 %; HGB - HEMOGLOBIN 10.7 g/dL (12.0-16.0); LYMPHOCYTES # (AUTO) 2.8 10^3/uL (1.5-3.5); LYMPHOCYTES % (AUTO) 23.3 %; MEAN CORPUSCULAR HGB CONC 33.1 g/dL (32.0-36.0); MEAN CORPUSCULAR VOLUME 87.5 fL (81.0-99.0); MEAN PLATELET VOLUME 11.2 fL (7.9-10.8); MONOCYTES # (AUTO) 0.7 10^3/uL (0.0-1.0); MONOCYTES % (AUTO) 6.1 %; NEUTROPHILS # (AUTO) 8.2 10^3/uL (1.5-6.6); NEUTROPHILS % (AUTO) 67.9 %; PLT - PLATELET COUNT 282 10^3/uL (130-450); RED BLOOD COUNT 3.69 10^6/uL (4.20-5.40); RED CELL DISTRIBUTION WIDTH 14.2 % (12.0-15.0); WHITE BLOOD COUNT 12.1 x10^3/uL (4.8-10.8)
[2020-05-10 22:23] LABS: CLARITY,URINE CLEAR (CLEAR)
[2020-05-10 22:36] LABS: ALBUMIN 2.8 g/dL (3.2-5.5); ALBUMIN/GLOBULIN RATIO 0.8 (1.0-2.2); BILIRUBIN,TOTAL 0.4 mg/dL (0.2-1.0); CALCIUM 9.2 mg/dL (8.5-10.3); CREATININE 0.6 mg/dL (0.4-1.0); TOTAL PROTEIN 6.2 g/dL (6.7-8.2)
[2020-05-10 22:51] VITALS: BP 103/70
== END 2020-05-10 22:54 | disposition home or self-care (01) ==
LOC: ED 21:32
DX: O99.89 Other specified diseases and conditions complicating pregnancy, childbirth and the puerperium (principal); R07.89 Other chest pain; R10.9 Unspecified abdominal pain; R07.2 Precordial pain; Z86.79 Personal history of other diseases of the circulatory system; Z3A.31 31 weeks gestation of pregnancy
CPT/HCPCS: 36415; 80053; 81001; 81003; 83690; 84484; 85025; 87086; 93005; 99212; 99283; 99284

== ENCOUNTER 2020-05-19 09:50 | Outpatient (CLI) | payer BC, OTHER ==
[2020-05-19 10:08] VITALS: BP 105/58
--- NOTE | 2020-05-19 18:04 | PROCEDURE REPORT ---
- HPI Diagnosis/Indication for NST: Other (heart condition and recurrent loss) Current EDU 07/06/20 Gestation 33 Weeks and 1 Days 7 Para 0 Vital Signs Temperature 97.9 F 05/19/20 10:07 Heart Rate 76 05/19/20 10:07 Respiratory Rate 16 05/19/20 10:07 Blood Pressure 105/58 L 05/19/20 10:07 O2 Saturation 69 L 05/19/20 10:07 Temperature 97.9 F 05/19/20 10:07 Heart Rate 76 05/19/20 10:07 Respiratory Rate 16 05/19/20 10:07 Blood Pressure 105/58 L 05/19/20 10:07 O2 Saturation 69 L 05/19/20 10:07 - NST Procedure NST Procedure Start Date 05/19/20 Start Time 10:00 Stop Time 10:24 Vibroacoustic Stimulation Used No Patient States Movement Yes EFM 135 mod danielle 15x15 accels no decels TOCO quiet - Results and Plan Plan: Cat I tracing Cont with routine OB care and twice weekly NST
== END 2020-05-19 10:35 | disposition home or self-care (01) ==
LOC: WFO 09:50 → FBP 09:51 → WFO 10:35
PROVIDERS: ATTEND Obstetrics & Gynecology
DX: O09.293 Supervision of pregnancy with other poor reproductive or obstetric history, third trimester (principal); O26.23 Pregnancy care for patient with recurrent pregnancy loss, third trimester; O99.413 Diseases of the circulatory system complicating pregnancy, third trimester; I51.9 Heart disease, unspecified; Z3A.33 33 weeks gestation of pregnancy
CPT/HCPCS: 59025

== ENCOUNTER 2020-05-30 20:10 | Outpatient (CLI) | payer BC, OTHER ==
[2020-05-30 20:40] VITALS: BP 105/59
--- NOTE | 2020-05-30 21:52 | PROCEDURE REPORT ---
- HPI Diagnosis/Indication for NST: labor Vital Signs Temperature 98.2 F 05/30/20 20:25 Respiratory Rate 18 05/30/20 20:25 Blood Pressure 105/59 L 05/30/20 20:25 O2 Saturation 98 05/30/20 20:25 Temperature 98.2 F 05/30/20 20:25 Heart Rate Respiratory Rate 18 05/30/20 20:25 Blood Pressure 105/59 L 05/30/20 20:25 O2 Saturation 98 05/30/20 20:25 - NST Procedure NST Procedure Start Time 10:00 Stop Time 10:24 EFM 155 mod danielle 15x15 accels no decels TOCO: Quiet - Results and Plan Findings/Impression: 30 yo at 34+5 wga here wfor labor assessment Reporting intermittent back pain. No LOF or VB. +FM CAT I tracing No evidence of contractions on monitor. DC to home with warning signs Fu with routine OB care Final DX: False labor
== END 2020-05-30 20:55 | disposition home or self-care (01) ==
LOC: WFO 20:10 → FBP 20:12 → WFO 20:55
PROVIDERS: ATTEND Obstetrics & Gynecology
DX: O47.03 False labor before 37 completed weeks of gestation, third trimester (principal); Z3A.34 34 weeks gestation of pregnancy
CPT/HCPCS: 59025; 99211

== ENCOUNTER 2020-06-04 11:05 | Outpatient (CLI) | payer BC, OTHER ==
[2020-06-04 11:21] VITALS: BP 100/58
--- NOTE | 2020-06-04 13:22 | PROCEDURE REPORT ---
- HPI Diagnosis/Indication for NST: Other (Cardiac condition) Current EDU 07/06/20 Gestation 35 Weeks and 3 Days 7 Para 0 Vital Signs Temperature 97.9 F 06/04/20 11:19 Heart Rate 76 06/04/20 11:19 Respiratory Rate 18 06/04/20 11:19 Blood Pressure 100/58 L 06/04/20 11:19 O2 Saturation 100 06/04/20 11:19 Temperature 97.9 F 06/04/20 11:19 Heart Rate 76 06/04/20 11:19 Respiratory Rate 18 06/04/20 11:19 Blood Pressure 100/58 L 06/04/20 11:19 O2 Saturation 100 06/04/20 11:19 - NST Procedure NST Procedure Start Date 06/04/20 Start Time 11:18 Stop Time 11:48 Vibroacoustic Stimulation Used No Patient States Movement Yes - Results and Plan Findings/Impression: Category 1 NST Plan: Routine per her OB provider
== END 2020-06-04 11:45 | disposition home or self-care (01) ==
LOC: WFO 11:05 → FBP 11:06 → WFO 11:45
PROVIDERS: ATTEND Obstetrics & Gynecology
DX: O99.413 Diseases of the circulatory system complicating pregnancy, third trimester (principal); I51.9 Heart disease, unspecified; Z3A.35 35 weeks gestation of pregnancy
CPT/HCPCS: 59025

== ENCOUNTER 2020-06-07 13:42 | Outpatient (CLI) | payer BC, OTHER ==
[2020-06-07 15:14] LABS: HGB - HEMOGLOBIN 10.4 g/dL (12.0-16.0); MEAN CORPUSCULAR VOLUME 87.6 fL (81.0-99.0); MEAN PLATELET VOLUME 11.3 fL (7.9-10.8); RED BLOOD COUNT 3.71 10^6/uL (4.20-5.40); RED CELL DISTRIBUTION WIDTH 14.3 % (12.0-15.0); WHITE BLOOD COUNT 9.2 x10^3/uL (4.8-10.8)
[2020-06-07 15:20] LABS: ALBUMIN 2.8 g/dL (3.2-5.5); ALBUMIN/GLOBULIN RATIO 0.8 (1.0-2.2); BILIRUBIN,TOTAL 0.3 mg/dL (0.2-1.0); CALCIUM 9.6 mg/dL (8.5-10.3); CREATININE 0.7 mg/dL (0.4-1.0); TOTAL PROTEIN 6.3 g/dL (6.7-8.2)
[2020-06-07 15:24] VITALS: BP 104/53
--- NOTE | 2020-06-07 16:54 | Ultrasound Report ---
PROCEDURE: OB Limited INDICATIONS: Decreased movement OUTSIDE/PRIOR DATING DATA: Last menstrual period (LMP): Not available. LMP-based estimated date of delivery (GEETA): Not available. First dating scan (date and location): 12/16/2019. Estimated date of delivery (GEETA) from first dating scan: 07/07/2020. TECHNIQUE: Real-time scanning was performed of the fetus, with image documentation. Endovaginal scanning: Not needed for this study. COMPARISON: Prior OB ultrasound 03/31/2020, 03/21/2020, 01/03/2020 FINDINGS: A single living intrauterine gestation is present. Presentation: Transverse head maternal right, spine up. Placenta: Placental position is posterior, without previa. Amniotic fluid index: 10.7 cm, 21.3 percentile for gestational age. heart rate: 162 beats per minutes. Maternal cervical canal: 5.4 cm long; normal length is 2.5 cm or more. Estimated gestational age from initial scan: 35 weeks 5 days. IMPRESSION: Single living intrauterine gestation in transverse presentation at this time, with poste rior placenta and normal amniotic fluid volume of 10.9 cm. Reviewed by: Ricardo Quinonez MD on 06/07/2020 4:53 PM PDT Approved by: Ricadro Quinonez MD on 06/07/2020 4:53 PM PDT Station ID: [id number]
--- NOTE | 2020-06-07 17:30 | PROCEDURE REPORT ---
- HPI Diagnosis/Indication for NST: Decreased movement Current EDU 07/07/20 Gestation 35 Weeks and 5 Days 7 Para 1 Vital Signs Temperature 98.2 F 06/07/20 13:53 Heart Rate 54 L 06/07/20 13:53 Respiratory Rate 19 06/07/20 13:53 Blood Pressure 102/63 06/07/20 13:53 O2 Saturation 100 06/07/20 13:53 Temperature 98.2 F 06/07/20 13:53 Heart Rate 42 L 06/07/20 15:18 Respiratory Rate 16 06/07/20 15:18 Blood Pressure 104/53 L 06/07/20 15:18 O2 Saturation 100 06/07/20 15:18 - NST Procedure NST Procedure Start Date 06/07/20 Start Time 13:47 Stop Time 14:47 Vibroacoustic Stimulation Used No Patient States Movement No: no movement the lasst 12 hours - Results and Plan Findings/Impression: CC: decreased movement HPI: decreased FM today. NO VB, no LOF, no UC. Having intermittent stabbing chest pain, shortness of breath, and feeling faint while walking and sitting. PMH: A.fib, obesity, history of SVT, recurrent loss (normal karyotype and hypercoag panel) , hx of placental abruption in prior preg, hx of JOSE 3 PSH: LEEP 2006, LSC for endo x2 Allergies: multiple see list Meds: metroprolol 25mg tid, melatonian, zyrtec, pepcid, flonase, nexium OB: care at , delivery planned there for 39w IOL. Normal anatomy and growth. GEETA 07/07/20 SH: no t/e/d. FOB is [place] O: Sat 99% on RA, RR 14, HR 40-50s, BP 100/60s NST: 130, mod LTV, accels present, one small variable. [place] neg. EKG sinus arrhythmia read by ER Dr. Mendes Tele: HR 40s-50s CMP: normal CBC: Hct 32 Troponin: normal DEIRDRE: 10 Transverse presentation A/P:30yo at 35w5d, care at the , here for decreased momement. Normal NST and DEIRDRE and pt feeling normal movement now. Reassured. Continue FKC. Chest pain, SOB, and feeling faint: has had persistent intermittent sx this entire and this episode feels the same as others. Bradycardia and borderline hypotension are present. D/w [facility], will drop metoprolol from tid to q12h. She has had HR there in high 40s to 50s during her routine OB visits. EKG normal, lytes normal, troponin neg, pt without current CP or SOB. Pt will check and log HR until her visit. F/u PRN worsening or different symptoms. Anemia Hct 32, advised Fe qo day Transverse presentation: pt to let her primary OB know this week. Has been vertex in the past.
== END 2020-06-07 15:57 | disposition home or self-care (01) ==
LOC: WFO 13:42 → FBP 13:44 → WFO 15:57
PROVIDERS: ATTEND Obstetrics & Gynecology
DX: O36.8130 Decreased fetal movements, third trimester, not applicable or unspecified (principal); Z3A.35 35 weeks gestation of pregnancy; O99.013 Anemia complicating pregnancy, third trimester; D64.9 Anemia, unspecified; O32.2XX0 Maternal care for transverse and oblique lie, not applicable or unspecified; O99.89 Other specified diseases and conditions complicating pregnancy, childbirth and the puerperium; R07.9 Chest pain, unspecified; R06.02 Shortness of breath; R00.1 Bradycardia, unspecified; I95.9 Hypotension, unspecified; O09.293 Supervision of pregnancy with other poor reproductive or obstetric history, third trimester; O26.23 Pregnancy care for patient with recurrent pregnancy loss, third trimester
CPT/HCPCS: 59025; 76815; 80053; 84484; 85027; 93005; 93041; 99214

== ENCOUNTER 2020-11-07 19:25 | Emergency (ER) | payer BC, OTHER ==
--- NOTE | 2020-11-07 19:47 | ED Physician Documentation ---
PD HPI ABD PAIN - Stated complaint Stated Complaint: FEMALE - Chief complaint Chief Complaint: Abd Pain - History obtained from History obtained from: Patient - Additional information Additional information: This young lady with history of kidney stones x2, conservatively managed and tubal ligation presents with waxing and waning left flank pain for a month which tonight is associated with dysuria and burning. No fevers. No nausea. Declines pain medication on initial evaluation. 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 : None HEENT: None Psych: None Musculoskeletal: None Derm: None - Past Surgical History Past Surgical History: Yes General: Appendectomy, Other Ortho: Other /VALIDATION ANALYST: LEEP (Cervical surgery), Other HEENT: Tonsil/Adenoidectomy - Present Medications Home Medications: Ambulatory Orders Medication Instructions Recorded Confirmed EPINEPHrine [Epipen 2-Michael] 0.3 mg IJ ONCE #1 auto.injct 08/03/18 11/07/20 Esomeprazole Magnesium [Nexium] 20 mg PO DAILY 09/25/19 11/07/20 - Allergies Allergies/Adverse Reactions: Allergies Allergy/AdvReac Type Severity Reaction Status Date / Time bee venom protein (honey bee) Allergy Anaphylaxis Verified 05/10/20 21:52 grass pollen Allergy Anaphylaxis Verified 05/10/20 21:52 wheat Allergy Anaphylaxis Verified 05/10/20 21:52 adhesive AdvReac Rash Verified 05/10/20 21:52 Latex, Natural Rubber AdvReac Rash Verified 05/10/20 21:52 metoprolol AdvReac Rash Verified 05/10/20 21:52 sulfamethoxazole AdvReac Hives Verified 05/10/20 21:52 [From Bactrim] trimethoprim [From Bactrim] AdvReac Hives Verified 05/10/20 21:52 - Social History Does the pt smoke?: No Smoking Status: Never smoker Does the pt drink ETOH?: No Does the pt have substance abuse?: No - Immunizations Immunizations are current?: Yes - POLST Patient has POLST: No PD ED PE NORMAL - Vitals Vital signs reviewed: Yes - General General: Alert and oriented X 3, No acute distress - HEENT HEENT: PERRL, EOMI - Neck Neck: Supple, no meningeal sign, No bony TTP - Cardiac Cardiac: RRR, No murmur - Respiratory Respiratory: No respiratory distress, Clear bilaterally - Abdomen Abdomen: Soft, Non tender - Back Back: No spinal TTP, Other (Very mild left CVA tenderness) - Derm Derm: No rash - Extremities Extremities: No edema, No calf tenderness / cord - Neuro Neuro: Alert and oriented X 3, Normal speech Results - Vitals Vitals: Vital Signs - 24 hr 11/07/20 11/07/20 19:35 19:49 Temperature 36.5 C Heart Rate 51 L 60 Respiratory 18 16 Rate Blood Pressure 137/86 H 114/88 H O2 Saturation 98 100 Oxygen O2 Source Room air - Labs Labs: Laboratory Tests 11/07/20 19:50 Urine Color YELLOW Urine Clarity CLEAR Urine pH 5.5 Ur Specific [place] <=1.005 Urine Protein NEGATIVE Urine Glucose (UA) NEGATIVE Urine Ketones NEGATIVE Urine Occult Blood NEGATIVE Urine Nitrite NEGATIVE Urine Bilirubin NEGATIVE Urine Urobilinogen 0.2 (NORMAL) Ur Leukocyte Esterase NEGATIVE Ur Microscopic Review NOT INDICATED Urine Culture Comments NOT INDICATED Urine HCG, Qual NEGATIVE PD MEDICAL DECISION MAKING - ED course ED course: 30-year-old woman with subacute flank pain, history of renal colic and now some symptoms concerning for infection in the setting of a completely normal urine. Discussed CT scanning and she declined preferring watchful waiting. Departure - Departure Disposition: 01 Home, Self Care Clinical Impression: Flank pain Condition: Good Record reviewed to determine appropriate education?: Yes Instructions: ED Abdominal Pain Unkn Cause Comments: Your urine was normal today without evidence of any infection or blood. Return for new or worsening symptoms or if the pain is uncontrolled with [id number] medications. Follow-up with your doctor, regardless of improvement or not.
[2020-11-07 19:58] LABS: BILIRUBIN,URINE NEGATIVE (NEGATIVE); GLUCOSE, URINE (UA) NEGATIVE (NEGATIVE); KETONES,URINE (UA) NEGATIVE (NEGATIVE); LEUKOCYTE ESTERASE, URINE NEGATIVE (NEGATIVE); NITRITE,URINE NEGATIVE (NEGATIVE); OCCULT BLOOD,URINE NEGATIVE (NEGATIVE); PH,URINE 5.5 PH (5.0-7.5); PROTEIN,URINE NEGATIVE (NEGATIVE); UROBILINOGEN,URINE 0.2 (NORMAL) E.U./dL (NORMAL)
[2020-11-07 20:02] LABS: CLARITY,URINE CLEAR (CLEAR); HCG UR QUAL NEGATIVE
[2020-11-07 20:45] VITALS: BP 108/76
== END 2020-11-07 21:00 | disposition home or self-care (01) ==
LOC: ED 19:25
DX: R10.32 Left lower quadrant pain (principal)
CPT/HCPCS: 81001; 81003; 81025; 87086; 99283; 99284

== ENCOUNTER 2021-02-18 21:00 | Emergency (ER) | payer BC, OTHER ==
[2021-02-18 21:23] LABS: BILIRUBIN,URINE NEGATIVE (NEGATIVE); GLUCOSE, URINE (UA) NEGATIVE (NEGATIVE); KETONES,URINE (UA) NEGATIVE (NEGATIVE); LEUKOCYTE ESTERASE, URINE NEGATIVE (NEGATIVE); NITRITE,URINE NEGATIVE (NEGATIVE); OCCULT BLOOD,URINE NEGATIVE (NEGATIVE); PH,URINE 6.5 PH (5.0-7.5); PROTEIN,URINE NEGATIVE (NEGATIVE); UROBILINOGEN,URINE 0.2 (NORMAL) E.U./dL (NORMAL)
[2021-02-18 21:24] LABS: CLARITY,URINE CLEAR (CLEAR); HCG UR QUAL NEGATIVE
[2021-02-18 21:26] LABS: BASOPHILS # (AUTO) 0.2 10^3/uL (0.0-0.1); BASOPHILS % (AUTO) 1.2 %; EOSINOPHILS # (AUTO) 0.1 10^3/uL (0.0-0.7); EOSINOPHILS % (AUTO) 1.1 %; HCT - HEMATOCRIT 41.2 % (37.0-47.0); HGB - HEMOGLOBIN 13.4 g/dL (12.0-16.0); LYMPHOCYTES # (AUTO) 3.6 10^3/uL (1.5-3.5); LYMPHOCYTES % (AUTO) 29.8 %; MEAN CORPUSCULAR HEMOGLOBIN 27.8 pg (27.0-31.0); MEAN CORPUSCULAR HGB CONC 32.5 g/dL (32.0-36.0); MEAN CORPUSCULAR VOLUME 85.5 fL (81.0-99.0); MEAN PLATELET VOLUME 11.3 fL (7.9-10.8); MONOCYTES # (AUTO) 0.8 10^3/uL (0.0-1.0); MONOCYTES % (AUTO) 6.2 %; NEUTROPHILS # (AUTO) 7.4 10^3/uL (1.5-6.6); NEUTROPHILS % (AUTO) 61.3 %; PLT - PLATELET COUNT 353 10^3/uL (130-450); RED BLOOD COUNT 4.82 10^6/uL (4.20-5.40); RED CELL DISTRIBUTION WIDTH 13.5 % (12.0-15.0); WHITE BLOOD COUNT 12.1 x10^3/uL (4.8-10.8)
[2021-02-18 21:33] LABS: ALBUMIN 4.4 g/dL (3.2-5.5); ALBUMIN/GLOBULIN RATIO 1.5 (1.0-2.2); BILIRUBIN,TOTAL 0.5 mg/dL (0.2-1.0); TOTAL PROTEIN 7.4 g/dL (6.7-8.2)
--- NOTE | 2021-02-18 21:42 | ED Physician Documentation ---
PD HPI ABD PAIN - Stated complaint Stated Complaint: L SIDE PX - Chief complaint Chief Complaint: Abd Pain - History obtained from History obtained from: Patient - History of Present Illness Timing - onset: Enter time (17:00), Today Timing - details: Abrupt onset Pain level now: 1 Quality: Pain Location: LUQ Radiation: Left flank Improved by: Other (no ameliorating factors) Worsened by: Other (no exacerbating factors) Associated symptoms: Nausea, Melena (dark black stool x 1 week). No: Fever, Vomiting, Diarrhea, Constipation Recently seen: Not recently seen - Additional information Additional information: patient c/o LUQ abdominal pain radiating to left flank, onset 5 pm today while at rest at work. Nausea but no vomiting. She also notes 1 week of dark black stool. She feels these symptoms are similar to previous history of bleeding gastric ulcer Review of Systems Constitutional: denies: Fever, Chills, Sweats Cardiac: reports: Reviewed and negative Respiratory: reports: Reviewed and negative GI: reports: Abdominal Pain, Nausea, Bloody / black stool. 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 : None HEENT: None Psych: None Musculoskeletal: None Derm: None - Past Surgical History Past Surgical History: Yes General: Appendectomy, Other Ortho: Other /VALET CASHIER: LEEP (Cervical surgery), Other HEENT: Tonsil/Adenoidectomy - Present Medications Home Medications: Ambulatory Orders Medication Instructions Recorded Confirmed EPINEPHrine [Epipen 2-Michael] 0.3 mg IJ ONCE #1 auto.injct 08/03/18 02/18/21 Esomeprazole Magnesium [Nexium] 20 mg PO DAILY 09/25/19 02/18/21 Lidocaine Viscous 2% [Xylocaine 5 - 10 ml MM Q4H PRN #100 ml 02/18/21 Viscous 2%] Sucralfate [Carafate] 1 gm PO ACHS #60 tablet 02/18/21 - Allergies Allergies/Adverse Reactions: Allergies Allergy/AdvReac Type Severity Reaction Status Date / Time bee venom protein (honey bee) Allergy Anaphylaxis Verified 02/18/21 21:03 grass pollen Allergy Anaphylaxis Verified 02/18/21 21:03 wheat Allergy Anaphylaxis Verified 02/18/21 21:03 adhesive AdvReac Rash Verified 02/18/21 21:03 Latex, Natural Rubber AdvReac Rash Verified 02/18/21 21:03 metoprolol AdvReac Rash Verified 02/18/21 21:03 sulfamethoxazole AdvReac Hives Verified 02/18/21 21:03 [From Bactrim] trimethoprim [From Bactrim] AdvReac Hives Verified 02/18/21 21:03 - Social History Does the pt smoke?: No Smoking Status: Never smoker Does the pt drink ETOH?: No Does the pt have substance abuse?: No - Immunizations Immunizations are current?: Yes - POLST Patient has POLST: No PD ED PE NORMAL - Vitals Vital signs reviewed: Yes - General General: Alert and oriented X 3, No acute distress, Well developed/nourished - Cardiac Cardiac: RRR, No murmur - Respiratory Respiratory: No respiratory distress, Clear bilaterally - Abdomen Abdomen: Normal bowel sounds, Soft, Non tender, Non distended - Back Back: No CVA TTP - Derm Derm: Normal color, Warm and dry, No rash Results - Vitals Vitals: Vital Signs - 24 hr 02/18/21 02/18/21 02/18/21 21:04 21:18 21:59 Temperature 36.8 C Heart Rate 74 Respiratory 19 16 16 Rate Blood Pressure 147/91 H O2 Saturation 100 02/18/21 02/18/21 02/18/21 22:29 22:41 22:52 Temperature 36.9 C Heart Rate 52 L Respiratory 16 16 16 Rate Blood Pressure 123/77 O2 Saturation 98 Oxygen O2 Source Room air - Labs Labs: Microbiology 02/18/21 21:55 Occult Blood - Final Stool Laboratory Tests 02/18/21 02/18/21 02/18/21 21:10 21:15 21:15 WBC 12.1 H RBC 4.82 Hgb 13.4 Hct 41.2 MCV 85.5 MCH 27.8 MCHC 32.5 RDW 13.5 Plt Count 353 MPV 11.3 H Neut # (Auto) 7.4 H Lymph # (Auto) 3.6 H [place] # (Auto) 0.8 Eos # (Auto) 0.1 Baso # (Auto) 0.2 H Absolute Nucleated RBC 0.00 Nucleated RBC % 0.0 Sodium 138 Potassium 4.0 Chloride 102 Carbon Dioxide 25 Anion Gap 11.0 BUN 14 Creatinine 1.0 Estimated GFR (MDRD) 64 L Glucose 109 H Calcium 10.0 Total Bilirubin 0.5 AST 19 ALT 16 Alkaline Phosphatase 62 Total Protein 7.4 Albumin 4.4 Globulin 3.0 Albumin/Globulin Ratio 1.5 Lipase 27 Urine Color YELLOW Urine Clarity CLEAR Urine pH 6.5 Ur Specific [place] <=1.005 Urine Protein NEGATIVE Urine Glucose (UA) NEGATIVE Urine Ketones NEGATIVE Urine Occult Blood NEGATIVE Urine Nitrite NEGATIVE Urine Bilirubin NEGATIVE Urine Urobilinogen 0.2 (NORMAL) Ur Leukocyte Esterase NEGATIVE Ur Microscopic Review NOT INDICATED Urine Culture Comments NOT INDICATED Urine HCG, Qual NEGATIVE PD MEDICAL DECISION MAKING - ED course Complexity details: reviewed old records, reviewed results, re-evaluated patient, considered differential, d/w patient ED course: c/o LUQ and left flank pain since 5 PM tonight, as well as 1 week of dark black stool. Her exam, including abdominal exam, is unremarkable. Her abdomen is nontender, nondistended. Her test results including CBC and UA are unremarkable (minimal leukocytosis noted, WBC 12.1). No hematuria; doubt renal colic. Her guaiac result is negative for occult blood although there was no visible stool on the glove. Her h/h is normal. Emergent imaging is not indicated at this time, based on H+P and results of blood tests/UA. She is given maalox/viscous lidocaine and reports improvement with this. Also given carafate, discharged with rx for carafate and viscous lidocaine, instructed to follow up with her primary care provider, return if symptoms worsen Departure - Departure Disposition: 01 Home, Self Care Clinical Impression: Flank pain Condition: Good Instructions: ED Flank Pain Uncertain Cause Follow-Up: ROLANDO BROWN ARNP [Primary Care Provider] - (3-5 days) Prescriptions: Sucralfate [Carafate] 1 gm PO ACHS #60 tablet Lidocaine Viscous 2% [Xylocaine Viscous 2%] 5 - 10 ml MM Q4H PRN #100 ml PRN Reason: Abdominal Pain Discharge Date/Time: 02/18/21 22:57
[2021-02-18] MEDS ORDERED: SUCRALFATE 1 GM/10 ML UDC PO STA (22:01)
[2021-02-18] MEDS ORDERED: LIDOCAINE VISCOUS 2% 15 ML UDC MM STA (22:01)
[2021-02-18] MEDS ORDERED: MAG HYDROX/AL HYDROX/SIMETH 30 ML UDC PO STA (22:01)
[2021-02-18 22:42] VITALS: BP 123/77
--- OUTSIDE RECORDS SUMMARY | 2021-02-23 02:22 | EXTERNAL MEDICAL SUMMARY RPT | Continuity of Care Document ---
:1990 Demographics Phone Unavailable Preferred Language Unknown Marital Status Unknown Mosque Affiliation Unknown Race Unknown Ethnic Group Unknown Author Organization [place] Address [address] [phone] Phone Social History date description facility [phone]
== END 2021-02-18 22:57 | disposition home or self-care (01) ==
LOC: ED 21:00
DX: R10.12 Left upper quadrant pain (principal); I48.91 Unspecified atrial fibrillation
CPT/HCPCS: 36415; 80053; 81003; 81025; 82272; 83690; 85025; 99283; 99284; A9270; 81001; 87086

== ENCOUNTER 2021-03-05 23:29 | Emergency (ER) | payer OTHER ==
--- OUTSIDE RECORDS SUMMARY | 2021-03-05 23:33 | EXTERNAL MEDICAL SUMMARY RPT | Continuity of Care Document ---
:1990 Demographics Phone Unavailable Preferred Language Unknown Marital Status Unknown Buddhism Affiliation Unknown Race Unknown Ethnic Group Unknown Author Organization [place] Address [address] [id number] Phone Social History date description facility [phone]
--- OUTSIDE RECORDS SUMMARY | 2021-03-05 23:36 | EXTERNAL MEDICAL SUMMARY RPT | Continuity of Care Document ---
:1990 Demographics Phone Unavailable Preferred Language Unknown Marital Status Unknown Temple Affiliation Unknown Race Unknown Ethnic Group Unknown Author Organization [place] Address [address] [phone] Phone Social History date description facility [phone]
--- NOTE | 2021-03-05 23:37 | ED Physician Documentation ---
PD HPI CHEST PAIN - Stated complaint Stated Complaint: HIGH BP, IRREGULAR HEART RATE - History obtained from History obtained from: Patient - History of Present Illness Timing - onset: Today Timing - onset during: Rest Timing - duration: Hours (She states she has a history of A. fib and SVT in the past. Has metoprolol as needed if feeling irregularity. Her watch does record heart rate and it had not shown tachycardia. However she was feeling palpitations. Presented for eval. Feeling lightheaded at times. Took BP and it was elevated.) Timing - details: Waxing and waning Quality: No: Pressure, Tightness Location: Other (no chest pain nor dyspnea. Feeling lighteaded at times. BP check with that showed somewhat elevated at 150s systolic. HR has been consistently in 40s-50s per her watch. History of HR in the 40-50 range.) Improved by: No: Rest Worsened by: No: Exertion, Movement Associated symptoms: Feeling faint / dizzy (at times), Palpitations. No: Shortness of air, Nausea Similar symptoms before: Diagnosis (has had episodes of SVT/atrial fib in the past but none since she was last year.) Recently seen: Not recently seen Review of Systems Constitutional: denies: Fever, Chills Nose: denies: Rhinorrhea / runny nose, Congestion Throat: denies: Sore throat Cardiac: reports: Palpitations. 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 : None HEENT: None Psych: None Musculoskeletal: None Derm: None - Past Surgical History Past Surgical History: Yes General: Appendectomy, Other Ortho: Other /FIXED INCOME MANAGER: LEEP (Cervical surgery), Other HEENT: Tonsil/Adenoidectomy - Present Medications Home Medications: Ambulatory Orders Medication Instructions Recorded Confirmed EPINEPHrine [Epipen 2-Michael] 0.3 mg IJ ONCE #1 auto.injct 08/03/18 03/05/21 Esomeprazole Magnesium [Nexium] 20 mg PO DAILY 09/25/19 03/05/21 Lidocaine Viscous 2% [Xylocaine 5 - 10 ml MM Q4H PRN #100 ml 02/18/21 03/05/21 Viscous 2%] Sucralfate [Carafate] 1 gm PO ACHS #60 tablet 02/18/21 03/05/21 Metoprolol Succinate [Toprol Xl] 25 mg PO BID 03/05/21 03/05/21 - Allergies Allergies/Adverse Reactions: Allergies Allergy/AdvReac Type Severity Reaction Status Date / Time bee venom protein (honey bee) Allergy Anaphylaxis Verified 03/05/21 23:38 grass pollen Allergy Anaphylaxis Verified 03/05/21 23:38 wheat Allergy Anaphylaxis Verified 03/05/21 23:38 adhesive AdvReac Rash Verified 03/05/21 23:38 Latex, Natural Rubber AdvReac Rash Verified 03/05/21 23:38 metoprolol AdvReac Rash Verified 03/05/21 23:38 sulfamethoxazole AdvReac Hives Verified 03/05/21 23:38 [From Bactrim] trimethoprim [From Bactrim] AdvReac Hives Verified 03/05/21 23:38 - Social History Does the pt smoke?: No Smoking Status: Never smoker Does the pt drink ETOH?: No Does the pt have substance abuse?: No - Immunizations Immunizations are current?: Yes - POLST Patient has POLST: No PD ED PE NORMAL - Vitals Vital signs reviewed: Yes - General General: Alert and oriented X 3, No acute distress, Well developed/nourished - HEENT HEENT: Pharynx benign - Neck Neck: Supple, no meningeal sign, No adenopathy - Cardiac Cardiac: No murmur. No: RRR (bradycardic but regular) - Respiratory Respiratory: Clear bilaterally - Abdomen Abdomen: Soft, Non tender - Derm Derm: Normal color, Warm and dry - Extremities Extremities: No tenderness to palpate, No edema, No calf tenderness / cord - Neuro Neuro: Alert and oriented X 3, No motor deficit, Normal speech Results - Vitals Vitals: Vital Signs - 24 hr 03/05/21 03/05/21 03/06/21 23:40 23:44 00:14 Temperature 37.1 C 37.1 C 37.1 C Heart Rate 44 L 44 L 47 L Respiratory 16 16 16 Rate Blood Pressure 141/88 H 141/83 H 109/70 O2 Saturation 100 100 100 03/06/21 00:27 Temperature 37.1 C Heart Rate 47 L Respiratory 16 Rate Blood Pressure 109/70 O2 Saturation 100 Oxygen O2 Source Room air - EKG (time done) 23:40 Rate: Rate (enter#) (54) Rhythm: Sinus bradycardia [place]: Normal Intervals: Normal [place] QRS: Normal Ischemia: Normal ST segments. No: ST elevation c/w ischemia, ST depression - Tele (time rhythm occurred) monitor Telemetry / rhythm strip: Sinus bradycardia (ranging from 40-52, which patient says is typical for her. No ectopy noted here. ) - Labs Labs: Laboratory Tests 03/05/21 03/05/21 23:53 23:53 WBC 10.4 RBC 4.62 Hgb 13.2 Hct 39.8 MCV 86.1 MCH 28.6 MCHC 33.2 RDW 14.2 Plt Count 341 MPV 12.2 H Neut # (Auto) 5.3 Lymph # (Auto) 4.0 H [place] # (Auto) 0.7 Eos # (Auto) 0.2 Baso # (Auto) 0.1 Absolute Nucleated RBC 0.00 Nucleated RBC % 0.0 Sodium 138 Potassium 3.5 Chloride 105 Carbon Dioxide 25 Anion Gap 8.0 BUN 10 Creatinine 0.8 Estimated GFR (MDRD) 83 L Glucose 111 H Calcium 9.0 Magnesium 2.0 Total Bilirubin 0.6 AST 19 ALT 18 Alkaline Phosphatase 72 Total Protein 6.9 Albumin 4.2 Globulin 2.7 Albumin/Globulin Ratio 1.6 Lipase 29 PD MEDICAL DECISION MAKING - ED course Complexity details: reviewed results, re-evaluated patient, considered differential (no actopy noted here. Bradycardic which patient says is typical for her without beta blockers and just has the metoprolol PRN. BP is not low with this. ), d/w patient Departure - Departure Disposition: 01 Home, Self Care Clinical Impression: Chronic sinus bradycardia, Palpitations Condition: Stable Record reviewed to determine appropriate education?: Yes Comments: Your blood count and basic chemistry panel is normal here. Your potassium is on the low end of normal so you could consider some supplement of potassium. Your monitor is showing the bradycardia without any irregular beats at this time. Follow-up with your primary care and/or cardiology if persistent feeling of ext ra beats or palpitations or irregularity. Stay well-hydrated.
[2021-03-06 00:10] LABS: BASOPHILS # (AUTO) 0.1 10^3/uL (0.0-0.1); BASOPHILS % (AUTO) 1.1 %; EOSINOPHILS # (AUTO) 0.2 10^3/uL (0.0-0.7); EOSINOPHILS % (AUTO) 2.3 %; HCT - HEMATOCRIT 39.8 % (37.0-47.0); HGB - HEMOGLOBIN 13.2 g/dL (12.0-16.0); LYMPHOCYTES % (AUTO) 38.7 %; MEAN CORPUSCULAR HEMOGLOBIN 28.6 pg (27.0-31.0); MEAN CORPUSCULAR HGB CONC 33.2 g/dL (32.0-36.0); MEAN CORPUSCULAR VOLUME 86.1 fL (81.0-99.0); MEAN PLATELET VOLUME 12.2 fL (7.9-10.8); MONOCYTES # (AUTO) 0.7 10^3/uL (0.0-1.0); MONOCYTES % (AUTO) 6.8 %; NEUTROPHILS # (AUTO) 5.3 10^3/uL (1.5-6.6); NEUTROPHILS % (AUTO) 50.8 %; PLT - PLATELET COUNT 341 10^3/uL (130-450); RED BLOOD COUNT 4.62 10^6/uL (4.20-5.40); RED CELL DISTRIBUTION WIDTH 14.2 % (12.0-15.0); WHITE BLOOD COUNT 10.4 x10^3/uL (4.8-10.8)
[2021-03-06 00:19] LABS: ALBUMIN 4.2 g/dL (3.2-5.5); ALBUMIN/GLOBULIN RATIO 1.6 (1.0-2.2); BILIRUBIN,TOTAL 0.6 mg/dL (0.2-1.0); CREATININE 0.8 mg/dL (0.4-1.0); POTASSIUM 3.5 mmol/L (3.5-5.0); TOTAL PROTEIN 6.9 g/dL (6.7-8.2)
[2021-03-06 00:27] VITALS: BP 109/70
== END 2021-03-06 00:44 | disposition home or self-care (01) ==
LOC: ED 23:29
DX: R00.2 Palpitations (principal); R00.1 Bradycardia, unspecified; I48.91 Unspecified atrial fibrillation; I47.1 Supraventricular tachycardia; R03.0 Elevated blood-pressure reading, without diagnosis of hypertension
CPT/HCPCS: 36415; 80053; 83690; 83735; 85025; 93005; 99284

== ENCOUNTER 2021-04-25 10:00 | Outpatient (CLI) | payer OTHER ==
--- NOTE | 2021-04-25 15:45 | Ultrasound Report ---
PROCEDURE: Pelvic w/Transvaginal INDICATIONS: Menorrhagia. History of recent endometrial biopsy. TECHNIQUE: Real-time scanning was performed of the pelvic organs, with image documentation. Additional endovagi nal scanning was necessary due to incomplete visualization of the adnexal and endometrial structures by transabdominal scanning. COMPARISON: None FINDINGS: No pathologic free abdominal or pelvic fluid. Uterus: Uterus is normal in size at 9.9 x 5.3 x 6.5 cm. The endometrium measures 15.5 mm in combine d thickness. Ovaries: Within normal limits bilaterally IMPRESSION: 1. Mild endometrial thickening at 15.5 mm. 2. No acute process. Reviewed by: Placido Bacon MD on 04/25/2021 3:43 PM PDT Approved by: Placido Bacon MD on 04/25/2021 3:43 PM PDT Station ID: [id number]
== END 2021-04-25 10:01 | disposition home or self-care (01) ==
LOC: DI 10:00
PROVIDERS: ATTEND Obstetrics & Gynecology
DX: R93.89 Abnormal findings on diagnostic imaging of other specified body structures (principal)

== ENCOUNTER 2021-05-23 13:58 | Outpatient (CLI) | payer OTHER | END 2021-05-23 13:59 | disposition home or self-care (01) | LOC: LAB 13:58 | PROVIDERS: ATTEND Internal Medicine Gastroenterology | DX: Z01.812 Encounter for preprocedural laboratory examination (principal); Z20.822 Contact with and (suspected) exposure to COVID-19 ==

== ENCOUNTER 2021-08-30 06:57 | Day surgery (SDC) | payer OTHER, BC ==
[~2021-08-30 06:57] MED LIST: ACETAMINOPHEN 500 MG TABLET PO ONE; CEFAZOLIN SODIUM IN 0.9 % NACL 2 GM/100 ML BAG IV ONE; CELECOXIB 100 MG CAPSULE PO ONE; GABAPENTIN 400 MG CAPSULE ONE; PHENAZOPYRIDINE 100 MG TABLET PO ONE
[2021-08-30] MEDS ORDERED: LIDOCAINE 2%-EPI 1:100000 20 ML MDV ONE (07:00)
[2021-08-30] MEDS ORDERED: BUPIVACAINE 0.25% PF 30 ML VIAL ONE (07:00)
[2021-08-30] MEDS ORDERED: METHYLENE BLUE 0.5% 50 MG/10 ML AMPULE ONE (07:00)
[2021-08-30] MEDS ORDERED: LACTATED RINGERS 1,000 ML IV ONE ×2 (07:02→12:31)
[2021-08-30 07:24] LABS: HCG UR QUAL NEGATIVE
--- NOTE | 2021-08-30 07:39 | ANESTHESIA ---
Pre-Anesthesia VS, & Labs - Diagnosis Menorrhagia, Endometriosis - Procedure Total Laparoscopic Hysterectomy with cystoscopy Vital Signs: Temp Pulse Resp BP Pulse Ox 36 C L 50 L 18 125/73 100 08/30/21 07:15 08/30/21 07:15 08/30/21 07:15 08/30/21 07:15 08/30/21 07:15 Height: 5 ft 9 in Weight (kg): 106 kg Body Mass Index: 34.4 BMI Classification: Obese - NPO >8 hours - Is Patient ?: No - Lab Results Lab results reviewed: Yes Home Medications and Allergies Home Medications: Ambulatory Orders Cetirizine HCl [Zyrtec] 10 mg PO DAILY 08/17/21 Fluticasone [Flonase] 1 spray ALEXSANDRA DAILY 08/17/21 Esomeprazole Magnesium [Nexium] 20 mg PO BID 09/25/19 Cetirizine HCl [Zyrtec] 10 mg PO DAILY 08/17/21 Fluticasone [Flonase] 1 spray ALEXSANDRA DAILY 08/17/21 Allergies/Adverse Reactions: Allergies Allergy/AdvReac Type Severity Reaction Status Date / Time bee venom protein (honey bee) Allergy Anaphylaxis Verified 03/05/21 23:38 grass pollen Allergy Anaphylaxis Verified 03/05/21 23:38 wheat Allergy Anaphylaxis Verified 03/05/21 23:38 adhesive AdvReac Rash Verified 03/05/21 23:38 Latex, Natural Rubber AdvReac Rash Verified 03/05/21 23:38 metoprolol AdvReac Rash Verified 03/05/21 23:38 sulfamethoxazole AdvReac Hives Verified 03/05/21 23:38 [From Bactrim] trimethoprim [From Bactrim] AdvReac Hives Verified 03/05/21 23:38 Anes History & Medical History - Anesthetic History Anesthesia Complications: reports: No previous complications Family history of Anesthesia Complications: Denies Family history of Malignant Hyperthermia: Denies - Medical History Cardiovascular: reports: Atrial fibrillation, Arrhythmia, Other Pulmonary: reports: None Gastrointestinal: reports: GERD Urinary: reports: None Neuro: reports: None Musculoskeletal: reports: None Endocrine/Autoimmune: reports: None Blood Disorders: reports: None Skin: reports: None Smoking Status: Never smoker - Surgical History General: reports: Appendectomy, Other Eyes Ears Nose Throat (EENT): reports: Tonsil/Adenoidectomy Gynecologic: reports: LEEP (Cervical surgery), Other Orthopedic: reports: Other Exam General: Alert, Oriented x3, Cooperative, No acute distress Dental: WNL Mouth Openin Fingerbreadth Neck Mobility: Normal Mallampati classification: II Respiratory: Lungs clear, Normal breath sounds, No respiratory distress, No accessory muscle use Cardiovascular: Regular rate, Normal S1, Normal S2, No murmurs Plan Anesthesia Type: General Consent for Procedure(s) Verified and Reviewed: Yes Code Status: Attempt Resuscitation ASA classification: 2-Mild systemic disease Is this case an emergency?: No
[2021-08-30] MEDS ORDERED: DEXAMETHASONE 4 MG/ML VIAL ONE (08:14)
[2021-08-30] MEDS ORDERED: LIDOCAINE-MPF 2% 5 ML VIAL ONE (08:14)
[2021-08-30] MEDS ORDERED: ONDANSETRON 4 MG/2 ML VIAL ONE (08:14)
[2021-08-30] MEDS ORDERED: diphenhydrAMINE INJ 50 MG/ML VIAL ONE (08:14)
[2021-08-30] MEDS ORDERED: ROCURONIUM 50 MG/5 ML VIAL ONE ×2 (08:14→09:19)
[2021-08-30] MEDS ORDERED: PROPOFOL 200 MG/20 ML VIAL IVP ONE ×2 (08:14→12:23)
[2021-08-30] MEDS ORDERED: fentaNYL 100 MCG/2 ML VIAL ONE (08:15)
[2021-08-30] MEDS ORDERED: MIDAZOLAM 2 MG/2 ML VIAL ONE (08:15)
[2021-08-30] MEDS ORDERED: ePHEDrine 50 MG/ML VIAL IVP PRN (08:18)
[2021-08-30] MEDS ORDERED: MORPHINE 2 MG/ML CARPUJECT IVP PRN (08:18)
[2021-08-30] MEDS ORDERED: ONDANSETRON 4 MG/2 ML VIAL IVP PRN (08:18)
[2021-08-30] MEDS ORDERED: fentaNYL 100 MCG/2 ML VIAL IVP PRN (08:18)
[2021-08-30] MEDS ORDERED: METOCLOPRAMIDE 10 MG/2 ML VIAL IVP PRN (08:18)
[2021-08-30] MEDS ORDERED: NALOXONE 0.4 MG/ML VIAL IVP PRN (08:18)
[2021-08-30] MEDS ORDERED: ATROPINE ABBOJECT 1 MG/10 ML SYRINGE IVP PRN (08:18)
[2021-08-30] MEDS ORDERED: METHYLENE BLUE 0.5% 50 MG/10 ML AMPULE IR ONE ×2 (08:22)
[2021-08-30] MEDS ORDERED: LIDOCAINE 2%-EPI 1:100000 20 ML MDV SUBQ ONE ×2 (08:22)
[2021-08-30] MEDS ORDERED: BUPIVACAINE 0.25% PF 30 ML VIAL SUBQ ONE ×2 (08:23)
[2021-08-30] MEDS ORDERED: SCOPOLAMINE PATCH TOP ONE (08:59)
[2021-08-30] MEDS ORDERED: LACTATED RINGERS 1,000 ML IV SCH (09:00)
[2021-08-30] MEDS ORDERED: ePHEDrine 50 MG/ML VIAL IVP ONE (09:26)
[2021-08-30] MEDS ORDERED: HYDROmorphone 1 MG/ML CARPUJECT ONE ×2 (09:37→12:52)
[2021-08-30] MEDS ORDERED: SUGAMMADEX 200 MG/2 ML VIAL IVP ONE (10:17)
[2021-08-30] MEDS: HYDROmorphone 0.5 MG/0.5 ML SYRINGE IVP PRN ×2 (12:45→13:02)
[2021-08-30] MEDS ORDERED: ONDANSETRON ODT 4 MG TABLET TL PRN (12:51)
[2021-08-30] MEDS ORDERED: SCOPOLAMINE PATCH TOP PRN (12:51)
[2021-08-30] MEDS ORDERED: oxyCODONE 5 MG TABLET PO PRN (12:51)
[2021-08-30] MEDS ORDERED: HYDROmorphone 1 MG/ML CARPUJECT IVP PRN (12:51)
--- NOTE | 2021-08-30 12:57 | OPERATIVE REPORT ---
Operative Report - General Procedure Date: 08/30/21 Planned Procedure: Total laparoscopic hysterectomy and bilateral salpingectomy with cystoscopy Pre-Op Diagnosis: DUB and pelvic pain Procedure Performed: Total laparoscopic hysterectomy and bilateral salpingectomy with cystoscopy Post Op Diagnosis: Same - Procedure Note Primary Surgeon: Monica Black MD Secondary Surgeon: Chidi Houston MD Anesthesia Provider: Reena Laura CRNA, Missy BANDA Anesthesia Technique: General ET tube Pathology: Uterus with bilateral fallopian tubes. Left tube sent in segments. IV Fluids (mL): 1,600 Estimated Blood Loss (mL): 50 Urine Output (mL): 250 Indications: 31 yo female here for for TLH/BS/Cysto Patient was previously seen in clinic on 04/06/21 at which time she reported that she has long, heavy periods in which she is soaking her clothing. She sometimes can go through 4 tampons an hour. Also reports hx of endometriosis and dysmenorrhea. She is often anemic 2/2 blood loss. Has recurrent left sided pelvic pain due to a recurrent cyst. 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 Last pap in 2019. Endorses dyspareunia. Has had x2, one a 26 weeks. Had PP tubal ligation. Several early losses at 8-10 weeks. No STIs. Monthly menses. Has had 2 laparoscopies for endometriosis. PMH s/f GERD, ulcers, PCOS, recurrent loss, and SVT. No medications as she has also become bradycardic. Did not tolerate Holter Pelvic us 05/08/21 No pathologic free abdominal or pelvic fluid. Uterus: Uterus is normal in size at 9.9 x 5.3 x 6.5 cm. The endometrium measures 15.5 mm in combined thickness. Ovaries: Within normal limits bilaterally IMPRESSION: 1. Mild endometrial thickening at 15.5 mm. 2. No acute process. EMB 04/07/21 wnl; no hyperplasia or malgnancy Pap 04/06/21 HPB negative Pap in 2019 wnl Findings: Endometriosis implants along uterosacral ligaments. Pelvis and abdomen otherwise free of endometriosis. Normal appearing liver edge. Fallopian tubes s/p tubal ligation with fimbriated end present bilaterally. Normal appearing uterus and ovaries. Cystoscopy showed bilateral ureteral jets and absence of trauma to bladder surface. Complications: None - Other Other Information/Narrative: Risks benefits and alternatives of the procedure were reviewed. Consent was again confirmed. Patient was brought to the operating room and underwent general anesthesia. She was placed in dorsal lithotomy position with legs resting in yellowfin stirrups. SCDs were in place and activated. Cefazolin 2 g IV was administered prior to start of procedure. She was prepped and draped in the usual sterile fashion. Surgical timeout was performed. Bimanual exam was performed. Sterile speculum was placed. The cervix was visualized and a total of 10 cc of 0.25% bupivicaine and 1% with epinephrine was injected into the uterosacral ligaments. The Media Sales Representative uterine manipulator was placed, confirming that the cup was flush with the vaginal fornices. It was attached to the AlertaPhone uterine positioning system. Engle catheter was placed, the bladder was drained, and the bladder was then back filled with 50 cc of dilute methylene blue. The catheter was then clamped. The base of the umbilicus was anesthetized with intradermal injection of 0.25% bupivicaine and 1% with epinephrine . A 5 mm skin incision was made with a scalpel. A 5 mm blunt trocar was inserted under direct visualization using Visiport. Once the port was confirmed to be placed intraperitoneally, the abdomen was insufflated to 15 mmHg with CO2 gas Exploration of the abdomen and pelvis was confirmed that no injury was sustained with placement of the trocar. Two additional 5 mm ports were placed in the right and left lower quadrants, taking care to avoid the epigastric arteries, while under direct visualization via laparoscopic guidance. The abdomen was explored with the laparoscope, with findings as noted. The left fallopian tube was grasped and elevated at the fimbriated end. The underlying mesosalpinx was sealed and resected to the insertion point on the uterine cornua using the Ligarsure device. The round ligament on the left aspect of the uterus was sealed/transected/and divided. The uterine ovarian ligament was transected using the LigaSure bipolar device. The distal end of the fallopain tube, distal to the prior ligation point, was removed form the pelvis thourhg a lateral port and sent with the uterus and right tube as one pathology specimen. A bladder flap was mobilized by dividing the round ligaments using the bipolar cutting forceps, and the peritoneum on the vesicouterine fold was incised to mobilize the bladder. Once the colpotomy ring was skeletonized and in position, the uterine arteries were sealed using the bipolar forceps at the level of the colpotomy ring. This was repeated on the right aspect of the uterus in the same manner. The bladder dissection was performed over the colpotomy ring. Colpotomy was performed using Harmonic scalpel, resulting in separation of the uterus. The uterus was then delivered through the vagina. Attention was then turned to the vaginal cuff closure. V-Loc suture was passed through the port. The vaginal cuff was closed with a running suture using V-Loc suture. To confirm closure of the cuff was airtight, a series of figure of 8 sutures using 0-Vicryl were placed vaginally. Abdominal insufflation was maintained post closure. Good hemostasis was noted. At no time was spillage of methylene blue noted in the surgical field. The vaginal cuff was visualized internally and noted to have good hemostasis. Abdomen was then completely desufflated. All instruments were removed from the abdomen. Skin was closed with interrupted subcuticular stitches using 4-0 Monocryl. Dermabond was applied over the suture sites. We then turned our attention to the cystoscopic portion of the procedure. Engle catheter was removed and the cystoscope was inserted. Bladder was instilled with NS. A survey of the bladder showed no trauma or presence of suture in the bladder topography. Patient had been pretreated with pyridium. Vigorous ureteral jets were observed bilaterally. Cystoscope was removed after bladder was drained. Engle catheter was replaced. The final sponge needle and instrument counts were correct at completion of the procedure patient was awakened taken to the postanesthesia care unit in stable condition. Dr. Houston assisted with suturing, retraction, and completion of their side of the hysterectomy.
--- NOTE | 2021-08-30 12:58 | ANESTHESIA POST OP EVALUATION ---
Anesthesia Post Eval - Post Anesthesia Eval Vitals: Last Vital Signs Temp 36.2 C L 08/30/21 12:50 Pulse 76 08/30/21 12:50 Resp 13 08/30/21 12:50 BP 98/58 L 08/30/21 12:50 Pulse Ox 99 08/30/21 12:50 CV Function Including HR & BP: Stable Pain Control: Satisfactory Nausea & Vomiting: Negative Mental Status: Baseline Respiratory Status: Airway Patent Hydration Status: Satisfactory Anesthesia Complications: None
[2021-08-30] MEDS: KETOROLAC 15 MG/ML VIAL IVP SCH ×2 (14:56→21:15)
[2021-08-30] MEDS: LACTATED RINGERS 1,000 ML IV SCH (14:57)
[2021-08-30] MEDS: ACETAMINOPHEN 500 MG TABLET PO SCH ×2 (14:57→23:55)
[2021-08-30] MEDS: SIMETHICONE CHEW 80 MG TABLET PO PRN (15:10)
[2021-08-30] MEDS: GABAPENTIN 300 MG CAPSULE PO SCH ×2 (18:08→23:56)
[2021-08-30] MEDS: DOCUSATE SODIUM 100 MG CAPSULE PO SCH (21:15)
[2021-08-31] MEDS: LACTATED RINGERS 1,000 ML IV SCH (01:03)
[2021-08-31] MEDS: SIMETHICONE CHEW 80 MG TABLET PO PRN ×2 (01:16→11:27)
[2021-08-31] MEDS: KETOROLAC 15 MG/ML VIAL IVP SCH ×2 (03:09→09:14)
[2021-08-31 06:26] LABS: BASOPHILS % (AUTO) 0.3 %; EOSINOPHILS # (AUTO) 0.1 10^3/uL (0.0-0.7); EOSINOPHILS % (AUTO) 0.4 %; HCT - HEMATOCRIT 38.1 % (37.0-47.0); LYMPHOCYTES % (AUTO) 25.9 %; MEAN CORPUSCULAR HGB CONC 31.5 g/dL (32.0-36.0); MEAN CORPUSCULAR VOLUME 88.8 fL (81.0-99.0); MEAN PLATELET VOLUME 11.4 fL (7.9-10.8); MONOCYTES # (AUTO) 0.6 10^3/uL (0.0-1.0); MONOCYTES % (AUTO) 4.9 %; NEUTROPHILS # (AUTO) 7.9 10^3/uL (1.5-6.6); NEUTROPHILS % (AUTO) 68.2 %; PLT - PLATELET COUNT 303 10^3/uL (130-450); RED BLOOD COUNT 4.29 10^6/uL (4.20-5.40); RED CELL DISTRIBUTION WIDTH 13.2 % (12.0-15.0); WHITE BLOOD COUNT 11.5 x10^3/uL (4.8-10.8)
[2021-08-31] MEDS: ACETAMINOPHEN 500 MG TABLET PO SCH (08:15)
[2021-08-31] MEDS: DOCUSATE SODIUM 100 MG CAPSULE PO SCH (08:16)
[2021-08-31] MEDS: GABAPENTIN 300 MG CAPSULE PO SCH (08:16)
[2021-08-31] MEDS ORDERED: ENOXAPARIN 40 MG/0.4 ML SYRINGE SUBQ SCH (09:00)
--- NOTE | 2021-08-31 13:17 | PROVIDER PROGRESS NOTE ---
Subjective - Prog Note Date Prog Note Date: 08/31/21 Prog Note Time: 13:14 - Subjective Subjective: Patient is up and ambulating, tolerating po, and voiding. Pain is well managed with pain medications. Objective - Vital Signs/Intake & Output Reviewed Vital Signs: Yes Vital Signs: Vital Signs x48h Temp Pulse Resp BP Pulse Ox 08/31/21 08:05 98.4 F 48 L 16 112/60 96 Intake & Output: Intake & Output 08/28/21 08/29/21 08/30/21 08/31/21 23:59 23:59 23:59 23:59 Intake Total 1940 3736.667 Output Total 1370 5500 Balance 570 -1763.333 - Objective General Appearance: positive: No acute distress Respiratory: positive: Chest non-tender, No respiratory distress Cardiovascular: positive: Bradycardia (reg rhythm, baseline bradycardia) Abdomen: positive: Other (S&NT/ND. Port sites CDI) Extremities: positive: Non-tender, No pedal edema Neurologic/Psychiatric: positive: Oriented x3 - Lab Results Fish Bones: 08/31/21 06:06 Other Labs: Lab Results x24hrs 08/31/21 Range/Units 06:06 WBC 11.5 H (4.8-10.8) x10^3/uL RBC 4.29 (4.20-5.40) 10^6/uL Hgb 12.0 (12.0-16.0) g/dL Hct 38.1 (37.0-47.0) % MCV 88.8 (81.0-99.0) fL MCH 28.0 (27.0-31.0) pg MCHC 31.5 L (32.0-36.0) g/dL RDW 13.2 (12.0-15.0) % Plt Count 303 (130-450) 10^3/uL MPV 11.4 H (7.9-10.8) fL Neut # (Auto) 7.9 H (1.5-6.6) 10^3/uL Lymph # (Auto) 3.0 (1.5-3.5) 10^3/uL Jerome # (Auto) 0.6 (0.0-1.0) 10^3/uL Eos # (Auto) 0.1 (0.0-0.7) 10^3/uL Baso # (Auto) 0.0 (0.0-0.1) 10^3/uL Absolute Nucleated RBC 0.00 x10^3/uL Nucleated RBC % 0.0 /100WBC Assessment/Plan - Problem List (1) Status post hysterectomy Impression: POD#1: Doing well Voiding without PVR Pain well managed Up and ambulating Tolerating po. Meeting goals for discharge DC to home
[2021-08-31 13:47] VITALS: BP 116/61
== END 2021-08-31 13:55 | disposition home or self-care (01) ==
LOC: SDS 06:57 → FBP 12:33 → SDS 08-31 13:55
PROVIDERS: ATTEND Obstetrics & Gynecology
PROC: 0UT94ZZ Resection of Uterus, Percutaneous Endoscopic Approach (ICD-10-PCS; principal; 2021-08-30 08:30)
PROC: 0UT74ZZ Resection of Bilateral Fallopian Tubes, Percutaneous Endoscopic Approach (ICD-10-PCS; 2021-08-30 08:30)
DX: N80.0 Endometriosis of uterus (principal); D25.1 Intramural leiomyoma of uterus; N80.3 Endometriosis of pelvic peritoneum; I48.91 Unspecified atrial fibrillation; K21.9 Gastro-esophageal reflux disease without esophagitis; E28.2 Polycystic ovarian syndrome; E66.9 Obesity, unspecified; Z68.34 Body mass index [BMI] 34.0-34.9, adult; Z87.59 Personal history of other complications of pregnancy, childbirth and the puerperium; N96 Recurrent pregnancy loss; I47.1 Supraventricular tachycardia; Z86.001 Personal history of in-situ neoplasm of cervix uteri
CPT/HCPCS: 36415; 58571; 81025; 85025; A9270; J0690; J1170; J1200; J1650; J3490; J7120

== ENCOUNTER 2021-10-16 05:16 | Emergency (ER) | payer BC, OTHER ==
[2021-10-16] MEDS ORDERED: EPINEPHrine 1 MG/ML AMP IM STA (05:22)
--- NOTE | 2021-10-16 05:32 | ED Physician Documentation ---
History of Present Illness - Stated complaint Stated Complaint: ALLERGIC REACTION - History obtained from History obtained from: Patient - History of Present Illness Timing: Today - Additonal information Additional information: 31-year-old female with an allergy to wheat has eaten some dessert with a kerry cracker crust tonight. She has developed some chest tightness and shortness of breath associated with this feels lightheaded and dizzy. She has had these reactions previously a number of times and she usually carries an EpiPen with her. She is out of her EpiPen and she does not have a refill. She took some Benadryl and some Pepcid and she feels some improved but continues to have symptoms. 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 She did take 4mg but continued to have symptoms and has checked into the ED. She indicates that the epi usually works right away. Review of Systems Constitutional: denies: Fever Eyes: denies: Decreased vision Ears: denies: Ear pain Nose: denies: Rhinorrhea / runny nose, Congestion Throat: denies: Sore throat Cardiac: reports: Chest pain / pressure. denies: Palpitations Respiratory: reports: Dyspnea, Wheezing. 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: LEEP (Cervical surgery), Other HEENT: Tonsil/Adenoidectomy - Present Medications Home Medications: Ambulatory Orders Medication Instructions Recorded Confirmed EPINEPHrine [Epipen 2-Michael] 0.3 mg IJ ONCE #1 auto.injct 08/03/18 10/16/21 Esomeprazole Magnesium [Nexium] 20 mg PO BID 09/25/19 10/16/21 EPINEPHrine [Epinephrine] 0.3 mg IJ ONCE PRN #2 syr 10/16/21 - Allergies Allergies/Adverse Reactions: Allergies Allergy/AdvReac Type Severity Reaction Status Date / Time bee venom protein (honey bee) Allergy Anaphylaxis Verified 03/05/21 23:38 grass pollen Allergy Anaphylaxis Verified 03/05/21 23:38 wheat Allergy Anaphylaxis Verified 03/05/21 23:38 adhesive AdvReac Rash Verified 03/05/21 23:38 Latex, Natural Rubber AdvReac Rash Verified 03/05/21 23:38 metoprolol AdvReac Rash Verified 03/05/21 23:38 sulfamethoxazole AdvReac Hives Verified 03/05/21 23:38 [From Bactrim] trimethoprim [From Bactrim] AdvReac Hives Verified 03/05/21 23:38 - Social History Does the pt smoke?: No Smoking Status: Never smoker Does the pt drink ETOH?: No Does the pt have substance abuse?: No - Immunizations Immunizations are current?: Yes - POLST Patient has POLST: No PD ED PE NORMAL - Vitals Vital signs reviewed: Yes - General General: Alert and oriented X 3, Well developed/nourished, Other (appears anxious with pale lips ) - HEENT HEENT: Atraumatic, PERRL, EOMI - Neck Neck: Supple, no meningeal sign, No bony TTP - Cardiac Cardiac: RRR, No murmur - Respiratory Respiratory: No respiratory distress, Clear bilaterally - Abdomen Abdomen: Normal bowel sounds, Soft, Non tender, Non distended, No organomegaly - Female Female : Supervisor Landscape present - Back Back: No CVA TTP, No spinal TTP - Derm Derm: Normal color, No rash, Other (skin is diaphoretic.) - Extremities Extremities: No deformity, No edema - Neuro Neuro: Alert and oriented X 3, brake lining curer 2-12 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, No motor deficit, No sensory deficit, Normal speech Eye Opening: Spontaneous Motor: Obeys Commands Verbal: Oriented GCS Score: 15 - Psych Psych: Normal mood, Normal affect Results - Vitals Vitals: Vital Signs - 24 hr 10/16/21 10/16/21 05:18 06:11 Heart Rate 63 54 L Respiratory 12 14 Rate Blood Pressure 121/77 O2 Saturation 99 99 Oxygen O2 Source Room air PD MEDICAL DECISION MAKING - ED course Complexity details: reviewed old records, re-evaluated patient, considered differential, d/w patient ED course: 31-year-old female with food allergy to wheat has developed symptoms shortly after eating a dessert containing kerry cracker. Here in the emergency department she is treated with IM epinephrine and intravenous dexamethasone. She has already taken Benadryl and Pepcid. Departure - Departure Disposition: 01 Home, Self Care Clinical Impression: Food allergy Condition: Stable Instructions: ED Allergic React Food Follow-Up: GOPI HDZ MD [Primary Care Provider] - Prescriptions: EPINEPHrine [Epinephrine] 0.3 mg IJ ONCE PRN #2 syr PRN Reason: allergic reaction
[2021-10-16] MEDS ORDERED: DEXAMETHASONE 10 MG/ML VIAL IVP STA (05:36)
[2021-10-16 06:11] VITALS: BP 121/77
== END 2021-10-16 06:35 | disposition home or self-care (01) ==
LOC: ED 05:16
DX: T78.1XXA Other adverse food reactions, not elsewhere classified, initial encounter (principal); X58.XXXA Exposure to other specified factors, initial encounter; R06.02 Shortness of breath; R07.81 Pleurodynia; R42 Dizziness and giddiness; Z91.018 Allergy to other foods
CPT/HCPCS: 96374; 99283

== ENCOUNTER 2021-11-02 22:12 | Emergency (ER) | payer BC, OTHER ==
[2021-11-02] MEDS: CHERRY SYRUP 10 ML UDC PO ONE (22:30)
[2021-11-02] MEDS: DEXAMETHASONE 10 MG/ML VIAL PO STA (22:30)
[2021-11-02] MEDS: EPINEPHrine 1 MG/ML AMP IM STA (22:30)
[2021-11-02 22:53] VITALS: BP 95/74
--- NOTE | 2021-11-02 23:11 | ED Physician Documentation ---
History of Present Illness - Stated complaint Stated Complaint: ALLERGIC RX - Chief complaint Chief Complaint: Allergic Rx - History obtained from History obtained from: Patient - History of Present Illness Timing: Prior to arrival, Today - Additonal information Additional information: 31-year-old female with a sensitivity to wheat has reactions requiring rescue with epinephrine 6-7 times per year. Today she ate some gummy bears that she did not know contained any week. Apparently these do and she began to have reaction with dyspnea and mottling of her skin. She immediately took some Benadryl she took 50 mg orally she did not have her EpiPen with her and she has checked into the emergency department. Review of Systems Constitutional: denies: Fever Eyes: denies: Decreased vision Ears: denies: Ear pain Nose: denies: Congestion Throat: denies: Sore throat Cardiac: denies: Chest pain / pressure, Palpitations Respiratory: reports: Dyspnea. 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: Hysterectomy, LEEP (Cervical surgery), Other HEENT: Tonsil/Adenoidectomy - Present Medications Home Medications: Ambulatory Orders Medication Instructions Recorded Confirmed Esomeprazole Magnesium [Nexium] 20 mg PO BID 09/25/19 11/02/21 EPINEPHrine [Epinephrine] 0.3 mg IJ ONCE PRN #2 syr 10/16/21 11/02/21 diphenhydrAMINE HCL [Benadryl] 50 mg PO Q6HR PRN 11/02/21 11/02/21 - Allergies Allergies/Adverse Reactions: Allergies Allergy/AdvReac Type Severity Reaction Status Date / Time bee venom protein (honey bee) Allergy Anaphylaxis Verified 11/02/21 22:18 grass pollen Allergy Anaphylaxis Verified 11/02/21 22:18 wheat Allergy Anaphylaxis Verified 11/02/21 22:18 adhesive AdvReac Rash Verified 11/02/21 22:18 Latex, Natural Rubber AdvReac Rash Verified 11/02/21 22:18 metoprolol AdvReac Rash Verified 11/02/21 22:18 sulfamethoxazole AdvReac Hives Verified 11/02/21 22:18 [From Bactrim] trimethoprim [From Bactrim] AdvReac Hives Verified 11/02/21 22:18 - Social History Does the pt smoke?: No Smoking Status: Never smoker Does the pt drink ETOH?: No Does the pt have substance abuse?: No - Immunizations Immunizations are current?: Yes - POLST Patient has POLST: No PD ED PE NORMAL - Vitals Vital signs reviewed: Yes (normal ) - General General: Alert and oriented X 3, Well developed/nourished, Other (Pale appearing with mild dyspnea) - HEENT HEENT: Atraumatic, PERRL, EOMI - Neck Neck: Supple, no meningeal sign, No bony TTP - Cardiac Cardiac: RRR, No murmur - Respiratory Respiratory: No respiratory distress, Clear bilaterally, Other (exam after treatment) - Abdomen Abdomen: Soft, Non tender - Back Back: No CVA TTP, No spinal TTP - Derm Derm: Normal color, Warm and dry, No rash - Extremities Extremities: No deformity, No edema - Neuro Neuro: Alert and oriented X 3, airplane refueler 2-12 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, No motor deficit, No sensory deficit, Normal speech Eye Opening: Spontaneous Motor: Obeys Commands Verbal: Oriented GCS Score: 15 - Psych Psych: Normal mood, Normal affect Results - Vitals Vitals: Vital Signs - 24 hr 11/02/21 11/02/21 11/02/21 22:18 22:36 22:51 Temperature 36.4 C L Heart Rate 97 61 55 L Respiratory 22 14 16 Rate Blood Pressure 129/71 115/63 95/74 O2 Saturation 100 100 100 Oxygen O2 Source Room air PD MEDICAL DECISION MAKING - ED course Complexity details: reviewed old records, re-evaluated patient, considered differential, d/w patient ED course: 31-year-old female with sensitivity to wheat has had another reaction today and she was able to self administer Benadryl and did not have her epinephrine. Here in the emergency department when she arrived she appeared pale and dyspneic. She was treated with epinephrine 0.3 mg IM and dexamethasone 10 mg orally and she had improvement in her symptoms. She feels well and wants to go home. On reexamination patient's facial color is back to normal lungs are clear. Departure - Departure Disposition: 01 Home, Self Care Clinical Impression: Food allergy Condition: Stable Instructions: ED Allergic React Food Follow-Up: GOPI HDZ MD [Primary Care Provider] - John Venegas MD [Physician No Access] -
== END 2021-11-02 23:20 | disposition home or self-care (01) ==
LOC: ED 22:12
DX: T78.1XXA Other adverse food reactions, not elsewhere classified, initial encounter (principal)
CPT/HCPCS: 96372; 99283; A9270

== ENCOUNTER 2022-05-09 01:56 | Emergency (ER) | payer OTHER, BC ==
[2022-05-09 02:25] VITALS: BP 130/88
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
== END 2022-05-09 03:00 | disposition home or self-care (01) ==
LOC: ED 01:56
DX: S40.022A Contusion of left upper arm, initial encounter (principal); Y04.2XXA Assault by strike against or bumped into by another person, initial encounter; Y99.0 Civilian activity done for income or pay; I48.91 Unspecified atrial fibrillation
CPT/HCPCS: 99281; 99282

== ENCOUNTER 2022-06-01 19:12 | Emergency (ER) | payer BC, OTHER ==
[2022-06-01] MEDS ORDERED: DEXAMETHASONE 10 MG/ML VIAL IVP STA (19:16)
[2022-06-01] MEDS ORDERED: SODIUM CHLORIDE 0.9% 1,000 ML IV STA (19:16)
--- NOTE | 2022-06-01 19:18 | ED Physician Documentation ---
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 She self administered an EpiPen in the right leg and the rash went away but still feels some chest pressure and weakness and specifically weakness in the left leg. 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 : None HEENT: None Psych: None Musculoskeletal: None Derm: None - Past Surgical History Past Surgical History: Yes General: Appendectomy, Other Ortho: Other /BALANCE ENGINEER: Hysterectomy, LEEP (Cervical surgery), Other HEENT: Tonsil/Adenoidectomy - Present Medications Home Medications: Ambulatory Orders Medication Instructions Recorded Confirmed Esomeprazole Magnesium [Nexium] 20 mg PO BID 09/25/19 11/02/21 EPINEPHrine [Epinephrine] 0.3 mg IJ ONCE PRN #2 syr 10/16/21 11/02/21 diphenhydrAMINE HCL [Benadryl] 50 mg PO Q6HR PRN 11/02/21 11/02/21 EPINEPHrine [Epinephrine] 0.3 mg IJ ONCE PRN #2 dis.syr 06/01/22 - Allergies Allergies/Adverse Reactions: Allergies Allergy/AdvReac Type Severity Reaction Status Date / Time bee venom protein (honey bee) Allergy Anaphylaxis Verified 06/01/22 19:21 grass pollen Allergy Anaphylaxis Verified 06/01/22 19:21 wheat Allergy Anaphylaxis Verified 06/01/22 19:21 adhesive AdvReac Rash Verified 06/01/22 19:21 Latex, Natural Rubber AdvReac Rash Verified 06/01/22 19:21 metoprolol AdvReac Rash Verified 06/01/22 19:21 sulfamethoxazole AdvReac Hives Verified 06/01/22 19:21 [From Bactrim] trimethoprim [From Bactrim] AdvReac Hives Verified 06/01/22 19:21 - Social History Does the pt smoke?: No Smoking Status: Never smoker Does the pt drink ETOH?: No Does the pt have substance abuse?: No - Immunizations Immunizations are current?: Yes - POLST Patient has POLST: No PD ED PE NORMAL - Vitals Vital signs reviewed: Yes - General General: Alert and oriented X 3, No acute distress - HEENT HEENT: PERRL, EOMI, Other (No conjunctivitis, no oral angioedema, phonation normal) - Neck Neck: Supple, no meningeal sign, No bony TTP - Cardiac Cardiac: RRR, Other (2 out of 6 decrescendo systolic murmur which is not new per patient.) - Respiratory Respiratory: No respiratory distress, Clear bilaterally - Abdomen Abdomen: Non tender - Derm Derm: Normal color, Warm and dry - Neuro Neuro: Alert and oriented X 3, No motor deficit (Lower extremity strength is symmetric and normal), No sensory deficit, Normal speech Eye Opening: Spontaneous Motor: Obeys Commands Verbal: Oriented GCS Score: 15 Results - Vitals Vitals: Vital Signs - 24 hr 06/01/22 06/01/22 06/01/22 19:13 19:52 20:22 Temperature 37.2 C Heart Rate 100 64 64 Respiratory 18 20 16 Rate Blood Pressure 157/80 H 124/77 118/74 O2 Saturation 99 100 100 06/01/22 06/01/22 20:30 21:00 Temperature Heart Rate 64 66 Respiratory 16 16 Rate Blood Pressure 118/74 120/76 O2 Saturation 100 100 Oxygen O2 Source Room air PD MEDICAL DECISION MAKING - ED course ED course: 32-year-old woman with anaphylaxis presents still feeling bad after her EpiPen but with improved symptoms and no overt evidence of anaphylaxis clinically. She was administered Decadron and IV fluids and felt much better and was observed for couple of hours without relapse. She needed a refill of her EpiPen and this was prescribed. Departure - Departure Disposition: 01 Home, Self Care Clinical Impression: Anaphylaxis due to food Condition: Good Record reviewed to determine appropriate education?: Yes Instructions: ED Allergic Reaction General Other Prescriptions: EPINEPHrine [Epinephrine] 0.3 mg IJ ONCE PRN #2 dis.syr PRN Reason: Allergy Symptoms Comments: I sent a prescription for 2 EpiPen's to the [facility] [place] Forms: Activity restrictions Discharge Date/Time: 06/01/22 21:11
[2022-06-01 21:07] VITALS: BP 120/76
== END 2022-06-01 21:11 | disposition home or self-care (01) ==
LOC: ED 19:12
DX: T78.00XA Anaphylactic reaction due to unspecified food, initial encounter (principal)
CPT/HCPCS: 96361; 96374; 99282